=== PATIENT | male | born 1975 | race Caucasian/White ===

== ENCOUNTER 2023-04-04 07:24 | Inpatient (IN) | payer BC, SELFPAY ==
[2023-04-04] VITALS (77 sets, daily range): BP systolic 148–205; BP diastolic 87–129; PULSE 58–98; RESP 7–25; TEMP 36.5–37.1; O2SAT 88–100; BMI 29.8; BMI 32.4
[2023-04-04] MEDS: ondansetron 2 mg/ML SDV 2 mL 4 MG IVP ×2 (07:44→08:00)
[2023-04-04] MEDS: sodium chloride 0.9% 1,000 ML 999 ML IV ×2 (07:48→09:37)
[2023-04-04 07:51] LABS: Basophils # 0.1 10^3/uL (0.0-0.1); Basophils % 0.5 %; Eosinophils # 0.1 10^3/uL (0.0-0.8); Eosinophils % 0.6 %; Hematocrit 50.7 % (37-53); Lymphocytes # 1.5 10^3/uL (0.8-4.8); Lymphocytes % 11.8 %; Mean Corpuscular HGB Conc 36.7 g/dL (30-55); Mean Corpuscular Hemoglobin 36.9 pg (27-33); Mean Corpuscular Volume 100.6 fl (82-101); Mean Platelet Volume 9.2 fL (7.4-10.4); Monocytes # 0.7 10^3/uL (0.2-0.9); Neutrophils # 10.61 10^3/uL (1.8-7.7); Neutrophils % 81.6 %; Nucleated Red Blood Cells % 0 %; Platelet Count 245 10^3/cmm (157-399); Red Blood Count 5.04 10^6/uL (3.85-5.65); Red Cell Distribution Width 13.5 % (12.1-15.1); White Blood Count 12.99 10^3/uL (3.29-11.43)
--- NOTE | 2023-04-04 07:52 | ED_ITS ---
HPI - Abdominal Pain 2 General: Chief Complaint: ER Hold Stated Complaint: abd pain Time Seen by Provider: 04/04/23 07:26 Source: patient Mode of arrival: ambulatory History of Present Illness: 47-year-old male presents emergency room complaint of left flank left lower quadrant pain that began early this morning. Localizes the pain in the left lower quadrant at this time initially began in the flank he is moving around quite a bit trying to comfortable. He has been nauseous vomited a couple of times. MD elicited complaint: flank pain Onset (ago): hour(s) Pain Consistency: constant Location: L flank Severity: severe Quality: sharp Radiation: LLQ Exacerbating factors: nothing Relieving factors: nothing Associated Symptoms: Reports poor appetite and vomiting; Denies anorexia, belching, bloating, change in bowel habits, change in stool character, chills, coffee ground emesis, constipation, GI cramping, diarrhea, dyspepsia, dysuria, excessive flatus, fever(s), heartburn, hematochezia, hematuria, hematemesis, fecal incontinence, loose stools, melena, nausea and syncope Review of Systems 2 Const: Denies: fever(s) or chills Card: Denies: chest pain or syncope Resp: Denies: dyspnea GI: Reports: vomiting; Denies: abdominal pain, nausea, hematemesis, coffee ground emesis, heartburn, diarrhea, constipation, bloating, GI cramping, belching, excessive flatus, fecal incontinence, change in bowel habits, change in stool character, hematochezia or melena : Denies: dysuria, urinary frequency, urinary urgency or hematuria Musc: Denies: neck pain or back pain Skin/Breast: Denies: rash Physical Exam 2 Const: GENERAL APPEARANCE: cooperative ORIENTATION/CONSCIOUSNESS: Yes awake, Yes oriented to person, Yes oriented to place and Yes oriented to time HENMT: COMMON NORMALS: normocephalic, atraumatic and hearing grossly normal bilaterally HEAD & SCALP: normocephalic and atraumatic Resp: COMMON NORMALS: normal respiratory effort, No retractions, No use of accessory muscles and clear to auscultation bilaterally AUSCULTATION: clear to auscultation bilaterally Cardio: COMMON NORMALS: regular rate, regular rhythm and No murmurs present (Cardio) RATE: regular rate RHYTHM: regular rhythm GI: COMMON NORMALS: No hepatosplenomegaly present AUSCULTATION: Yes Hypoactive bowel sounds present PALPATION: Yes Guarding due to palpation present (GI) in the LLQ and Yes No hepatosplenomegaly present Extremity: COMMON NORMALS: normal to inspection, capillary refill normal, no clubbing, cyanosis or edema, no calf tenderness and no pedal edema Neuro: SENSORIUM/ORIENTATION: Yes oriented to person, Yes oriented to place and Yes oriented to time Skin: COMMON NORMALS: no rashes or lesions noted GENERAL SKIN EXAM: no rashes or lesions noted Course 2 Vital Signs: Vital signs: Vital Signs Temperature 98.7 F 04/04/23 07:27 Pulse Rate 68 04/04/23 10:00 Respiratory Rate 17 04/04/23 10:00 Blood Pressure 170/108 04/04/23 10:00 Pulse Oximetry 97 04/04/23 10:00 Oxygen Delivery Me thod Room Air 04/04/23 09:55 MDM - Abdominal Pain Medical Decision Making Acute alcohol-related pancreatitis slightly elevated triglycerides. Discussed Dr. Hagan will admit n.p.o. pain and nausea medications fluids as needed. CT reviewed gallbladder ultrasound negative no sign dilation of common bile duct Medical Records I reviewed the patient's medical records. Lab Data I reviewed the patient's lab results. 04/04/23 07:41 04/04/23 07:41 Labs/Radiology: Laboratory Results WBC 12.99 10^3/uL (3.29-11.43) H 04/04/23 07:41 RBC 5.04 10^6/uL (3.85-5.65) 04/04/23 07:41 Hgb 18.60 g/dL (11.27-16.99) H 04/04/23 07:41 Hct 50.7 % (37-53) 04/04/23 07:41 MCV 100.6 fl (82-101) 04/04/23 07:41 MCH 36.9 pg (27-33) H 04/04/23 07:41 MCHC 36.7 g/dL (30-55) 04/04/23 07:41 RDW 13.5 % (12.1-15.1) 04/04/23 07:41 Plt Count 245 10^3/cmm (157-399) 04/04/23 07:41 MPV 9.2 fL (7.4-10.4) 04/04/23 07:41 Neut % (Auto) 81.6 % 04/04/23 07:41 Lymph % (Auto) 11.8 % 04/04/23 07:41 Imperial % (Auto) 5.0 % 04/04/23 07:41 Eos % (Auto) 0.6 % 04/04/23 07:41 Baso % (Auto) 0.5 % 04/04/23 07:41 Neut # (Auto) 10.61 10^3/uL (1.8-7.7) H 04/04/23 07:41 Lymph # (Auto) 1.5 10^3/uL (0.8-4.8) 04/04/23 07:41 Imperial # (Auto) 0.7 10^3/uL (0.2-0.9) 04/04/23 07:41 Eos # (Auto) 0.1 10^3/uL (0.0-0.8) 04/04/23 07:41 Baso # (Auto) 0.1 10^3/uL (0.0-0.1) 04/04/23 07:41 Nucleated RBC % (auto) 0 % 04/04/23 07:41 Nucleated RBCs # 0.0 /100WBC 04/04/23 07:41 Sodium 139 mmol/L (136-145) 04/04/23 07:41 Potassium 2.7 mmol/L (3.5-5.1) L* 04/04/23 07:41 Chloride 99 mmol/L (98-107) 04/04/23 07:41 Carbon Dioxide 29 mmol/L (22-29) 04/04/23 07:41 Anion Gap 13.7 (5-19) 04/04/23 07:41 BUN 8 mg/dL (6-20) 04/04/23 07:41 Creatinine 0.9 mg/dL (0.7-1.2) 04/04/23 07:41 GFR Calculation 90.8 mL/min (90-130) 04/04/23 07:41 Glucose 149 mg/dL (65-115) H 04/04/23 07:41 Calculated Osmolality 289 mOsm/kg (285-295) 04/04/23 07:41 Calcium 9.3 mg/dL (8.5-10.5) 04/04/23 07:41 Magnesium 1.9 mg/dL (1.7-2.3) 04/04/23 07:41 Total Bilirubin 1.3 mg/dL (0.15-1.2) H 04/04/23 07:41 AST 45 U/L (0-40) H 04/04/23 07:41 ALT 43 U/L (0-41) H 04/04/23 07:41 Alkaline Phosphatase 78 U/L (40-130) 04/04/23 07:41 Total Protein 7.4 g/dL (6.6-8.7) 04/04/23 07:41 Albumin 4.4 g/dL (3.5-5.2) 04/04/23 07:41 Globulin 3.0 g/dL (1.3-4.6) 04/04/23 07:41 Triglycerides 442 mg/dL (0-150) H 04/04/23 07:41 LDL Cholesterol Direct 106 mg/dL (0-100) H 04/04/23 07:41 Lipase 1229 U/L (13-60) H 04/04/23 07:41 Urine Color Dark yellow (Yellow) 04/04/23 08:18 Urine Appearance Clear (CLEAR) 04/04/23 08:18 Urine pH 5 (5-7) 04/04/23 08:18 Ur Specific Ecru 1.030 (1.005-1.030) 04/04/23 08:18 Urine Protein 1+ (Negative) H 04/04/23 08:18 Urine Glucose (UA) Norm (Normal) 04/04/23 08:18 Urine Ketones 1+ (Negative) H 04/04/23 08:18 Urine Blood 2+ (Negative) H 04/04/23 08:18 Urine Nitrate Negative (Negative) 04/04/23 08:18 Urine Bilirubin 1+ (Negative) H 04/04/23 08:18 Urine Urobilinogen 1 mg/dL (Negative) H 04/04/23 08:18 Ur Leukocyte Esterase Trace (Negative) H 04/04/23 08:18 Urine RBC 0-4 /hpf (0-2) H 04/04/23 08:18 Urine WBC 0-4 /hpf (0-5) H 04/04/23 08:18 Ur Squamous Epith Cells Rare /hpf (0-5) 04/04/23 08:18 Ur Transition Epith Cell 0-4 /hpf 04/04/23 08:18 Amorphous Sediment Not Reportable 04/04/23 08:18 Urine Bacteria Trace /hpf (NONE) 04/04/23 08:18 Urine Mucus 4+ /hpf 04/04/23 08:18 Ethyl Alcohol < 10 mg/dL (0-10) 04/04/23 07:41 All radiology interpretation(s) finalized by discharge Discharge Plan Discharge Patient Disposition: Admitted As Inpatient Admit Provider: Aaron Hagan Clinical Impression: Pancreatitis Condition: Stable Coding Level of Care Code ED Vice President Of Instruction for Janneth Leone
--- NOTE | 2023-04-04 07:56 | ECG_ITS ---
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 Measurements Intervals Gardner Rate: 62 P: 39 AK: 142 QRS: 40 QRSD: 83 T: -16 QT: 402 QTc: 408 Interpretive Statements SINUS RHYTHM NONSPECIFIC T-WAVE ABNORMALITY No previous ECG available for comparison Electronically Signed On 04-04-2023 12:16:59 TELESCOPE REPAIRER by Anisha Degroot M.D. [id number]
--- NOTE | 2023-04-04 07:56 | CT_ITS ---
WS: [id number] CT scan of the abdomen and pelvis without Oral and IV contrast. Additional two-dimensional coronal an d sagittal reconstruction was performed. 04/04/2023 Clinical Data: flank pain Comparison: None. DLP: 1006.[address] scans at [facility] use at least one of these dose optimization techniques: automated e xposure control; mA and/or kV adjustment per patient size (includes targeted exams where dose is matc hed to clinical indication); or iterative reconstruction. Findings: The lower lungs show no nodules, masses or effusions. The liver, gallbladder, spleen and adrenal glands are normal. The pancreas is swollen with peripancre atic edema. There is a small amount of intraperitoneal fluid. There are no pancreatic masses, abscess es or cyst formation. The kidneys show no cysts or masses. No renal calculi are present. The stomach , small bowel and colon show no abnormalities. No adenopathy, abscess, obstruction or free air is see n. The abdominal aorta is normal in size. No appendicitis or diverticulitis is seen. The bladder is unremarkable. There are small bilateral inguinal hernias. The bones of the lower thora x, lumbar spine, pelvis, and hips are normal. Impression: 1. Diffuse pancreatitis with peripancreatic edema and minimal peritoneal fluid. 2. Normal aorta.
--- NOTE | 2023-04-04 07:56 | XR_ITS ---
WS: [id number] Exam: XR chest 1V portable [id number] Date/Time of Exam: 04/04/2023 8:06 AM Reason For Exam: dyspnea/cough No priors. The lungs are clear and fully expanded. No pleural effusions. Regional bony elements are intact. Heal ed RIGHT clavicle fracture. IMPRESSION: 1. Negative chest.
[2023-04-04] MEDS: morphine 4 mg/mL SDV 1 mL IVP ×3 (08:00→15:59)
[2023-04-04 08:09] LABS: Alanine Aminotransferase 43 U/L (0-41); Albumin Level 4.4 g/dL (3.5-5.2); Alkaline Phosphatase 78 U/L (40-130); Anion Gap 13.7 (5-19); Aspartate Amino Transferase 45 U/L (0-40); Blood Urea Nitrogen 8 mg/dL (6-20); Calcium 9.3 mg/dL (8.5-10.5); Carbon Dioxide 29 mmol/L (22-29); Chloride 99 mmol/L (98-107); Creatinine Clr Calc Pharmacy 125.4436; Glomerular Filtration Rate 90.8 mL/min (90-130); Glucose 149 mg/dL (65-115); Osmolality Calculated 289 mOsm/kg (285-295); Sodium 139 mmol/L (136-145); Total Bilirubin 1.3 mg/dL (0.15-1.2); Total Protein 7.4 g/dL (6.6-8.7)
[2023-04-04 08:12] LABS: Potassium 2.7 mmol/L (3.5-5.1)
[2023-04-04 08:24] LABS: Lipase 1229 U/L (13-60)
--- NOTE | 2023-04-04 08:29 | US_ITS ---
WS: [id number] Gallbladder and right upper quadrant 04/04/2023 ultrasound, Clinical Data: pancreatitis, elevated LFTS, T bili Comparison: None. Findings: The gallbladder shows no stone. Sludge is present. There are multiple gallbladder polyps. The wall me asures 0.2 cm with no pericholecystic fluid. The common bile duct is 0.3 cm and there are no intrahepatic ductal abnormalities. Liver shows no cysts, masses or dilated intrahepatic ducts. The pancreas is obscured by overlying bowel gas. Right kidney measures 11.6 cm and no cyst, masses or hydronephrosis can be seen. The aorta was not seen and the inferior vena cava shows no vascular abnormalities. Impression: 1. Pancreas obscured by overlying bowel gas. 2. Multiple gallbladder polyps. 3. Abdominal aorta not seen.
[2023-04-04 08:50] LABS: Add Urine Microscopic? YES; Bilirubin Urine 1+ (Negative); Blood Urine 2+ (Negative); Glucose Urine UA Norm (Normal); Ketones Urine 1+ (Negative); Leukocyte Esterase Urine Trace (Negative); Nitrate Urine Negative (Negative); Protein Urine 1+ (Negative); Urine Appearance Clear (CLEAR); Urine Color Dark Yellow (Yellow); Urobilinogen Urine 1 mg/dL (Negative); pH Urine 5 (5-7)
--- NOTE | 2023-04-04 08:52 | PC.PHAR ---
pt states he takes no prescription medications-pt states just takes prn tylenol
[2023-04-04 09:04] LABS: Add Urine Culture? No; Bacteria Urine TRACE /hpf; Mucus Urine 4+ /hpf; RBC Urine 0-4 /hpf (0-2); Squamous Epithelial Cell Urine RARE /hpf (0-5); Transitional Epi Cells Urine 0-4 /hpf; WBC Urine 0-4 /hpf (0-5)
[2023-04-04 09:13] LABS: Alcohol Level < 10 mg/dL (0-10)
[2023-04-04] MEDS: HYDROmorphone 1 mg/mL INJ 1 mL IVP ×5 (09:37→23:12)
[2023-04-04] MEDS: potassium chloride premix 100 ML 25 MEQ IV (09:41)
[2023-04-04 10:09] LABS: Triglycerides 442 mg/dL (0-150)
[2023-04-04 10:28] LABS: LDL Cholesterol Direct 106 mg/dL (0-100)
[2023-04-04 10:41] LABS: Magnesium 1.9 mg/dL (1.7-2.3)
[2023-04-04] MEDS: D5-NS 0.45% + KCL 20 mEq 20 MEQ/1,000 ML BAG 100 MEQ IV ×2 (12:14→20:19)
--- NOTE | 2023-04-04 13:15 | P.HP_ITS ---
Providers/Chief Complaint 2 Admitting Physician: Aaron Hagan MD Chief Complaint: abd pain History of Present Illness Xander Mcmillan is a 47 year old male presenting to the emergency department with 1 day of abdominal pain. He thinks this started in the left flank or left upper quadrant but quickly spread to the rest of his abdomen. He has had some vomiting. He denies any blood in his emesis or blood in the stool. His last bowel movement was yesterday. He reports a prior history of pancreatitis, with similar pain for which she was hospitalized in [place]. He reports he does drink alcohol, but he does not think it is a big amount. When asked if he might withdrawal from alcohol, he is uncertain and thinks that he might. Some subjective fever. No shortness of breath or chest discomfort. No cough. Review of Systems 2 General: Reports: 10 or more systems reviewed and unremarkable except in HPI and below Card: Denies: chest pain Resp: Denies: dyspnea GI: Reports: abdominal pain, nausea and vomiting; Denies: hematochezia or melena Medications/Allergies Home Medications Medication Instructions Recorded Confirmed Last Taken Type acetaminophen 500 mg tablet 1,000 mg PO Q6H PRN Pain 04/04/23 04/04/23 04/04/23 05:00 History Allergies Allergy/AdvReac Type Severity Reaction Status Date / Time No Known Allergies Allergy Verified 04/04/23 08:51 PFSH Acute 2 PFSH: Medical History (Updated 04/04/23 @ 13:22 by Aaron Hagan MD) Pancreatitis Surgical History (Updated 04/04/23 @ 13:18 by Aaron Hagan MD) History of ear surgery Family History (Updated 04/04/23 @ 13:18 by Aaron Hagan MD) Other Cancer Social History (Updated 04/04/23 @ 13:18 by Aaron Hagan MD) Smoking and tobacco/nicotine status: current every day tobacco/nicotine user Alcohol intake: current Substance/Drug Use: never Vitals/I&O/Wt Last Vital Signs Temp 98.7 F 04/04/23 07:27 Pulse 63 04/04/23 12:30 Resp 20 H 04/04/23 12:30 BP 165/99 04/04/23 12:30 Pulse Ox 100 04/04/23 12:30 O2 Del Method Room Air 04/04/23 11:45 04/03/23 04/04/23 04/04/23 22:59 06:59 14:59 Intake Total 2062.75 / 2062.75 Balance 2062.75 / 2062.75 Weight last 48 hrs Weight 99.79 kg Physical Exam 2 Narrative: General exam demonstrates a white male, complaining of abdominal pain. He appears uncomfortable during the exam. HEENT: Atraumatic and normocephalic. Mucous membranes dry. Neck is supple Cardiovascular regular rate and rhythm, no murmur Lungs clear Abdomen is tender, diffusely. No significant distention. A few bowel sounds are heard. Cannot determine if there is any organomegaly. exams deferred Extremities no cyanosis, edema, cap refill brisk Skin no rash Neuro no obvious focal deficits Data 04/04/23 07:41 04/04/23 07:41 Other Labs: Liver function tests are elevated with bilirubin of 1.3, AST of 45, ALT of 43. Albumin, alk phos, calcium, magnesium all normal. Triglycerides 442, lipase 1229. Urinalysis 0-4 reds 0-4 whites. Alcohol level less than 10. Gallbladder ultrasound demonstrates no evidence of obstruction. Multiple gallbladder polyps Chest x-ray by my review no infiltrate CT abdomen pelvis which I did review demonstrates pancreatic edema EKG which I reviewed demonstrates sinus rhythm, normal axis, nonspecific changes A&P Assessment and plan (1) Pancreatitis: Patient presents with acute pancreatitis demonstrated by clinical symptomatology, CT evidence, and elevated lipase Pain control with morphine as needed. Nausea control with Zofran. Hydration Triglycerides were checked and elevated, but not so significantly pancreatitis would be expected from them. Encourage patient abstain from alcohol (2) Nicotine dependence: Encourage abstinence from smoking Start nicotine patch 21 mg daily (3) Transaminitis: Likely secondary to alcohol CBC and CMP daily (4) Hyperglycemia: Check hemoglobin A1c. If elevated counseled patient, ultimately change diet to consistent carb (5) Hypokalemia: Supplementation started in the emergency department with IV potassium Recheck tomorrow Magnesium level was checked and normal (6) Alcohol use: Patient with history of significant alcohol use Monitor for withdrawal [facility] protocol Plan Other medical problems as listed in past medical history Full code SCDs, Lovenox for DVT prophylaxis Patient without primary care provider. Will need to arrange on discharge. Attestations 2 Medical Necessity Statement*: Will require greater than 2 midnight stay for evaluation and treatment of alcohol induced pancreatitis Diagnoses Pancreatitis K85.90 Nicotine dependence F17.200 Transaminitis R74.01 Hyperglycemia R73.9 Hypokalemia E87.6 Alcohol use Z78.9 Time Spent (min) 56
[2023-04-04] MEDS: enoxaparin 40 mg/0.4 mL Syringe SUBCUT (14:28)
[2023-04-04] MEDS: nicotine 21 mg Patch 1 PATCH TRANSDERMA (14:32)
[2023-04-04 14:51] LABS: Estmated Average Glucose 91; Hemoglobin A1C 4.8 % (4.0-6.0)
[2023-04-05] VITALS (17 sets, daily range): BP systolic 140–172; BP diastolic 85–125; PULSE 95–124; RESP 16–22; TEMP 36.5–37.6; O2SAT 92–95; BMI 32.5
[2023-04-05] MEDS: morphine 4 mg/mL SDV 1 mL 2 MG IVP (01:08)
[2023-04-05] MEDS: HYDROmorphone 1 mg/mL INJ 1 mL IVP ×6 (05:52→21:16)
[2023-04-05] MEDS: D5-NS 0.45% + KCL 20 mEq 20 MEQ/1,000 ML BAG 100 MEQ IV ×2 (05:53→17:15)
[2023-04-05 05:59] LABS: Basophils % 0.1 %; Hematocrit 47.4 % (37-53); Lymphocytes # 0.8 10^3/uL (0.8-4.8); Lymphocytes % 5.5 %; Mean Corpuscular HGB Conc 36.5 g/dL (30-55); Mean Corpuscular Hemoglobin 37.1 pg (27-33); Mean Corpuscular Volume 101.7 fl (82-101); Mean Platelet Volume 9.5 fL (7.4-10.4); Monocytes # 0.8 10^3/uL (0.2-0.9); Monocytes % 5.1 %; Neutrophils # 13.47 10^3/uL (1.8-7.7); Neutrophils % 88.9 %; Nucleated Red Blood Cells % 0 %; Platelet Count 176 10^3/cmm (157-399); Red Blood Count 4.66 10^6/uL (3.85-5.65); Red Cell Distribution Width 13.7 % (12.1-15.1); White Blood Count 15.16 10^3/uL (3.29-11.43)
[2023-04-05 06:22] LABS: Alanine Aminotransferase 26 U/L (0-41); Albumin Level 3.4 g/dL (3.5-5.2); Alkaline Phosphatase 52 U/L (40-130); Anion Gap 13.1 (5-19); Aspartate Amino Transferase 25 U/L (0-40); Blood Urea Nitrogen 5 mg/dL (6-20); Calcium 7.7 mg/dL (8.5-10.5); Carbon Dioxide 25 mmol/L (22-29); Chloride 101 mmol/L (98-107); Globulin 2.7 g/dL (1.3-4.6); Glomerular Filtration Rate 121.4 mL/min (90-130); Glucose 105 mg/dL (65-115); Magnesium 1.6 mg/dL (1.7-2.3); Osmolality Calculated 280 mOsm/kg (285-295); Potassium 3.1 mmol/L (3.5-5.1); Sodium 136 mmol/L (136-145); Total Bilirubin 1.1 mg/dL (0.15-1.2); Total Protein 6.1 g/dL (6.6-8.7)
[2023-04-05] MEDS: magnesium sulfate premix 2 GM/50 ML PIGGYBACK IV (08:14)
[2023-04-05] MEDS: acetaminophen 325 mg Tablet 650 MG PO (08:16)
[2023-04-05] MEDS: folic acid 1 mg Tablet PO (08:17)
[2023-04-05] MEDS: multivitamin therapeutic Tablet 1 TAB PO (08:17)
[2023-04-05] MEDS: thiamine 100 mg Tablet PO (08:17)
[2023-04-05] MEDS: lisinopril 10 mg Tablet PO (08:17)
[2023-04-05] MEDS: nicotine 21 mg Patch 1 PATCH TRANSDERMA (08:17)
[2023-04-05] MEDS: potassium chloride ER 20 mEq Tablet 40 MEQ PO (08:17)
[2023-04-05] MEDS: lidocaine 1% 5 ML in potassium chloride premix 100 ML 26.25 ML IV (08:27)
--- NOTE | 2023-04-05 08:58 | PC.CHAP ---
Pastoral Care Encounter/Spiritual Assessment Type of Contact [] Declined supercalender operator visit [] Patient/Family/Request visit [] Outpatient visit [] Follow-up visit [] Physician referral [] Code/Alert [x] Routine visit [] Staff referral [] Actively dying [] Patient sleeping [x] Family support [] [] Out of room [] Palliative care [] [] Receiving care in room [] Pre-surgical visit [] Trauma [] Long length of stay [] ICU visit [] Other: Relational/Emotional Strength [x] Patient feels connected with others/family/visitors/staff [] Distress [] Loneliness/isolation [] Abandonment Spirituality of Patient [x] Person of Radha [] Attends Rastafarian of their Radha [x] Believes in Prayer [] Reads Bible or Nondenominational materials [] There are Spiritual issues to be addressed Office Technology Professor Interventions [x] Prayer [x] Active listening [] Non-anxious presence [x] Spiritual/emotional support [] Crisis/trauma care [] Spiritual counseling [] Bereavement support [] Provided bereavement packet [] Provided Bible/devotional materials [] Provided toy/stuffed animal, coloring book to patient or family member [] Provided Communion [] Anointing/[place] [] Salvation [x] Completed spiritual assessment [] Other: Impact on Illness or Injury [] Angry [] Fearful [] Anxious [] Often cries [] Exhaustion [] Unable to work [] Unable to attend mu-ism [] Unable to walk/stand [] Unable to read [] Unable to drive [] Unable to eat/drink [] Unable to sleep [] Unable to be with family [] Patient intubated [] Other: Summary Time spent with patient 5 min
--- NOTE | 2023-04-05 09:05 | P.PN_ITS ---
Documented by User: carl Singer 04/05/23 09:15 Subjective 2 Subjective: Patient was evaluated this morning while lying in bed on room air. Patient states pain is slightly improved although reports pain a current 8/10 on pain scale. Patient reports current IV pain medication is controlling pain for a little bit but pain continues to return. Patient does report some nausea but denies any vomiting, fevers, chills, chest pain, shortness of breath. Reports that he is urinating and having bowel movements regularly. No other complaints at this time. Medications: Reviewed: Yes Vitals/I&O/Wt Last Vital Signs Temp 97.7 F 04/05/23 08:00 Pulse 97 04/05/23 08:00 Resp 17 04/05/23 08:49 BP 172/112 04/05/23 08:00 Pulse Ox 95 04/05/23 04:00 O2 Del Method Room Air 04/05/23 04:00 04/04/23 04/05/23 04/05/23 22:59 06:59 14:59 Intake Total 1048.333 / 3112.083 956.667 / 4068.750 60 / 60 Output Total 600 / 600 Balance 1048.333 / 3112.083 356.667 / 3468.750 60 / 60 Weight last 48 hrs Weight 108.771 kg Weight 108.59 kg Weight 99.79 kg Physical Exam 2 Narrative: General exam demonstrates a white male, complaining of abdominal pain. HEENT: Normocephalic, dry mucous membranes. Neck is supple Cardiovascular regular rate and rhythm, no murmur Lungs clear Abdomen is tender, diffusely. No significant distention. A few bowel sounds are heard. Cannot determine if there is any organomegaly. exams deferred Extremities no cyanosis, edema, cap refill brisk Skin no rash Neuro no obvious focal deficits Data 04/05/23 04:28 04/05/23 04:28 Other Labs: WBC 15.16, MCV 101.7, potassium 3.1, magnesium 1.6, A&P Assessment and plan (1) Pancreatitis: Pain control with Dilaudid. Nausea controlled with Zofran Continue IV hydration. Clear liquid diet at this time. Patient tolerating well. Alcohol cessation discussed. (2) Nicotine dependence: Nicotine cessation discussed. NicoDerm patch 20 mg daily. (3) Transaminitis: Monitor CBC and CMP daily. Most likely due to alcohol. (4) Hyperglycemia: Check hemoglobin A1c. If elevated counseled patient, ultimately change diet to consistent carb (5) Hypokalemia: Potassium 3.1 this a.m. Replace with 40 mEq IV and 40 mEq p.o. Magnesium 1.6 this a.m. Magnesium 2 g IV replacement. CMP in AM. (6) Alcohol use: As per #1 and #3 Continue to monitor for withdrawal CIWA protocol in place. Patient receiving Ativan and tolerating well. Plan Plan as stated above. Replace electrolytes today and continue pain control with Dilaudid. Patient tolerating clear liquid diet well. Full code SCDs, Lovenox for DVT prophylaxis Will need to arrange primary care provider upon discharge. Coding Level of Care Code 35874 Diagnoses Pancreatitis K85.90 Nicotine dependence F17.200 Transaminitis R74.01 Hyperglycemia R73.9 Hypokalemia E87.6 Alcohol use Z78.9 Time Spent (min) 25 Documented by User: Aaron Hagan MD 04/05/23 09:44 Physical Exam 2 Narrative: General exam demonstrates a white male, complaining of abdominal pain. HEENT: Normocephalic, dry mucous membranes. Neck is supple Cardiovascular regular rate and rhythm, no murmur Lungs clear Abdomen is tender, diffusely. No significant distention. A few bowel sounds are heard. Cannot determine if there is any organomegaly. exams deferred Extremities no cyanosis, edema, cap refill brisk Data 04/05/23 04:28 04/05/23 04:28 A&P Assessment and plan (1) Pancreatitis: (2) Nicotine dependence: (3) Transaminitis: These are normalized (4) Hyperglycemia: A1c is 4.8% (5) Hypokalemia: (6) Alcohol use: Attestations 2 Medical Necessity Statement*: Needs continued hospital stay for IV fluids, pain control secondary to pancreatitis not yet improved Diagnoses Pancreatitis K85.90 Nicotine dependence F17.200 Transaminitis R74.01 Hyperglycemia R73.9 Hypokalemia E87.6 Alcohol use Z78.9 Time Spent (min) 25
[2023-04-05] MEDS: enoxaparin 40 mg/0.4 mL Syringe SUBCUT (15:07)
[2023-04-05] MEDS: ondansetron 2 mg/ML SDV 2 mL 4 MG IVP (21:25)
[2023-04-06] VITALS (12 sets, daily range): BP systolic 132–176; BP diastolic 82–93; PULSE 107–114; RESP 16–18; TEMP 36.6–37; O2SAT 92–94; BMI 33.2
[2023-04-06] MEDS: HYDROmorphone 1 mg/mL INJ 1 mL IVP ×6 (00:39→23:30)
[2023-04-06] MEDS: D5-NS 0.45% + KCL 20 mEq 20 MEQ/1,000 ML BAG 100 MEQ IV ×3 (03:52→23:30)
[2023-04-06] MEDS: acetaminophen 325 mg Tablet 650 MG PO (05:28)
[2023-04-06 05:33] LABS: Basophils % 0.2 %; Eosinophils % 0.1 %; Hematocrit 43.5 % (37-53); Lymphocytes # 0.9 10^3/uL (0.8-4.8); Lymphocytes % 4.8 %; Mean Corpuscular HGB Conc 36.6 g/dL (30-55); Mean Corpuscular Volume 101.2 fl (82-101); Mean Platelet Volume 9.8 fL (7.4-10.4); Monocytes % 5.4 %; Neutrophils # 15.85 10^3/uL (1.8-7.7); Neutrophils % 88.3 %; Nucleated Red Blood Cells % 0 %; Platelet Count 158 10^3/cmm (157-399); White Blood Count 17.95 10^3/uL (3.29-11.43)
[2023-04-06 07:02] LABS: Alanine Aminotransferase 19 U/L (0-41); Alkaline Phosphatase 51 U/L (40-130); Anion Gap 14.2 (5-19); Aspartate Amino Transferase 23 U/L (0-40); Blood Urea Nitrogen 6 mg/dL (6-20); Calcium 7.3 mg/dL (8.5-10.5); Carbon Dioxide 24 mmol/L (22-29); Chloride 101 mmol/L (98-107); Globulin 2.4 g/dL (1.3-4.6); Glomerular Filtration Rate 121.4 mL/min (90-130); Glucose 102 mg/dL (65-115); Magnesium 1.9 mg/dL (1.7-2.3); Osmolality Calculated 280 mOsm/kg (285-295); Potassium 3.2 mmol/L (3.5-5.1); Sodium 136 mmol/L (136-145); Total Bilirubin 1.3 mg/dL (0.15-1.2); Total Protein 5.4 g/dL (6.6-8.7)
[2023-04-06] MEDS: amlodipine 5 mg Tablet PO (08:28)
[2023-04-06] MEDS: thiamine 100 mg Tablet PO (08:28)
[2023-04-06] MEDS: nicotine 21 mg Patch 1 PATCH TRANSDERMA (08:28)
[2023-04-06] MEDS: folic acid 1 mg Tablet PO (08:28)
[2023-04-06] MEDS: multivitamin therapeutic Tablet 1 TAB PO (08:28)
[2023-04-06] MEDS: enoxaparin 40 mg/0.4 mL Syringe SUBCUT (13:06)
--- NOTE | 2023-04-06 16:01 | XRR_ITS ---
PROCEDURE INFORMATION: Exam: XR Abdomen Exam date and time: 04/06/2023 5:30 PM Age: 47 years old Clinical indication: Abdominal tenderness and bloating; Patient HX: Pancreatitis; Abdominal distention; Suspected ileus; Additional info: Evalaute for ileus, severe pancreatitis, now with abdominal distension, evalaute TECHNIQUE: Imaging protocol: Radiologic exam of the abdomen. Views: Frontal supine view of the abdomen. 1 View. COMPARISON: CT kidney stone [id number] 04/04/2023 9:11 AM FINDINGS: Gastrointestinal tract: Normal. No bowel dilation. Bones/joints: Moderate osteoarthritis of the hips bilaterally. XR/XR abdomen 1V* [id number] IMPRESSION: Moderate osteoarthritis of the hips bilaterally.
[2023-04-06] MEDS: ketorolac 30 mg/mL INJ 15 MG IVP ×2 (16:28→22:15)
--- NOTE | 2023-04-06 23:07 | P.PN_ITS ---
Subjective 2 Subjective: c/o abdominal pain worsened today and also abdominal distension. Has not had BM today. states not passing much flatus. Medications: Reviewed: Yes Vitals/I&O/Wt Last Vital Signs Temp 98 F 04/06/23 20:00 Pulse 107 H 04/06/23 20:00 Resp 17 04/06/23 20:00 BP 152/92 04/06/23 20:00 Pulse Ox 94 04/06/23 20:00 O2 Del Method Room Air 04/06/23 15:57 04/06/23 04/06/23 04/07/23 14:59 22:59 06:59 Intake Total 1150 / 1150 240 / 1390 Output Total 100 / 100 500 / 600 Balance 1050 / 1050 -260 / 790 Weight last 48 hrs Weight 111.039 kg Weight 108.771 kg Physical Exam 2 Narrative: General: No acute distress, AO x3 HEENT: PERRLA, pupils bilaterally equal and reactive, pallors not present Chest: Normal vesicular breath sounds, no added sounds, equal good air entry bilaterally CVS: S1-S2 regular, no murmurs, no tachycardia, no gallops, no rubs Abdomen: Soft, tender in epigastria area, no organomegaly, bowel sounds sluggish Neuro: No focal deficits, no facial deformity, AO x3, power 5/5 in all limbs Data 04/07/23 04:33 04/07/23 04:33 A&P Assessment and plan (1) Pancreatitis: Pain control with Dilaudid. Nausea controlled with Zofran Continue IV hydration. Clear liquid diet at this time. Patient tolerating well. Alcohol cessation discussed. (2) Nicotine dependence: Nicotine cessation discussed. NicoDerm patch 20 mg daily. (3) Transaminitis: These are normalized (4) Hyperglycemia: A1c is 4.8% (5) Hypokalemia: Potassium 3.1 this a.m. Replace with 40 mEq IV and 40 mEq p.o. Magnesium 1.6 this a.m. Magnesium 2 g IV replacement. CMP in AM. (6) Alcohol use: As per #1 and #3 Continue to monitor for withdrawal CIWA protocol in place. Patient receiving Ativan and tolerating well. Plan Plan as stated above. Replace electrolytes today and continue pain control with Dilaudid. Patient tolerating clear liquid diet well. Full code SCDs, Lovenox for DVT prophylaxis Will need to arrange primary care provider upon discharge. Plan for today: 04/06. Inadeqautely controlled pain. He is tender in the epigatsric area. add toradol 15 mg iv q6h prn for pain control. Iv tylenol x 1 for pain. Check X ray abdomen to evaluate for possible ileus. Add prn bowel regimen with opiates. Continue clears if X ray without ileus. Attestations 2 Medical Necessity Statement*: inadequate pain control. Add iv toradol in addition to iv dilaudid. Check X ray abdomen for ileus Coding Level of Care Code Acute Code for Chg Fwd Diagnoses Pancreatitis K85.90 Nicotine dependence F17.200 Transaminitis R74.01 Hyperglycemia R73.9 Hypokalemia E87.6 Alcohol use Z78.9
[2023-04-07] VITALS (12 sets, daily range): BP systolic 122–163; BP diastolic 71–97; PULSE 97–107; RESP 13–18; TEMP 36.6–37; O2SAT 94–97
[2023-04-07] MEDS: lidocaine 2% viscous 15 ML, aluminum-mag hydrox-simethicon 30 ML, sucralfate oral liq 1 GM PO (00:14)
[2023-04-07] MEDS: HYDROmorphone 1 mg/mL INJ 1 mL IVP ×6 (03:00→22:30)
[2023-04-07] MEDS: ketorolac 30 mg/mL INJ 15 MG IVP ×2 (04:17→09:49)
[2023-04-07 05:02] LABS: Basophils % 0.3 %; Eosinophils # 0.1 10^3/uL (0.0-0.8); Eosinophils % 0.6 %; Hematocrit 38.4 % (37-53); Lymphocytes # 0.9 10^3/uL (0.8-4.8); Lymphocytes % 6.8 %; Mean Corpuscular HGB Conc 35.9 g/dL (30-55); Mean Corpuscular Hemoglobin 36.9 pg (27-33); Mean Corpuscular Volume 102.7 fl (82-101); Mean Platelet Volume 9.9 fL (7.4-10.4); Monocytes # 0.9 10^3/uL (0.2-0.9); Monocytes % 6.8 %; Neutrophils # 11.41 10^3/uL (1.8-7.7); Neutrophils % 84.8 %; Nucleated Red Blood Cells % 0 %; Platelet Count 150 10^3/cmm (157-399); Red Blood Count 3.74 10^6/uL (3.85-5.65); Red Cell Distribution Width 13.7 % (12.1-15.1); White Blood Count 13.46 10^3/uL (3.29-11.43)
[2023-04-07 05:23] LABS: Alanine Aminotransferase 17 U/L (0-41); Albumin Level 2.7 g/dL (3.5-5.2); Alkaline Phosphatase 97 U/L (40-130); Anion Gap 12.2 (5-19); Aspartate Amino Transferase 18 U/L (0-40); Blood Urea Nitrogen 6 mg/dL (6-20); Calcium 7.4 mg/dL (8.5-10.5); Carbon Dioxide 25 mmol/L (22-29); Chloride 102 mmol/L (98-107); Globulin 2.9 g/dL (1.3-4.6); Glomerular Filtration Rate 121.4 mL/min (90-130); Glucose 116 mg/dL (65-115); Osmolality Calculated 281 mOsm/kg (285-295); Potassium 3.2 mmol/L (3.5-5.1); Sodium 136 mmol/L (136-145); Total Bilirubin 0.8 mg/dL (0.15-1.2); Total Protein 5.6 g/dL (6.6-8.7)
[2023-04-07] MEDS: nicotine 21 mg Patch 1 PATCH TRANSDERMA (09:50)
[2023-04-07] MEDS: amlodipine 5 mg Tablet PO (09:50)
[2023-04-07] MEDS: folic acid 1 mg Tablet PO (09:50)
[2023-04-07] MEDS: thiamine 100 mg Tablet PO (09:50)
[2023-04-07] MEDS: multivitamin therapeutic Tablet 1 TAB PO (09:50)
[2023-04-07] MEDS: D5-NS 0.45% + KCL 20 mEq 20 MEQ/1,000 ML BAG 100 MEQ IV ×2 (10:39→21:26)
[2023-04-07] MEDS: enoxaparin 40 mg/0.4 mL Syringe SUBCUT (13:28)
[2023-04-07] MEDS: fentaNYL 25 mcg Patch 1 PATCH TRANSDERMA (16:35)
--- NOTE | 2023-04-07 18:14 | P.PN_ITS ---
Subjective 2 Subjective: Pain remains uncontrolled. Noted to be tachycardic related to pain. Blood pressure is stable. He states that Toradol tends to make his pain worse. Not willing to try further doses. Passing minimal flatus. Not had a bowel movement yet. Wishes to try to advance diet to full liquid today. Leukocytosis down to 13. Medications: Reviewed: Yes Vitals/I&O/Wt Last Vital Signs Temp 98.3 F 04/07/23 16:00 Pulse 101 H 04/07/23 16:00 Resp 18 04/07/23 16:00 BP 145/97 04/07/23 16:00 Pulse Ox 97 04/07/23 16:00 O2 Del Method Room Air 04/07/23 16:00 04/07/23 04/07/23 04/07/23 06:59 14:59 22:59 Intake Total 936.667 / 2326.667 1480 / 1480 Output Total 250 / 850 250 / 250 Balance 686.667 / 4607.342 0757 / 1230 Weight last 48 hrs Weight 110.813 kg Weight 111.039 kg Physical Exam 2 Narrative: General: No acute distress, AO x3 HEENT: PERRLA, pupils bilaterally equal and reactive, pallors not present Chest: Normal vesicular breath sounds, no added sounds, equal good air entry bilaterally CVS: S1-S2 regular, no murmurs, no tachycardia, no gallops, no rubs Abdomen: Soft, tender in epigastria area, no organomegaly, bowel sounds sluggish Neuro: No focal deficits, no facial deformity, AO x3, power 5/5 in all limbs Data 04/07/23 04:33 04/07/23 04:33 A&P Assessment and plan (1) Pancreatitis: Pain control with Dilaudid. Nausea controlled with Zofran Continue IV hydration. Clear liquid diet at this time. Patient tolerating well. Alcohol cessation discussed. (2) Nicotine dependence: Nicotine cessation discussed. NicoDerm patch 20 mg daily. (3) Transaminitis: These are normalized (4) Hyperglycemia: A1c is 4.8% (5) Hypokalemia: Potassium 3.1 this a.m. Replace with 40 mEq IV and 40 mEq p.o. Magnesium 1.6 this a.m. Magnesium 2 g IV replacement. CMP in AM. (6) Alcohol use: As per #1 and #3 Continue to monitor for withdrawal CIWA protocol in place. Patient receiving Ativan and tolerating well. Plan Plan as stated above. Replace electrolytes today and continue pain control with Dilaudid. Patient tolerating clear liquid diet well. Full code SCDs, Lovenox for DVT prophylaxis Will need to arrange primary care provider upon discharge. Plan for today: 04/06. Inadeqautely controlled pain. He is tender in the epigatsric area. add toradol 15 mg iv q6h prn for pain control. Iv tylenol x 1 for pain. Check X ray abdomen to evaluate for possible ileus. Add prn bowel regimen with opiates. Continue clears if X ray without ileus. Plan for today 04/07/2023. X-ray of the abdomen negative for ileus. Passing some flatus. Added bowel regimen. Pain is uncontrolled. Does not want to keep with the IV Toradol. Added fentanyl patch 25 mics. He has been tachycardic most of the day, suspect this is related to pain. Will add fentanyl patch and continue monitoring. He states that he is starting to get hungry and would like to trial a full liquid diet today. Attestations 2 Medical Necessity Statement*: Optimizing pain control, add 25 cristobal fentanyl patch for acute pain. Monitor for response. Coding Level of Care Code Acute Code for Chg Fwd Moderate MDM includes number and complexity of problems actively addressed during encounter, amount and/or complexity of data reviewed/ordered and described risk of complication, morbidity or mortality of management as documented Diagnoses Pancreatitis K85.90 Nicotine dependence F17.200 Transaminitis R74.01 Hyperglycemia R73.9 Hypokalemia E87.6 Alcohol use Z78.9
[2023-04-07 22:00] LABS: Add Urine Microscopic? YES; Bilirubin Urine Neg (Negative); Blood Urine 2+ (Negative); Glucose Urine UA Norm (Normal); Ketones Urine 1+ (Negative); Leukocyte Esterase Urine Negative (Negative); Nitrate Urine Negative (Negative); Protein Urine Trace (Negative); Sulfosalicylic Acid Urine Negative (Negative); Urine Appearance Clear (CLEAR); Urine Color Yellow (Yellow); Urobilinogen Urine Norm (Negative); pH Urine 8 (5-7)
[2023-04-07 22:01] LABS: Add Urine Culture? No; Bacteria Urine TRACE /hpf; Mucus Urine TRACE /hpf; RBC Urine 0-4 /hpf (0-2); Squamous Epithelial Cell Urine 0-4 /hpf (0-5); WBC Urine 0-4 /hpf (0-5)
[2023-04-08] VITALS (10 sets, daily range): BP systolic 136–154; BP diastolic 83–100; PULSE 96–104; RESP 17–18; TEMP 36.7–37.2; O2SAT 96–98
[2023-04-08] MEDS: ketorolac 30 mg/mL INJ 15 MG IVP ×2 (00:44→22:11)
[2023-04-08] MEDS: HYDROmorphone 1 mg/mL INJ 1 mL IVP ×5 (04:01→20:35)
[2023-04-08 05:21] LABS: Basophils % 0.3 %; Eosinophils # 0.2 10^3/uL (0.0-0.8); Eosinophils % 1.3 %; Hematocrit 38.1 % (37-53); Lymphocytes # 1.2 10^3/uL (0.8-4.8); Mean Corpuscular Hemoglobin 37.1 pg (27-33); Mean Corpuscular Volume 103.3 fl (82-101); Monocytes # 1.1 10^3/uL (0.2-0.9); Monocytes % 9.1 %; Neutrophils # 9.58 10^3/uL (1.8-7.7); Neutrophils % 78.6 %; Nucleated Red Blood Cells % 0 %; Platelet Count 211 10^3/cmm (157-399); Red Blood Count 3.69 10^6/uL (3.85-5.65); Red Cell Distribution Width 13.7 % (12.1-15.1); White Blood Count 12.19 10^3/uL (3.29-11.43)
[2023-04-08 06:01] LABS: Slide Review Slide Review Perform
[2023-04-08 06:56] LABS: Alanine Aminotransferase 23 U/L (0-41); Alkaline Phosphatase 93 U/L (40-130); Aspartate Amino Transferase 35 U/L (0-40); Blood Urea Nitrogen 5 mg/dL (6-20); Calcium 8.2 mg/dL (8.5-10.5); Carbon Dioxide 24 mmol/L (22-29); Chloride 98 mmol/L (98-107); Globulin 3.3 g/dL (1.3-4.6); Glomerular Filtration Rate 121.4 mL/min (90-130); Glucose 88 mg/dL (65-115); Osmolality Calculated 273 mOsm/kg (285-295); Sodium 133 mmol/L (136-145); Total Bilirubin 0.9 mg/dL (0.15-1.2); Total Protein 6.3 g/dL (6.6-8.7)
[2023-04-08] MEDS: D5-NS 0.45% + KCL 20 mEq 20 MEQ/1,000 ML BAG 100 MEQ IV ×2 (07:32→22:07)
[2023-04-08] MEDS: amlodipine 5 mg Tablet PO (08:01)
[2023-04-08] MEDS: nicotine 21 mg Patch 1 PATCH TRANSDERMA (08:01)
[2023-04-08] MEDS: thiamine 100 mg Tablet PO (08:01)
[2023-04-08] MEDS: folic acid 1 mg Tablet PO (08:01)
[2023-04-08] MEDS: multivitamin therapeutic Tablet 1 TAB PO (08:01)
[2023-04-08] MEDS: sennosides-docusate Tablet 1 TAB PO (08:01)
--- NOTE | 2023-04-08 10:43 | CTR_ITS ---
PROCEDURE INFORMATION: Exam: CT Abdomen And Pelvis With Contrast Exam date and time: 04/08/2023 1:20 PM Age: 47 years old Clinical indication: Abdominal pain; Additional info: Abdominal pain, distention TECHNIQUE: Imaging protocol: Computed tomography of the abdomen and pelvis with contrast. Radiation optimization: All CT scans at this facility use at least one of these dose optimization techniques: automated exposure control; mA and/or kV adjustment per patient size (includes targeted exams where dose is matched to clinical indication); or iterative reconstruction. Contrast material: OMNI 350; Contrast volume: 100 ml; Contrast route: INTRAVENOUS (IV); REPORTING DATA: Count of CT and Cardiac NM exams in prior 12 months: This patient has received [address] and 0 known cardiac nuclear medicine studies in the 12 months prior to the current study. COMPARISON: CT kidney stone [id number] 04/04/2023 9:11 AM RADIATION DOSE METRICS: Total DLP (mGy-cm): 1097.63 FINDINGS: Lungs: Bilateral nksq-ahwpmni-zhvz-right mild basilar pleural effusions with subjacent atelectasis, new from previous exam. Liver: Normal. No mass. Gallbladder and bile ducts: Partially contracted gallbladder without identification of calcification or stones. No significant biliary ductal dilatation. Pancreas: Edematous pancreas with peripancreatic hypodense edema/inflammation with small amount of intraperitoneal fluid. Findings suggest pancreatitis with mild worsening of edema and/or peripancreatic inflammation with previous exam. Again, no focal mass, pseudocyst, or abscess is seen. Spleen: Normal. No splenomegaly. Adrenal glands: Normal. No mass. Kidneys and ureters: Approximately 1 cm rounded hypodense focus of fluid density noted within the posterior mid to lower pole cortex of the left kidney. Additional tiny too small to characterize rounded hypodense focus noted within the anterior lower pole cortex of the left kidney. Findings suggest small benign renal cysts. Kidneys are otherwise unremarkable. No hydronephrosis or obstruction. No perinephric stranding. Stomach and bowel: Some of the adjacent small bowel and stomach demonstrates mild thickening or edema associated with peripancreatic edema and inflammation. No bowel obstruction though with suggestion tvtm-es-ioxhhffv ileus. Appendix: No evidence of appendicitis. Intraperitoneal space: Small amount of intraperitoneal fluid. No free air.. Vasculature: Unremarkable. No abdominal aortic aneurysm. Lymph nodes: Unremarkable. No enlarged lymph nodes. Urinary bladder: Unremarkable as visualized. Reproductive: Unremarkable as visualized. Bones/joints: No acute osseous abnormality. Soft tissues: Small inguinal hernias fat and tiny umbilical hernia of fat. CT/CT abdomen pelvis w con* [id number] IMPRESSION: 1. Findings again suggestive of diffuse pancreatitis with peripancreatic edema/inflammation and small amount of intraperitoneal fluid with mild worsening from recent prior exam. No focal pseudocyst or abscess is seen. 2. Associated pdot-hq-cqqwiset ileus. 3. Associated bilateral evag-hfglhqh-mnml-right mild basilar pleural effusions with subjacent atelectasis. COMMENTS: Consistent with the [employer]'s Incidental Findings Committee white paper (J Am Kaitlin Radiol 2018): Any incidental renal lesion less than 1 cm or classified as too small to characterize, or any incidental cystic renal lesion characterized as simple-appearing, is likely benign. No follow-up imaging is recommended for these lesions per consensus recommendations based on imaging criteria.
[2023-04-08] MEDS: lidocaine 1% 5 ML in potassium chloride premix 100 ML 26.25 ML IV (11:02)
[2023-04-08 11:26] LABS: C Reactive Protein 245.4 mg/L (0.0-4.9)
[2023-04-08 11:32] LABS: Procalcitonin 0.21 ng/mL (0-0.5)
[2023-04-08] MEDS: enoxaparin 40 mg/0.4 mL Syringe SUBCUT (12:54)
[2023-04-08] MEDS: iohexol 350 mg/mL 500 mL Btl (per mL) IV (13:34)
--- NOTE | 2023-04-08 16:43 | P.PN_ITS ---
Vitals/I&O/Wt Last Vital Signs Temp 98.5 F 04/08/23 15:20 Pulse 104 H 04/08/23 15:20 Resp 18 04/08/23 15:52 BP 137/83 04/08/23 15:20 Pulse Ox 98 04/08/23 15:20 O2 Del Method Room Air 04/08/23 15:20 04/08/23 04/08/23 04/08/23 06:59 14:59 22:59 Intake Total 1345 / 1345 Output Total 700 / 950 Balance -700 / 1770 1345 / 1345 Weight last 48 hrs Weight 113.511 kg Weight 110.813 kg Physical Exam 2 Const: COMMON NORMALS: no acute distress and patient oriented x3 Resp: COMMON NORMALS: normal respiratory effort, No retractions, No use of accessory muscles and clear to auscultation bilaterally AUSCULTATION: clear to auscultation bilaterally Cardio: COMMON NORMALS: regular rate, regular rhythm, S1 normal heart sound present and S2 normal heart sound present RATE: regular rate RHYTHM: r egular rhythm HEART SOUNDS: S1 normal heart sound present and S2 normal heart sound present GI: COMMON NORMALS: Soft to palpation INSPECTION: Yes normal to inspection and Yes abdominal distension AUSCULTATION: Yes normoactive bowel sounds P ALPATION: Yes Soft to palpation, Yes Tenderness to palpation present (GI) Details: LUQ and RUQ, No Guarding due to palpation present (GI) and No Rigid due to palpation Extremity: COMMON NORMALS: no pedal edema Neuro: COMMON NORMALS: patient oriented x3 Psych: COMMON NORMALS: mental status grossly normal Data 04/08/23 04:36 04/08/23 06:22 A&P Assessment and plan (1) Pancreatitis: Pain control with Dilaudid. Nausea controlled with Zofran Continue IV hydration. Clear liquid diet at this time. Patient tolerating well. Alcohol cessation discussed. (2) Nicotine dependence: Nicotine cessation discussed. NicoDerm patch 20 mg daily. (3) Transaminitis: These are normalized (4) Hyperglycemia: A1c is 4.8% (5) Hypokalemia: replace today (6) Alcohol use: As per #1 and #3 Continue to monitor for withdrawal CIWA protocol in place. Patient receiving Ativan and tolerating well. Plan Plan as stated above. Replace electrolytes today and continue pain control with Dilaudid. Patient tolerating clear liquid diet well. Full code SCDs, Lovenox for DVT prophylaxis Will need to arrange primary care provider upon discharge. due to persistent abdominal pain will repeat abdominal ct scam Attestations 2 Medical Necessity Statement*: patient requires hospitalization due to pancreatitis Diagnoses Pancreatitis K85.90 Nicotine dependence F17.200 Transaminitis R74.01 Hyperglycemia R73.9 Hypokalemia E87.6 Alcohol use Z78.9
[2023-04-08] MEDS: ondansetron 2 mg/ML SDV 2 mL 4 MG IVP (20:39)
[2023-04-08 20:50] LABS: Lipase 65 U/L (13-60)
[2023-04-09] VITALS (14 sets, daily range): BP systolic 117–170; BP diastolic 73–93; PULSE 92–105; RESP 15–19; TEMP 36.3–37.2; O2SAT 92–98
[2023-04-09] MEDS: HYDROmorphone 1 mg/mL INJ 1 mL IVP ×4 (01:22→14:40)
[2023-04-09 05:09] LABS: Basophils # 0.1 10^3/uL (0.0-0.1); Basophils % 0.5 %; Eosinophils # 0.3 10^3/uL (0.0-0.8); Hematocrit 36.9 % (37-53); Lymphocytes # 1.4 10^3/uL (0.8-4.8); Lymphocytes % 11.1 %; Mean Corpuscular HGB Conc 35.2 g/dL (30-55); Mean Corpuscular Hemoglobin 37.4 pg (27-33); Mean Platelet Volume 9.5 fL (7.4-10.4); Monocytes # 1.2 10^3/uL (0.2-0.9); Monocytes % 9.7 %; Neutrophils # 9.34 10^3/uL (1.8-7.7); Neutrophils % 75.9 %; Nucleated Red Blood Cells % 0 %; Platelet Count 216 10^3/cmm (157-399); Red Blood Count 3.48 10^6/uL (3.85-5.65); Red Cell Distribution Width 13.8 % (12.1-15.1)
[2023-04-09 05:34] LABS: Alanine Aminotransferase 49 U/L (0-41); Alkaline Phosphatase 112 U/L (40-130); Aspartate Amino Transferase 57 U/L (0-40); Blood Urea Nitrogen 6 mg/dL (6-20); C Reactive Protein 169.3 mg/L (0.0-4.9); Calcium 7.9 mg/dL (8.5-10.5); Carbon Dioxide 26 mmol/L (22-29); Chloride 101 mmol/L (98-107); Glomerular Filtration Rate 121.4 mL/min (90-130); Glucose 87 mg/dL (65-115); Magnesium 2.4 mg/dL (1.7-2.3); Osmolality Calculated 281 mOsm/kg (285-295); Sodium 137 mmol/L (136-145); Total Bilirubin 0.8 mg/dL (0.15-1.2)
[2023-04-09 05:40] LABS: Anion Gap 13.4 (5-19); Potassium 3.4 mmol/L (3.5-5.1)
[2023-04-09] MEDS: nicotine 21 mg Patch 1 PATCH TRANSDERMA (07:43)
[2023-04-09] MEDS: thiamine 100 mg Tablet PO (07:44)
[2023-04-09] MEDS: multivitamin therapeutic Tablet 1 TAB PO (07:44)
[2023-04-09] MEDS: amlodipine 5 mg Tablet PO (07:44)
[2023-04-09] MEDS: folic acid 1 mg Tablet PO (07:45)
[2023-04-09] MEDS: D5-NS 0.45% + KCL 20 mEq 20 MEQ/1,000 ML BAG 100 MEQ IV ×2 (07:45→17:11)
[2023-04-09] MEDS: lidocaine 1% 5 ML in potassium chloride premix 100 ML 26.25 ML IV (08:49)
[2023-04-09 10:05] LABS: Lipase 63 U/L (13-60)
[2023-04-09] MEDS: enoxaparin 40 mg/0.4 mL Syringe SUBCUT (13:26)
--- NOTE | 2023-04-09 16:13 | P.PN_ITS ---
Subjective 2 Subjective: Patient was seen this morning, continues to have abdominal pain complains of bloating, but passing gas from below, he reports a clear liquid bowel movement, no nausea, no vomiting, he tells me he has been tolerating a full liquid diet, we discussed trying a GI soft diet to see if he can tolerate it, he is agreeable discussed his CT scan findings, pancreatitis, ileus, but he reports having a bowel movement, passing gas Vitals/I&O/Wt Last Vital Signs Temp 97.6 F 04/09/23 12:00 Pulse 99 04/09/23 13:34 Resp 18 04/09/23 14:40 BP 151/80 04/09/23 12:00 Pulse Ox 96 04/09/23 12:00 O2 Del Method Room Air 04/09/23 12:00 04/09/23 04/09/23 04/09/23 06:59 14:59 22:59 Intake Total 1308.333 / 1308.333 Output Total 450 / 1350 200 / 200 Balance -450 / 1055 1108.333 / 1108.333 Weight last 48 hrs Weight 110.813 kg Weight 113.511 kg Physical Exam 2 Const: COMMON NORMALS: no acute distress and patient oriented x3 Resp: COMMON NORMALS: normal respiratory effort, No retractions, No use of accessory muscles and clear to auscultation bilaterally AUSCULTATION: clear to auscultation bilaterally Cardio: COMMON NORMALS: regular rate, regular rhythm, S1 normal heart sound present and S2 normal heart sound present RATE: regular rate RHYTHM: r egular rhythm HEART SOUNDS: S1 normal heart sound present and S2 normal heart sound present GI: COMMON NORMALS: Normal to inspection, nondistended, normoactive bowel sounds present and non-tender Extremity: COMMON NORMALS: no pedal edema Neuro: COMMON NORMALS: patient oriented x3 Psych: COMMON NORMALS: mental status grossly normal Data 04/09/23 04:46 04/09/23 04:46 A&P Assessment and plan (1) Pancreatitis: 1. Findings again suggestive of diffuse pancreatitis with peripancreatic edema/inflammation and small amount of intraperitoneal fluid with mild worsening from recent prior exam. No focal pseudocyst or abscess is seen. 2. Associated uclx-nb-rprxvyjz ileus. 3. Associated bilateral brgy-kblwsbx-mprg-right mild basilar pleural effusions with subjacent atelectasis. Pain control with Dilaudid., Transition to oxycodone, transition off fentanyl patch Nausea controlled with Zofran Continue IV hydration. Clear liquid diet at this time. Patient tolerating well. Alcohol cessation discussed. (2) Nicotine dependence: Nicotine cessation discussed. NicoDerm patch 20 mg daily. (3) Transaminitis: These are normalized (4) Hyperglycemia: A1c is 4.8% (5) Hypokalemia: replace today (6) Alcohol use: As per #1 and #3 Continue to monitor for withdrawal CIWA protocol in place. Patient receiving Ativan and tolerating well. Plan Plan as stated above. Replace electrolytes today and continue pain control with Dilaudid. Patient tolerating clear liquid diet well. Full code Enedina Evans for DVT prophylaxis Will need to arrange primary care provider upon discharge. Attestations 2 Medical Necessity Statement*: Patient requires hospitalization for acute pancreatitis Diagnoses Pancreatitis K85.90 Nicotine dependence F17.200 Transaminitis R74.01 Hyperglycemia R73.9 Hypokalemia E87.6 Alcohol use Z78.9
[2023-04-09] MEDS: sennosides-docusate Tablet 1 TAB PO (18:43)
[2023-04-09] MEDS: oxyCODONE 5 mg IR Tab/Cap PO ×2 (18:43→23:05)
[2023-04-09] MEDS: ketorolac 30 mg/mL INJ 15 MG IVP (19:55)
[2023-04-10] VITALS: BP 140/90; PULSE 89; RESP 17; TEMP 36.8; O2SAT 98
[2023-04-10] MEDS: D5-NS 0.45% + KCL 20 mEq 20 MEQ/1,000 ML BAG 100 MEQ IV (01:55)
[2023-04-10] MEDS: ketorolac 30 mg/mL INJ 15 MG IVP ×2 (01:55→09:46)
[2023-04-10 04:00] VITALS: BP 169/98; PULSE 99; RESP 19; TEMP 36.6; O2SAT 96
[2023-04-10 05:04] VITALS: PULSE 87
[2023-04-10 05:49] LABS: Basophils # 0.1 10^3/uL (0.0-0.1); Basophils % 0.6 %; Eosinophils # 0.3 10^3/uL (0.0-0.8); Eosinophils % 2.3 %; Hematocrit 37.8 % (37-53); Lymphocytes # 1.4 10^3/uL (0.8-4.8); Lymphocytes % 12.2 %; Mean Corpuscular HGB Conc 34.9 g/dL (30-55); Mean Corpuscular Volume 105.9 fl (82-101); Mean Platelet Volume 9.5 fL (7.4-10.4); Monocytes % 8.5 %; Neutrophils # 8.54 10^3/uL (1.8-7.7); Nucleated Red Blood Cells % 0 %; Platelet Count 254 10^3/cmm (157-399); Red Blood Count 3.57 10^6/uL (3.85-5.65); Red Cell Distribution Width 13.7 % (12.1-15.1); White Blood Count 11.54 10^3/uL (3.29-11.43)
[2023-04-10 06:11] LABS: Alanine Aminotransferase 63 U/L (0-41); Albumin Level 2.9 g/dL (3.5-5.2); Alkaline Phosphatase 134 U/L (40-130); Anion Gap 12.5 (5-19); Aspartate Amino Transferase 48 U/L (0-40); Blood Urea Nitrogen 7 mg/dL (6-20); C Reactive Protein 160.4 mg/L (0.0-4.9); Calcium 8.7 mg/dL (8.5-10.5); Carbon Dioxide 26 mmol/L (22-29); Chloride 102 mmol/L (98-107); Globulin 3.2 g/dL (1.3-4.6); Glomerular Filtration Rate 121.4 mL/min (90-130); Glucose 89 mg/dL (65-115); Magnesium 2.3 mg/dL (1.7-2.3); Osmolality Calculated 281 mOsm/kg (285-295); Phosphorus 3.9 mg/dL (2.5-4.5); Potassium 3.5 mmol/L (3.5-5.1); Sodium 137 mmol/L (136-145); Total Bilirubin 0.6 mg/dL (0.15-1.2); Total Protein 6.1 g/dL (6.6-8.7)
[2023-04-10 07:20] VITALS: BP 151/91; PULSE 94; RESP 18; TEMP 36.9; O2SAT 97
[2023-04-10 07:23] VITALS: RESP 16
[2023-04-10] MEDS: oxyCODONE 5 mg IR Tab/Cap PO (07:23)
[2023-04-10] MEDS: folic acid 1 mg Tablet PO (09:41)
[2023-04-10] MEDS: sennosides-docusate Tablet 1 TAB PO (09:41)
[2023-04-10] MEDS: multivitamin therapeutic Tablet 1 TAB PO (09:41)
[2023-04-10] MEDS: thiamine 100 mg Tablet PO (09:41)
[2023-04-10] MEDS: amlodipine 5 mg Tablet PO (09:42)
--- NOTE | 2023-04-10 10:35 | PM.DCS ---
Discharge Providers Date of Admission: 04/04/23 10:38 Date of Discharge: April 10, 2023 Attending Provider at Admission: Aaron Hagan MD Attending Provider at Discharge: Anthony Huynh MD Diagnoses at Discharge Discharge Diagnosis (1) Pancreatitis: Status: Resolved (2) Nicotine dependence: Status: Acute (3) Transaminitis: Status: Acute (4) Hyperglycemia: Status: Resolved (5) Hypokalemia: Status: Resolved (6) Alcohol use: Status: Resolved Reason for Visit Reason for Visit: abd pain Hospital Course Hospital Course Xander Mcmillan is a 47 year old male presenting to the emergency department with 1 day of abdominal pain. He thinks this started in the left flank or left upper quadrant but quickly spread to the rest of his abdomen. He has had some vomiting. He denies any blood in his emesis or blood in the stool. His last bowel movement was yesterday. He reports a prior history of pancreatitis, with similar pain for which she was hospitalized in [place]. He reports he does drink alcohol, but he does not think it is a big amount. When asked if he might withdrawal from alcohol, he is uncertain and thinks that he might. Some subjective fever. No shortness of breath or chest discomfort. No cough. Patient was admitted to [facility] for pancreatitis, alcohol abuse, alcohol withdrawal, managed with bowel rest, IV fluids, CIWA protocol overall patient's clinical condition slowly improved, due to persistent abdominal pain required a repeat CAT scan which showed diffuse pancreatitis with peripancreatic edema and inflammation, he was monitored as inpatient, advance diet gradually, was having bowel movements, passing gas, pain was minimal, abdominal distention was absent, good bowel sounds, no guarding, no rebound, rigidity on discharge, tolerating diet well, he was discharged on GI soft diet, advised to abstain from all alcohol, follow with primary care provider in 24 to 48 hours, hydrate well, if any recurrent abdominal pain to go to the emergency room, advised to quit smoking Physical Exam Const: COMMON NORMALS: no acute distress and patient oriented x3 Resp: COMMON NORMALS: normal respiratory effort, No retractions, No use of accessory muscles and clear to auscultation bilaterally AUSCULTATION: clear to auscultation bilaterally Cardio: COMMON NORMALS: regular rate, regular rhythm, S1 normal heart sound present and S2 normal heart sound present RATE: regular rate RHYTHM: regular rhythm HEART SOUNDS: S1 normal heart sound present and S2 normal heart sound present GI: COMMON NORMALS: Normal to inspection, nondistended, normoactive bowel sounds present and non-tender Extremity: COMMON NORMALS: no pedal edema Neuro: COMMON NORMALS: patient oriented x3 Psych: COMMON NORMALS: mental status grossly normal Discharge Data Studies Completed and Pending Completed Studies During Hospitalization Category Date Time Status CT abdomen pelvis w con* [id number] Stat Cat Scan 04/08/23 10:[address] kidney stone [id number] Stat Cat Scan 04/04/23 07:56 Completed XR abdomen 1V* [id number] Routine Exams 04/06/23 16:01 Completed XR chest 1V portable [id number] Stat Exams 04/04/23 07:56 Completed US gall bladder [id number] Stat Ultrasound 04/04/23 08:29 Completed Pending at discharge Category Date Time Status C Reactive Protein AM LABS Lab 04/11/23 04:00 Ordered Complete Blood Count w/Auto AM LABS Lab 04/11/23 04:00 Ordered Comprehensive Metabolic Panel AM LABS Lab 04/11/23 04:00 Ordered Lipase AM LABS Lab 04/10/23 17:31 Ordered Magnesium AM LABS Lab 04/11/23 04:00 Ordered Phosphorus AM LABS Lab 04/11/23 04:00 Ordered Radiology Impressions Abdomen X-Ray 04/06/23 16:01 IMPRESSION: Moderate osteoarthritis of the hips bilaterally. ADDENDUM: 04/06/23 1723 Nonspecific bowel gas pattern without bowel dilation to indicate obstruction or air-fluid levels to suggest an ileus. Abdomen/Pelvis CT 04/08/23 10:43 IMPRESSION: 1. Findings again suggestive of diffuse pancreatitis with peripancreatic edema/inflammation and small amount of intraperitoneal fluid with mild worsening from recent prior exam. No focal pseudocyst or abscess is seen. 2. Associated xzle-fz-hjifdvyx ileus. 3. Associated bilateral nilu-yozstqs-ydrn-right mild basilar pleural effusions with subjacent atelectasis. COMMENTS: Consistent with the [employer]'s Incidental Findings Committee white paper (J Am Kaitlin Radiol 2018): Any incidental renal lesion less than 1 cm or classified as too small to characterize, or any incidental cystic renal lesion characterized as simple-appearing, is likely benign. No follow-up imaging is recommended for these lesions per consensus recommendations based on imaging criteria. Laboratory Results WBC 11.54 10^3/uL (3.29-11.43) H 04/10/23 05:07 RBC 3.57 10^6/uL (3.85-5.65) L 04/10/23 05:07 Hgb 13.20 g/dL (11.27-16.99) 04/10/23 05:07 Hct 37.8 % (37-53) 04/10/23 05:07 MCV 105.9 fl (82-101) H 04/10/23 05:07 MCH 37.0 pg (27-33) H 04/10/23 05:07 MCHC 34.9 g/dL (30-55) 04/10/23 05:07 RDW 13.7 % (12.1-15.1) 04/10/23 05:07 Plt Count 254 10^3/cmm (157-399) 04/10/23 05:07 MPV 9.5 fL (7.4-10.4) 04/10/23 05:07 Neut % (Auto) 74.0 % 04/10/23 05:07 Lymph % (Auto) 12.2 % 04/10/23 05:07 [place] % (Auto) 8.5 % 04/10/23 05:07 Eos % (Auto) 2.3 % 04/10/23 05:07 Baso % (Auto) 0.6 % 04/10/23 05:07 Neut # (Auto) 8.54 10^3/uL (1.8-7.7) H 04/10/23 05:07 Lymph # (Auto) 1.4 10^3/uL (0.8-4.8) 04/10/23 05:07 [place] # (Auto) 1.0 10^3/uL (0.2-0.9) H 04/10/23 05:07 Eos # (Auto) 0.3 10^3/uL (0.0-0.8) 04/10/23 05:07 Baso # (Auto) 0.1 10^3/uL (0.0-0.1) 04/10/23 05:07 Nucleated RBC % (auto) 0 % 04/10/23 05:07 Nucleated RBCs # 0.0 /100WBC 04/10/23 05:07 Sodium 137 mmol/L (136-145) 04/10/23 05:07 Potassium 3.5 mmol/L (3.5-5.1) 04/10/23 05:07 Chloride 102 mmol/L (98-107) 04/10/23 05:07 Carbon Dioxide 26 mmol/L (22-29) 04/10/23 05:07 Anion Gap 12.5 (5-19) 04/10/23 05:07 BUN 7 mg/dL (6-20) 04/10/23 05:07 Creatinine 0.7 mg/dL (0.7-1.2) 04/10/23 05:07 GFR Calculation 121.4 mL/min (90-130) 04/10/23 05:07 Glucose 89 mg/dL (65-115) 04/10/23 05:07 Estimat Average Glucose 91 04/04/23 07:41 Hemoglobin A1c 4.8 % (4.0-6.0) 04/04/23 07:41 Calculated Osmolality 281 mOsm/kg (285-295) L 04/10/23 05:07 Calcium 8.7 mg/dL (8.5-10.5) 04/10/23 05:07 Phosphorus 3.9 mg/dL (2.5-4.5) 04/10/23 05:07 Magnesium 2.3 mg/dL (1.7-2.3) 04/10/23 05:07 Total Bilirubin 0.6 mg/dL (0.15-1.2) 04/10/23 05:07 AST 48 U/L (0-40) H 04/10/23 05:07 ALT 63 U/L (0-41) H 04/10/23 05:07 Alkaline Phosphatase 134 U/L (40-130) H 04/10/23 05:07 C-Reactive Protein 160.4 mg/L (0.0-4.9) H 04/10/23 05:07 Total Protein 6.1 g/dL (6.6-8.7) L 04/10/23 05:07 Albumin 2.9 g/dL (3.5-5.2) L 04/10/23 05:07 Globulin 3.2 g/dL (1.3-4.6) 04/10/23 05:07 Triglycerides 442 mg/dL (0-150) H 04/04/23 07:41 LDL Cholesterol Direct 106 mg/dL (0-100) H 04/04/23 07:41 Lipase 63 U/L (13-60) H 04/09/23 04:46 Procalcitonin 0.21 ng/mL (0-0.5) 04/08/23 06:22 Urine Color Yellow (Yellow) 04/07/23 21:30 Urine Appearance Clear (CLEAR) 04/07/23 21:30 Urine pH 8 (5-7) H 04/07/23 21:30 Ur Specific [place] 1.010 (1.005-1.030) 04/07/23 21:30 Urine Protein Trace (Negative) 04/07/23 21:30 Urine Glucose (UA) Norm (Normal) 04/07/23 21:30 Urine Ketones 1+ (Negative) H 04/07/23 21:30 Urine Blood 2+ (Negative) H 04/07/23 21:30 Urine Nitrate Negative (Negative) 04/07/23 21:30 Urine Bilirubin Neg (Negative) 04/07/23 21:30 Prot Sulfosalicylic Acd Negative (Negative) 04/07/23 21:30 Urine Urobilinogen Norm mg/dL (Negative) 04/07/23 21:30 Ur Leukocyte Esterase Negative (Negative) 04/07/23 21:30 Urine RBC 0-4 /hpf (0-2) H 04/07/23 21:30 Urine WBC 0-4 /hpf (0-5) H 04/07/23 21:30 Ur Squamous Epith Cells 0-4 /hpf (0-5) H 04/07/23 21:30 Ur Transition Epith Cell 0-4 /hpf 04/04/23 08:18 Amorphous Sediment Not Reportable 04/07/23 21:30 Urine Bacteria Trace /hpf (NONE) 04/07/23 21:30 Urine Mucus Trace /hpf 04/07/23 21:30 Ethyl Alcohol < 10 mg/dL (0-10) 04/04/23 07:41 Vitals Last Vital Signs Temp 98.4 F 04/10/23 07:20 Pulse 94 04/10/23 07:20 Resp 16 04/10/23 07:23 BP 151/91 04/10/23 07:20 Pulse Ox 97 04/10/23 07:20 O2 Del Method Room Air 04/10/23 07:20 Discharge Plan Discharge Patient Disposition: Home Condition: Stable Prescriptions: New amlodipine 5 mg Tablet 5 mg PO DAILY 30 Days Qty: 30 0RF nicotine 21 mg/24 hr Patch 24 Hour 1 patch transdermal DAILY 28 Days Qty: 28 0RF Vitamin B-1 (mononitrate) 100 mg Tablet 100 mg PO DAILY 30 Days Qty: 30 0RF Thera 400 mcg Tablet 1 tab PO DAILY 30 Days Qty: 30 0RF Discontinued acetaminophen [Tylenol Ex Str Rapid Release] 500 mg Tablet 1,000 mg PO Q6H PRN (Reason: Pain) Discharge Orders: Discharge Order (Routine); Ordered 04/10/23 Ordered By: Anthony Huynh Referrals: Crisis Stabilization [Other] (7 days/week 8am-6pm) [facility] [Outside] (? Follow up as a walk in at [facility], walk in hours are Saturday-Saturday from 7:30AM-3:00PM, first come, first seen. Once you do this assessment you will be referred for appropriate services.) Discharge Diet: As Directed Discharge Activity: Resume usual activity Patient Instructions: Oxycodone/Acetaminophen (By mouth), Amlodipine (By mouth), Pancreatitis (DC), Abuse of Alcohol (DC), Alcohol Dependence (DC), GI (Gastrointestinal) Soft Diet (DC), Opioid Safety Activity Restrictions/Additional Instructions: -please abstain from alcohol Discharge Attestations Time Spent in Discharge Care*: greater than 30 min Quality Metrics Clinical Quality Measures [ No reported AMI, CVA or VTE this stay] Coding Level of Care Code 78205 Total time (in minutes) for Discharge: 45 Diagnoses Pancreatitis K85.90 Nicotine dependence F17.200 Transaminitis R74.01 Hyperglycemia R73.9 Hypokalemia E87.6 Alcohol use Z78.9
--- NOTE | 2023-04-10 12:54 | PC.NURSE ---
Fentanyl Patch Removal: Fentanyl patch removed and disposed of in proper disposal container.
== END 2023-04-10 12:55 | disposition home or self-care (01) | DRG 439 ==
LOC: ER 07:54 → ER IP 11:25 → MEDSURG 14:59
PROVIDERS: Student in an Organized Health Care Education/Training Program; Admitting Provider Internal Medicine; Emergency Provider Family Medicine; Visit Provider Family Medicine
DX: K85.20 Alcohol induced acute pancreatitis without necrosis or infection (principal); E87.1 Hypo-osmolality and hyponatremia; F10.139 Alcohol abuse with withdrawal, unspecified; K56.7 Ileus, unspecified; F17.210 Nicotine dependence, cigarettes, uncomplicated; R73.9 Hyperglycemia, unspecified
CPT/HCPCS: 36415; 71045; 74018; 74176; 74177; 76705; 80053; 80307; 81001; 83036; 83690; 83721; 83735; 84100; 84145; 84478; 85025; 86140; 93005; 96365; 96372; 96375; 96376; 99285; J1170; J1650; J1885; J2060; J2270; J2405; J3411; J3475; J3480; J7030; Q9967

== ENCOUNTER 2023-10-28 08:48 | Inpatient (IN) | payer BC, SELFPAY ==
[2023-10-28] VITALS (25 sets, daily range): BP systolic 137–191; BP diastolic 89–121; PULSE 61–101; RESP 15–26; TEMP 36.4–36.9; O2SAT 94–100; BMI 31.1
--- NOTE | 2023-10-28 09:07 | ECG_ITS ---
[facility] Test Date: 2023-10-28 Pat Name: Xander Mcmillan Department: Room: Gender: Male [employer]: : 1975 Requested By: Ashley Mccall Order Number: [id number] Qian MD: Chucky Burden M.D. Measurements Intervals [place] Rate: 59 P: 33 AR: 137 QRS: 53 QRSD: 78 T: 15 QT: 378 QTc: 376 Interpretive Statements SINUS BRADYCARDIA Compared to ECG 04/04/2023 08:05:45 Sinus rhythm no longer present T-wave abnormality no longer present Electronically Signed On 10-28-2023 12:01:47 CDT by Chucky Burden M.D. [email or web address]
--- NOTE | 2023-10-28 09:07 | XR_ITS ---
WS: [id number] Portable AP upright chest, 10/28/2023 Clinical Data: chest pain Comparison: Portable chest, 04/04/2023 Findings: No nodules, masses or effusions are seen. The heart is normal. The pulmonary vascularity is not increased. No pneumonia or pneumothorax is seen. There is an old healed right clavicular fractur e. There are monitor leads on the chest wall. XR/XR chest 1V portable [id number] Impression: Negative chest.
--- NOTE | 2023-10-28 09:08 | ED_ITS ---
Documented by User: CAROL Rodriguez 10/28/23 11:44 HPI - Abdominal Pain 2 General: Chief Complaint: Abdominal Pain Stated Complaint: n/v, left side pain Time Seen by Provider: 10/28/23 08:53 Source: patient Mode of arrival: ambulatory Limitations: no limitations History of Present Illness: Patient is a 48-year-old male presents to ED today with a complaint of left- sided abdominal pain that began around 4 AM this morning. He has also had multiple episodes of nausea and vomiting. Patient feels like pain radiates into his chest. He does not complain of shortness of breath or difficulty breathing. He does have a history of pancreatitis but states this pain currently is more severe than his last episode. He does admit to alcohol use but is somewhat hesitant to quantify. He states last time I had pancreatitis they tried to tell me it was related to alcohol use but I know it wasn't . PMH significant for hypertension. He states he does take blood pressure medications but does not know the name of them. He states he took them this morning but probably vomited them up . He is hypertensive upon arrival. Denies hematemesis. He has not had any diarrhea or bloody stools. No fevers. MD elicited complaint: abdominal pain Pertinent past history: other (pancreatitis) Onset (ago): hour(s) Pain Consistency: constant Location: LUQ Severity: severe Quality: sharp Radiation: none Migration to: no migration Exacerbating factors: nothing Relieving factors: nothing Associated Symptoms: Reports nausea and vomiting; Denies chills, diarrhea, dysuria, fever(s), heartburn, hematochezia, hematemesis, melena and syncope Review of Systems 2 Const: Denies: fever(s), chills, body aches, fatigue or malaise Eyes: Denies: change in vision or blurry vision Card: Reports: chest pain; Denies: palpitations, irregular heart rhythm, edema, swelling of feet/ankles, lightheadedness, syncope, pre-syncope, dyspnea on exertion, orthopnea, leg pain with exertion or acrocyanosis Resp: Denies: dyspnea, productive cough or pain on inspiration GI: Reports: abdominal pain, nausea and vomiting; Denies: hematemesis, heartburn, diarrhea, hematochezia or melena : Denies: flank pain, difficulty urinating, dysuria, urinary frequency or urinary urgency Musc: Denies: neck pain, back pain, extremity pain, extremity swelling or joint pain Skin/Breast: Denies: rash Neuro: Denies: headache(s), numbness in extremities, weakness in extremities or sensory changes PFSH ED 2 PFSH: Medical History Pancreatitis Surgical History History of ear surgery Family History Other Cancer Social History Smoking and tobacco/nicotine status: current every day tobacco/nicotine user Alcohol intake: current Substance/Drug Use: never Physical Exam 2 Const: COMMON NORMALS: no acute distress, patient oriented x3, no limitations, alert and well nourished GENERAL APPEARANCE: cooperative and in distress (appears uncomfortable secondary to pain) NUTRITIONAL APPEARANCE: overweight ORIENTATION/CONSCIOUSNESS: Yes awake, Yes oriented to person, Yes oriented to place and Yes oriented to time OTHER: hypertensive-states he took BP meds this AM but probably vomited them up HENMT: COMMON NORMALS: normocephalic and atraumatic HEAD & SCALP: normal to inspection, normocephalic and atraumatic Eye: COMMON NORMALS: no scleral icterus Neck/C-Spine: COMMON NORMALS: full ROM, no lymphadenopathy, supple and no meningeal signs Chest: COMMONS NORMALS: normal inspection of the chest and normal palpation of entire chest wall Resp: COMMON NORMALS: normal respiratory effort and clear to auscultation bilaterally AUSCULTATION: clear to auscultation bilaterally Cardio: COMMON NORMALS: regular rate and regular rhythm RATE: regular rate RHYTHM: regular rhythm GI: COMMON NORMALS: Normal to inspection, nondistended, normoactive bowel sounds present, Soft to palpation and no masses INSPECTION: Yes normal to inspection AUSCULTATION: Yes normoactive bowel sounds PALPATION: Yes Soft to palpation, Yes Tenderness to palpation present (GI) (throughout abdomen but max tenderness to LUQ), Yes Guarding due to palpation present (GI) and No Rigid due to palpation : COMMON NORMALS: Yes no CVA tenderness BLADDER/KIDNEY EXAM: Yes no CVA tenderness Back/Pelvis: COMMON NORMALS: no CVA tenderness and thoracic and lumbar spine normal to inspection Extremity: COMMON NORMALS: normal to inspection, full ROM, capillary refill normal, no joint enlargement, no clubbing, cyanosis or edema, no calf tenderness and no pedal edema GENERAL: Yes normal exam except as noted Neuro: ELSY COMA SCALE: document GCS findings Roy coma scale eye opening: Spontaneous Roy coma scale verbal response: Orientated Roy coma scale motor response: Obey commands Roy coma scale total score: 15 COMMON NORMALS: patient oriented x3, moves all extremities, no focal motor deficits and no sensory deficits noted SENSORIUM/ORIENTATION: Yes alert, Yes oriented to person, Yes oriented to place and Yes oriented to time MENINGEAL SIGNS: Yes no meningeal signs Skin: COMMON NORMALS: no rashes or lesions noted GENERAL SKIN EXAM: no rashes or lesions noted Course 2 Consultations: Consultation #1: Dr. Hagan-accepts hospitalization Vital Signs: Vital signs: Vital Signs Temperature 97.9 F 10/28/23 16:00 Pulse Rate 67 10/28/23 16:00 Respiratory Rate 20 H 10/28/23 17:36 Blood Pressure 165/95 10/28/23 16:00 Pulse Oximetry 96 10/28/23 17:36 Oxygen Delivery Me thod Room Air 10/28/23 16:00 MDM - Abdominal Pain Medical Decision Making Patient will be an admit to hospital for treatment of pancreatitis. Small area of possible necrosis-will start on antibiotics. Medical Records I reviewed the patient's medical records. Lab Data I reviewed the patient's lab results. 10/28/23 09:44 10/28/23 09:44 Labs/Radiology: Radiology Impressions Chest X-Ray 10/28/23 09:07 Impression: Negative chest. Abdomen/Pelvis CT 10/28/23 09:09 IMPRESSION: 1. Findings consistent with acute recurrent pancreatitis with questionable developing pancreatic necrosis involving body/tail the pancreas for which continued follow-up advised. 2. Findings inconclusive for small noncalcified gallstones. 3. Mild fatty infiltration of the liver. Laboratory Results WBC 14.39 10^3/uL (3.29-11.43) H 10/28/23 09:44 RBC 5.10 10^6/uL (3.85-5.65) 10/28/23 09:44 Hgb 18.50 g/dL (11.27-16.99) H 10/28/23 09:44 Hct 51.5 % (37-53) 10/28/23 09:44 MCV 101.0 fl (82-101) 10/28/23 09:44 MCH 36.3 pg (27-33) H 10/28/23 09:44 MCHC 35.9 g/dL (30-55) 10/28/23 09:44 RDW 13.2 % (12.1-15.1) 10/28/23 09:44 Plt Count 208 10^3/cmm (157-399) 10/28/23 09:44 MPV 9.8 fL (7.4-10.4) 10/28/23 09:44 Neut % (Auto) 88.7 % 10/28/23 09:44 Lymph % (Auto) 6.9 % 10/28/23 09:44 [place] % (Auto) 3.8 % 10/28/23 09:44 Eos % (Auto) 0.1 % 10/28/23 09:44 Baso % (Auto) 0.1 % 10/28/23 09:44 Neut # (Auto) 12.75 10^3/uL (1.8-7.7) H 10/28/23 09:44 Lymph # (Auto) 1.0 10^3/uL (0.8-4.8) 10/28/23 09:44 [place] # (Auto) 0.6 10^3/uL (0.2-0.9) 10/28/23 09:44 Eos # (Auto) 0.0 10^3/uL (0.0-0.8) 10/28/23 09:44 Baso # (Auto) 0.0 10^3/uL (0.0-0.1) 10/28/23 09:44 Nucleated RBC % (auto) 0 % 10/28/23 09:44 Nucleated RBCs # 0.0 /100WBC 10/28/23 09:44 Sodium 139 mmol/L (136-145) 10/28/23 09:44 Potassium 3.9 mmol/L (3.5-5.1) 10/28/23 09:44 Chloride 104 mmol/L (98-107) 10/28/23 09:44 Carbon Dioxide 20 mmol/L (22-29) L 10/28/23 09:44 Anion Gap 18.9 (5-19) 10/28/23 09:44 BUN 12 mg/dL (6-20) 10/28/23 09:44 Creatinine 0.8 mg/dL (0.7-1.2) 10/28/23 09:44 GFR Calculation 103.6 mL/min (90-130) 10/28/23 09:44 Glucose 110 mg/dL (65-115) 10/28/23 09:44 Calculated Osmolality 288 mOsm/kg (285-295) 10/28/23 09:44 Calcium 9.6 mg/dL (8.5-10.5) 10/28/23 09:44 Magnesium 2.1 mg/dL (1.7-2.3) 10/28/23 09:44 Total Bilirubin 1.0 mg/dL (0.15-1.2) 10/28/23 09:44 AST 18 U/L (0-40) 10/28/23 09:44 ALT 23 U/L (0-41) 10/28/23 09:44 Alkaline Phosphatase 79 U/L (40-130) 10/28/23 09:44 Troponin T Baseline < 6 ng/L (0-15) 10/28/23 09:44 Troponin T 120 Minute 6.11 ng/L (0-15) 10/28/23 12:01 Delta Troponin T 0.00878 ABS# (0-10) 10/28/23 12:01 Total Protein 7.7 g/dL (6.6-8.7) 10/28/23 09:44 Albumin 4.8 g/dL (3.5-5.2) 10/28/23 09:44 Globulin 2.9 g/dL (1.3-4.6) 10/28/23 09:44 Triglycerides 542 mg/dL (0-150) H 10/28/23 09:44 LDL Cholesterol Direct 108 mg/dL (0-100) H 10/28/23 09:44 Lipase 1075 U/L (13-60) H 10/28/23 09:44 Urine Color Yellow (Yellow) 10/28/23 11:07 Urine Appearance Clear (CLEAR) 10/28/23 11:07 Urine pH 7 (5-7) 10/28/23 11:07 Ur Specific [place] 1.010 (1.005-1.030) 10/28/23 11:07 Urine Protein Neg (Negative) 10/28/23 11:07 Urine Glucose (UA) Norm (Normal) 10/28/23 11:07 Urine Ketones 2+ (Negative) H 10/28/23 11:07 Urine Blood Neg (Negative) 10/28/23 11:07 Urine Nitrate Negative (Negative) 10/28/23 11:07 Urine Bilirubin Neg (Negative) 10/28/23 11:07 Urine Urobilinogen Neg mg/dL (Negative) 10/28/23 11:07 Ur Leukocyte Esterase Negative (Negative) 10/28/23 11:07 Urine Opiates Screen Positive ng/mL (Negative) H 10/28/23 11:07 Ur Barbiturates Screen Negative ng/mL (Negative) 10/28/23 11:07 Ur Phencyclidine Scrn Negative ng/mL (Negative) 10/28/23 11:07 Ur Amphetamines Screen Negative ng/mL (Negative) 10/28/23 11:07 U Benzodiazepines Scrn Negative ng/mL (Negative) 10/28/23 11:07 Urine Cocaine Screen Negative ng/mL (Negative) 10/28/23 11:07 U Marijuana (THC) Screen Negative ng/mL (Negative) 10/28/23 11:07 Ethyl Alcohol < 10 mg/dL (0-10) 10/28/23 09:44 All radiology interpretation(s) finalized by discharge Discharge Plan Discharge Patient Disposition: Admitted As Inpatient Admit Provider: Aaron Hagan Clinical Impression: Pancreatitis Condition: Stable Coding Level of Care Code ED Radius Grinder for Chg Fwd Documented by User: Hubert Samuel DO 10/28/23 18:48 HPI - Abdominal Pain 2 General: Chief Complaint: Abdominal Pain Stated Complaint: n/v, left side pain Time Seen by Provider: 10/28/23 08:53 PFSH ED 2 PFSH: Medical History Pancreatitis Surgical History History of ear surgery Family History Other Cancer Social History Smoking and tobacco/nicotine status: current every day tobacco/nicotine user Alcohol intake: current Substance/Drug Use: never Physical Exam 2 Neuro: ELSY COMA SCALE: document GCS findings Elsy coma scale total score: 15 Course 2 Vital Signs: Vital signs: Vital Signs Temperature 97.9 F 10/28/23 16:00 Pulse Rate 67 10/28/23 16:00 Respiratory Rate 20 H 10/28/23 17:36 Blood Pressure 165/95 10/28/23 16:00 Pulse Oximetry 96 10/28/23 17:36 Oxygen Delivery Me thod Room Air 10/28/23 16:00 MDM - Abdominal Pain Medical Decision Making Patient will be an admit to hospital for treatment of pancreatitis. Small area of possible necrosis-will start on antibiotics. Chart reviewed and patient discussed with midlevel. Agree with assessment and plan. Lab Data 10/28/23 09:44 10/28/23 09:44 Labs/Radiology: Radiology Impressions Chest X-Ray 10/28/23 09:07 Impression: Negative chest. Abdomen/Pelvis CT 10/28/23 09:09 IMPRESSION: 1. Findings consistent with acute recurrent pancreatitis with questionable developing pancreatic necrosis involving body/tail the pancreas for which continued follow-up advised. 2. Findings inconclusive for small noncalcified gallstones. 3. Mild fatty infiltration of the liver. Laboratory Results WBC 14.39 10^3/uL (3.29-11.43) H 10/28/23 09:44 RBC 5.10 10^6/uL (3.85-5.65) 10/28/23 09:44 Hgb 18.50 g/dL (11.27-16.99) H 10/28/23 09:44 Hct 51.5 % (37-53) 10/28/23 09:44 MCV 101.0 fl (82-101) 10/28/23 09:44 MCH 36.3 pg (27-33) H 10/28/23 09:44 MCHC 35.9 g/dL (30-55) 10/28/23 09:44 RDW 13.2 % (12.1-15.1) 10/28/23 09:44 Plt Count 208 10^3/cmm (157-399) 10/28/23 09:44 MPV 9.8 fL (7.4-10.4) 10/28/23 09:44 Neut % (Auto) 88.7 % 10/28/23 09:44 Lymph % (Auto) 6.9 % 10/28/23 09:44 [place] % (Auto) 3.8 % 10/28/23 09:44 Eos % (Auto) 0.1 % 10/28/23 09:44 Baso % (Auto) 0.1 % 10/28/23 09:44 Neut # (Auto) 12.75 10^3/uL (1.8-7.7) H 10/28/23 09:44 Lymph # (Auto) 1.0 10^3/uL (0.8-4.8) 10/28/23 09:44 [place] # (Auto) 0.6 10^3/uL (0.2-0.9) 10/28/23 09:44 Eos # (Auto) 0.0 10^3/uL (0.0-0.8) 10/28/23 09:44 Baso # (Auto) 0.0 10^3/uL (0.0-0.1) 10/28/23 09:44 Nucleated RBC % (auto) 0 % 10/28/23 09:44 Nucleated RBCs # 0.0 /100WBC 10/28/23 09:44 Sodium 139 mmol/L (136-145) 10/28/23 09:44 Potassium 3.9 mmol/L (3.5-5.1) 10/28/23 09:44 Chloride 104 mmol/L (98-107) 10/28/23 09:44 Carbon Dioxide 20 mmol/L (22-29) L 10/28/23 09:44 Anion Gap 18.9 (5-19) 10/28/23 09:44 BUN 12 mg/dL (6-20) 10/28/23 09:44 Creatinine 0.8 mg/dL (0.7-1.2) 10/28/23 09:44 GFR Calculation 103.6 mL/min (90-130) 10/28/23 09:44 Glucose 110 mg/dL (65-115) 10/28/23 09:44 Calculated Osmolality 288 mOsm/kg (285-295) 10/28/23 09:44 Calcium 9.6 mg/dL (8.5-10.5) 10/28/23 09:44 Magnesium 2.1 mg/dL (1.7-2.3) 10/28/23 09:44 Total Bilirubin 1.0 mg/dL (0.15-1.2) 10/28/23 09:44 AST 18 U/L (0-40) 10/28/23 09:44 ALT 23 U/L (0-41) 10/28/23 09:44 Alkaline Phosphatase 79 U/L (40-130) 10/28/23 09:44 Troponin T Baseline < 6 ng/L (0-15) 10/28/23 09:44 Troponin T 120 Minute 6.11 ng/L (0-15) 10/28/23 12:01 Delta Troponin T 0.03060 ABS# (0-10) 10/28/23 12:01 Total Protein 7.7 g/dL (6.6-8.7) 10/28/23 09:44 Albumin 4.8 g/dL (3.5-5.2) 10/28/23 09:44 Globulin 2.9 g/dL (1.3-4.6) 10/28/23 09:44 Triglycerides 542 mg/dL (0-150) H 10/28/23 09:44 LDL Cholesterol Direct 108 mg/dL (0-100) H 10/28/23 09:44 Lipase 1075 U/L (13-60) H 10/28/23 09:44 Urine Color Yellow (Yellow) 10/28/23 11:07 Urine Appearance Clear (CLEAR) 10/28/23 11:07 Urine pH 7 (5-7) 10/28/23 11:07 Ur Specific [place] 1.010 (1.005-1.030) 10/28/23 11:07 Urine Protein Neg (Negative) 10/28/23 11:07 Urine Glucose (UA) Norm (Normal) 10/28/23 11:07 Urine Ketones 2+ (Negative) H 10/28/23 11:07 Urine Blood Neg (Negative) 10/28/23 11:07 Urine Nitrate Negative (Negative) 10/28/23 11:07 Urine Bilirubin Neg (Negative) 10/28/23 11:07 Urine Urobilinogen Neg mg/dL (Negative) 10/28/23 11:07 Ur Leukocyte Esterase Negative (Negative) 10/28/23 11:07 Urine Opiates Screen Positive ng/mL (Negative) H 10/28/23 11:07 Ur Barbiturates Screen Negative ng/mL (Negative) 10/28/23 11:07 Ur Phencyclidine Scrn Negative ng/mL (Negative) 10/28/23 11:07 Ur Amphetamines Screen Negative ng/mL (Negative) 10/28/23 11:07 U Benzodiazepines Scrn Negative ng/mL (Negative) 10/28/23 11:07 Urine Cocaine Screen Negative ng/mL (Negative) 10/28/23 11:07 U Marijuana (THC) Screen Negative ng/mL (Negative) 10/28/23 11:07 Ethyl Alcohol < 10 mg/dL (0-10) 10/28/23 09:44 Discharge Plan Discharge Patient Disposition: Admitted As Inpatient Admit Provider: Aaron Hagan Clinical Impression: Pancreatitis Condition: Stable Coding Level of Care Code ED Radius Grinder for Janneth Leone
--- NOTE | 2023-10-28 09:09 | CTR_ITS ---
PROCEDURE INFORMATION: Exam: CT Abdomen And Pelvis With Contrast Exam date and time: 10/28/2023 10:29 AM Age: 48 years old Clinical indication: Abdominal pain; Localized; Upper; Additional info: Abdominal pain, n/v, HX pancreatitis TECHNIQUE: Imaging protocol: Computed tomography of the abdomen and pelvis with contrast. Radiation optimization: All CT scans at this facility use at least one of these dose optimization techniques: automated exposure control; mA and/or kV adjustment per patient size (includes targeted exams where dose is matched to clinical indication); or iterative reconstruction. Contrast material: OMNI 350; Contrast volume: 100 ml; Contrast route: INTRAVENOUS (IV); COMPARISON: CT abdomen pelvis w con* [id number] 04/08/2023 1:20 PM RADIATION DOSE METRICS: Total DLP (mGy-cm): 958.67 FINDINGS: Lungs: There are minor atelectatic changes at the lung bases. Liver: Mild fatty infiltration throughout the liver. No masses or enlargement detected. Gallbladder and biliary ducts: Few small noncalcified nodule depended nodular densities within the gallbladder that may represent noncalcified gallstones.. Gallbladder is otherwise unremarkable. Bile ducts are not dilated. Pancreas: Redemonstration of edematous pancreas with peripancreatic inflammatory changes/fluid extending into the lesser sac and left anterior pararenal space consistent with acute pancreatitis. The distal body and tail the pancreas demonstrates relative decreased enhancement with density readings not needing threshold for pancreatic necrosis. 1 cm cystic area within the pancreatic head as well as a 2nd small shaped cystic area situated below the body of the pancreas that may represent a small developing pseudocysts or walled-off pancreatic necrosis. Spleen: Normal. No splenomegaly. Adrenal glands: Normal. No mass. Kidneys and ureters: See Intraperitoneal space finding. Stomach and bowel: Unremarkable. No obstruction. No mucosal thickening. Appendix: No evidence of appendicitis. Intraperitoneal space: Unremarkable. No free air. No significant fluid collection. Vasculature: Unremarkable. No abdominal aortic aneurysm. Lymph nodes: Unremarkable. No enlarged lymph nodes. Urinary bladder: Unremarkable as visualized. Reproductive: Unremarkable as visualized. Bones/joints: Unremarkable. No acute fracture. Soft tissues: Small fat containing inguinal hernias, stable. CT/CT abdomen pelvis w con* [id number] IMPRESSION: 1. Findings consistent with acute recurrent pancreatitis with questionable developing pancreatic necrosis involving body/tail the pancreas for which continued follow-up advised. 2. Findings inconclusive for small noncalcified gallstones. 3. Mild fatty infiltration of the liver.
--- NOTE | 2023-10-28 09:31 | ECG_ITS ---
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 Measurements Intervals [place] Rate: 61 P: 90 GA: 131 QRS: 139 QRSD: 80 T: 192 QT: 383 QTc: 387 Interpretive Statements SINUS RHYTHM POSSIBLE RIGHT VENTRICULAR HYPERTROPHY [SOME/ALL OF: PROMINENT R IN V1, LATE TRANSITION, RAD, DORITA, SSS] MODERATE T-WAVE ABNORMALITY, CONSIDER INFERIOR ISCHEMIA [-0.1+ mV T-WAVE IN II/aVF] Compared to ECG 10/28/2023 08:58:18 Atrial abnormality now present T-wave abnormality now present Possible ischemia now present Sinus bradycardia no longer present Electronically Signed On 10-28-2023 12:05:54 CDT by Chucky Burden M.D. [id number]
[2023-10-28] MEDS: sodium chloride 0.9% 1,000 ML 999 ML IV (09:45)
[2023-10-28] MEDS: ondansetron 2 mg/ML SDV 2 mL 4 MG IVP ×2 (09:46→21:34)
[2023-10-28] MEDS: morphine 4 mg/mL SDV 1 mL IVP ×2 (09:46→10:58)
[2023-10-28] MEDS: hyDRALAzine 20 mg/mL INJ 1 mL 10 MG IVP (09:46)
[2023-10-28 09:53] LABS: Basophils % 0.1 %; Eosinophils % 0.1 %; Hematocrit 51.5 % (37-53); Lymphocytes % 6.9 %; Mean Corpuscular HGB Conc 35.9 g/dL (30-55); Mean Corpuscular Hemoglobin 36.3 pg (27-33); Mean Platelet Volume 9.8 fL (7.4-10.4); Monocytes # 0.6 10^3/uL (0.2-0.9); Monocytes % 3.8 %; Neutrophils # 12.75 10^3/uL (1.8-7.7); Neutrophils % 88.7 %; Nucleated Red Blood Cells % 0 %; Platelet Count 208 10^3/cmm (157-399); Red Cell Distribution Width 13.2 % (12.1-15.1); White Blood Count 14.39 10^3/uL (3.29-11.43)
[2023-10-28] MEDS: HYDROmorphone 1 mg/mL INJ 1 mL IVP ×5 (09:59→22:37)
[2023-10-28 10:16] LABS: Troponin(5th) Baseline < 6 ng/L (0-15)
[2023-10-28 10:23] LABS: Alanine Aminotransferase 23 U/L (0-41); Albumin Level 4.8 g/dL (3.5-5.2); Alkaline Phosphatase 79 U/L (40-130); Anion Gap 18.9 (5-19); Aspartate Amino Transferase 18 U/L (0-40); Blood Urea Nitrogen 12 mg/dL (6-20); Calcium 9.6 mg/dL (8.5-10.5); Carbon Dioxide 20 mmol/L (22-29); Chloride 104 mmol/L (98-107); Creatinine Clr Calc Pharmacy 142.5522; Globulin 2.9 g/dL (1.3-4.6); Glomerular Filtration Rate 103.6 mL/min (90-130); Glucose 110 mg/dL (65-115); Osmolality Calculated 288 mOsm/kg (285-295); Potassium 3.9 mmol/L (3.5-5.1); Sodium 139 mmol/L (136-145); Total Protein 7.7 g/dL (6.6-8.7)
[2023-10-28 10:25] LABS: Alcohol Level < 10 mg/dL (0-10)
[2023-10-28 10:44] LABS: Lipase 1075 U/L (13-60)
[2023-10-28] MEDS: iohexol 350 mg/mL 500 mL Btl (per mL) IV (10:44)
[2023-10-28] MEDS: enalaprilat 2.5 mg/2 mL SDV 0.625 MG IVP (11:04)
[2023-10-28 11:12] LABS: Add Urine Microscopic? NO; Charge for UA Resulting for Rev
[2023-10-28 11:16] LABS: Bilirubin Urine Neg (Negative); Blood Urine Neg (Negative); Glucose Urine UA Norm (Normal); Ketones Urine 2+ (Negative); Leukocyte Esterase Urine Negative (Negative); Nitrate Urine Negative (Negative); Protein Urine Neg (Negative); Urine Appearance Clear (CLEAR); Urine Color Yellow (Yellow); Urobilinogen Urine Neg (Negative); pH Urine 7 (5-7)
[2023-10-28] MEDS: piperacillin-tazobactam 3.375 GM in sodium chloride 0.9% (plus) 50 ML IV (11:33)
[2023-10-28] MEDS: pantoprazole 40 mg SDV IVP ×2 (11:35→21:14)
[2023-10-28 11:49] LABS: Triglycerides 542 mg/dL (0-150)
[2023-10-28 11:52] LABS: Magnesium 2.1 mg/dL (1.7-2.3)
[2023-10-28 12:12] LABS: LDL Cholesterol Direct 108 mg/dL (0-100)
--- NOTE | 2023-10-28 12:21 | P.HP_ITS ---
Providers/Chief Complaint 2 Admitting Physician: Aaron Hagan MD Chief Complaint: n/v, left side pain, chest pain History of Present Illness Xander Mcmillan is a 48 year old male presenting to the emergency department with increasing abdominal pain in the epigastric left upper quadrant radiating to his back. He reports it started this morning early. He threw up around 12 times or so. No blood in emesis or blood in his stool. [place] hot and chills but no recorded temperatures. Reports he did have some beer over the October 23 weekend. Other than that he reports he drinks every third day or so. He has past history of pancreatitis that was significant in the past. Last hospital stay for pancreatitis March 2023. No diarrhea. Denies any previous alcohol withdrawal. Review of Systems 2 General: Reports: 10 or more systems reviewed and unremarkable except in HPI and below Card: Denies: chest pain Resp: Denies: dyspnea GI: Reports: abdominal pain, nausea and vomiting; Denies: hematochezia or melena Medications/Allergies Allergies Allergy/AdvReac Type Severity Reaction Status Date / Time No Known Allergies Allergy Verified 10/28/23 09:03 PFSH Acute 2 PFSH: Medical History Pancreatitis Surgical History History of ear surgery Family History Other Cancer Social History Smoking and tobacco/nicotine status: current every day tobacco/nicotine user Alcohol intake: current Substance/Drug Use: never Vitals/I&O/Wt Last Vital Signs Temp 97.6 F 10/28/23 08:52 Pulse 70 10/28/23 12:05 Resp 15 10/28/23 12:05 BP 159/98 10/28/23 12:05 Pulse Ox 99 10/28/23 12:05 O2 Del Method Room Air 10/28/23 08:52 Weight last 48 hrs Weight 104.326 kg Physical Exam 2 Narrative: General exam is a white male, in apparent abdominal pain and nauseated HEENT: Oropharynx clear. Atraumatic normocephalic. Scar is noted on forehead. Neck is supple no lymphadenopathy thyromegaly Cardiovascular regular rate and rhythm without murmur Lungs clear no wheezing or crackles Abdomen is soft but significantly tender. Reduced bowel sounds are noted. No obvious organomegaly exams deferred Extremities no cyanosis clubbing or edema, cap refill brisk Skin no rash Neuro no obvious focal deficits. Data 10/28/23 09:44 10/28/23 09:44 Other Labs: Liver function tests are normal Triglyceride level 542 Lipase 1075 Urinalysis negative Urine drug screen was obtained which is pending. Alcohol level less than 10. Calcium, magnesium, albumin normal Troponin less than 6 CT abdomen pelvis which I reviewed demonstrates pancreatitis, question pancreatic necrosis in the tail. No dilated ducts. Chest x-ray which I reviewed demonstrates no infiltrate EKG which I reviewed Demonstrates sinus rhythm, normal axis, no acute changes A&P Assessment and plan (1) Pancreatitis: Patient presents with acute pancreatitis. He has past history of hospitalization for acute pancreatitis in March. There is no evidence of duct dilation. Triglyceride level is not high enough to think this is the cause. Most likely alcohol is the cause. He is not on any external medications. Hydration, pain control Note currently has pancreatitis may be complicated as there is concern of questionable necrosis mainly in the tail and perhaps an area of the body. Secondary concern for pancreatic necrosis will continue IV antibiotics in the form of meropenem Close follow-up of electrolytes Discussed with him avoiding all alcohol. Clear liquid diet, advance as tolerated A blood culture was obtained Qualifiers: Acute pancreatitis complication: infected necrosis Chronicity: acute P ancreatitis type: unspecified pancreatitis type Qualified Code(s): K85.92 - Acute pancreatitis with infected necrosis, unspecified Plan Nicotine dependency. Nicotine patch Full code DVT prophylaxis with Lovenox Attestations 2 Medical Necessity Statement*: Will require greater than 2 midnight stay secondary to severe pain with pancreatitis and associated complication of likely necrosis. Empiric antibiotics are going to be initiated and close follow-up of white blood cell count and electrolytes. Diagnoses Pancreatitis K85.92 Acute pancreatitis complication: infected necrosis Chronicity: acute Pancreatitis type: unspecified pancreatitis type Time Spent (min) 46
[2023-10-28 12:29] LABS: Amphetamines Screen Urine Negative (Negative); Barbiturates Screen Urine Negative (Negative); Benzodiazepines Screen Urine Negative (Negative); Cocaine Screen Urine Negative (Negative); Opiate Screen Urine Positive (Negative); PCP Screen Urine Negative (Negative); THC Screen Urine Negative (Negative)
[2023-10-28 12:30] LABS: Troponin 5 2HR 6.11 ng/L (0-15); Troponin 5 2HR Delta 0.11001 ABS# (0-10)
[2023-10-28] MEDS: sodium chloride 0.9% 1,000 ML 150 ML IV ×2 (14:01→21:13)
[2023-10-28] MEDS: enoxaparin 40 mg/0.4 mL Syringe SUBCUT (14:05)
--- NOTE | 2023-10-28 14:37 | ECG_ITS ---
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 Measurements Intervals [place] Rate: 68 P: 58 NE: 145 QRS: 48 QRSD: 86 T: -9 QT: 362 QTc: 386 Interpretive Statements SINUS RHYTHM NONSPECIFIC T-WAVE ABNORMALITY Compared to ECG 10/28/2023 09:31:15 Atrial abnormality no longer present Possible ischemia no longer present T-wave abnormality still present Electronically Signed On 10-28-2023 15:20:57 CDT by Chucky Burden M.D. [id number]
[2023-10-28] MEDS: meropenem 1,000 mg SDV 1000 MG IVP ×2 (16:26→21:14)
[2023-10-28] MEDS: water for injection-sterile 20 ML 200 ML (16:26)
[2023-10-28] MEDS: oxyCODONE-APAP 5-325 mg Tablet 1 TAB PO ×2 (17:36→21:34)
[2023-10-28 18:29] LABS: Troponin 5 6HR 6.74 ng/L (0-15); Troponin 5 6HR Delta 0.74001 ng/L (0-12)
--- NOTE | 2023-10-28 20:52 | PC.NURSE ---
Patient states that he is supposed to received Oxycodone every 2 hours. Patient educated that it is ordered to be given every 4 hours as needed. Patient states well, that's not right, that's not what that doctor told me. Patient again educated that he can have PRN Dilaudid every 3 hours and PRN Oxycodone every 4 hours, as ordered. Patient states I'm not going to argue with you, I'll just argue with the doctor tomorrow.
[2023-10-28] MEDS: water for injection-sterile SDV 10 mL 20 ML IVP (21:14)
[2023-10-29] VITALS (16 sets, daily range): BP systolic 102–183; BP diastolic 69–110; PULSE 93–121; RESP 16–22; TEMP 36.6–38.6; O2SAT 92–97
[2023-10-29] MEDS: HYDROmorphone 1 mg/mL INJ 1 mL IVP ×7 (01:47→21:34)
[2023-10-29] MEDS: oxyCODONE-APAP 5-325 mg Tablet 1 TAB PO ×4 (01:48→13:39)
[2023-10-29] MEDS: sodium chloride 0.9% 1,000 ML 150 ML IV ×3 (04:43→16:15)
[2023-10-29] MEDS: meropenem 1,000 mg SDV 1000 MG IVP ×3 (05:48→22:11)
[2023-10-29] MEDS: water for injection-sterile SDV 10 mL 20 ML IVP ×3 (05:48→22:12)
[2023-10-29] MEDS: nicotine 21 mg Patch 1 PATCH TRANSDERMA ×2 (07:39→22:29)
--- NOTE | 2023-10-29 08:38 | P.PN_ITS ---
Subjective 2 Subjective: Xander reports he is still having significant pain. He has had multiple doses of IV Dilaudid through the night. However, he is less nauseated, and has had no vomiting. Overall the pain is perhaps slightly better than on admission. Medications: Reviewed: Yes Vitals/I&O/Wt Last Vital Signs Temp 98.3 F 10/29/23 04:00 Pulse 99 10/29/23 07:22 Resp 20 H 10/29/23 07:40 BP 153/90 10/29/23 07:22 Pulse Ox 92 10/29/23 07:22 O2 Del Method Room Air 10/29/23 07:22 10/28/23 10/29/23 10/29/23 22:59 06:59 14:59 Intake Total 1240 / 1240 1150 / 2390 Balance 1240 / 1240 1150 / 2390 Weight last 48 hrs Weight 110.631 kg Weight 104.326 kg Weight 104.326 kg Physical Exam 2 Narrative: General exam is a white male, pain appears better controlled Neck is supple no lymphadenopathy thyromegaly Cardiovascular regular rate and rhythm without murmur Lungs clear no wheezing or crackles Abdomen soft but tender, nondistended Extremities no cyanosis clubbing or edema, cap refill brisk Data 10/28/23 09:44 10/28/23 09:44 Other Labs: Lab pending for today Micro: Microbiology 10/28/23 17:48 Blood Culture - Preliminary Blood SPECIMEN COLLECTED 10/28/23 14:06 Blood Culture - Preliminary Blood SPECIMEN COLLECTED A&P Assessment and plan (1) Pancreatitis: Patient presents with acute pancreatitis. He has past history of hospitalization for acute pancreatitis in March. There is no evidence of duct dilation. Triglyceride level is not high enough to think this is the cause. Most likely alcohol is the cause. He is not on any external medications. Continue hydration and pain control. He is still requiring IV pain medication frequently Note currently has pancreatitis may be complicated as there is concern of questionable necrosis mainly in the tail and perhaps an area of the body. Secondary concern for pancreatic necrosis will continue IV antibiotics in the form of meropenem Close follow-up of electrolytes Discussed with him avoiding all alcohol. Advance diet slightly to full liquid Await cultures and lab work Qualifiers: Acute pancreatitis complication: infected necrosis Chronicity: acute P ancreatitis type: unspecified pancreatitis type Qualified Code(s): K85.92 - Acute pancreatitis with infected necrosis, unspecified Plan Nicotine dependency. Continue nicotine patch Full code DVT prophylaxis with Lovenox Attestations 2 Medical Necessity Statement*: Needs continued hospitalization secondary to abdominal pain from acute pancreatitis with possible necrosis with need for prophylactic antibiotic as well as frequent IV pain medication dosing Diagnoses Pancreatitis K85.92 Acute pancreatitis complication: infected necrosis Chronicity: acute Pancreatitis type: unspecified pancreatitis type Time Spent (min) 24
--- NOTE | 2023-10-29 09:36 | PC.CHAP ---
Pastoral Care Encounter/Spiritual Assessment Type of Contact [] Declined acid retort operator visit [] Patient/Family/Request visit [] Outpatient visit [] Follow-up visit [] Physician referral [] Code/Alert [x] Routine visit [] Staff referral [] Actively dying [] Patient sleeping [] Family support [] [] Out of room [] Palliative care [] [] Receiving care in room [] Pre-surgical visit [] Trauma [] Long length of stay [] ICU visit [] Other: Relational/Emotional Strength [x] Patient feels connected with others/family/visitors/staff [] Distress [] Loneliness/isolation [] Abandonment Spirituality of Patient [x] Person of Radha [] Attends Yarsani of their Radha [x] Believes in Prayer [] Reads Bible or Anglican materials [] There are Spiritual issues to be addressed Choker Setter Interventions [x] Prayer [x] Active listening [] Non-anxious presence [x] Spiritual/emotional support [] Crisis/trauma care [] Spiritual counseling [] Bereavement support [] Provided bereavement packet [] Provided Bible/devotional materials [] Provided toy/stuffed animal, coloring book to patient or family member [] Provided Communion [] Anointing/Michie [] Salvation [x] Completed spiritual assessment [] Other: Impact on Illness or Injury [] Angry [] Fearful [] Anxious [] Often cries [] Exhaustion [] Unable to work [] Unable to attend restorationist [] Unable to walk/stand [] Unable to read [] Unable to drive [] Unable to eat/drink [] Unable to sleep [] Unable to be with family [] Patient intubated [] Other: Summary Time spent with patient 5 min
[2023-10-29] MEDS: pantoprazole 40 mg SDV IVP ×2 (09:58→22:11)
[2023-10-29] MEDS: enoxaparin 40 mg/0.4 mL Syringe SUBCUT (13:38)
[2023-10-29] MEDS: acetaminophen 325 mg Tablet 650 MG PO (16:14)
[2023-10-29] MEDS: oxyCODONE 5 mg IR Tab/Cap 10 MG PO ×2 (17:27→21:34)
--- NOTE | 2023-10-29 22:08 | PC.NURSE ---
Pts nicotine patch came off in shower. Notified Dr Razo, new orders received for a nicotine patch once.
[2023-10-29] MEDS: docusate sodium 100 mg Capsule PO (22:12)
[2023-10-30] VITALS (20 sets, daily range): BP systolic 122–148; BP diastolic 75–94; PULSE 61–122; RESP 14–20; TEMP 37–37.8; O2SAT 92–96
[2023-10-30] MEDS: HYDROmorphone 1 mg/mL INJ 1 mL IVP ×7 (00:34→22:15)
[2023-10-30] MEDS: oxyCODONE 5 mg IR Tab/Cap 10 MG PO ×6 (01:34→23:13)
[2023-10-30] MEDS: sodium chloride 0.9% 1,000 ML 150 ML IV ×2 (01:35→09:26)
[2023-10-30] MEDS: water for injection-sterile SDV 10 mL 20 ML IVP ×3 (05:51→21:48)
[2023-10-30] MEDS: meropenem 1,000 mg SDV 1000 MG IVP ×3 (05:51→21:47)
[2023-10-30 06:07] LABS: Basophils # 0.1 10^3/uL (0.0-0.1); Basophils % 0.3 %; Eosinophils % 0.1 %; Hematocrit 45.2 % (37-53); Lymphocytes # 1.1 10^3/uL (0.8-4.8); Lymphocytes % 5.5 %; Mean Corpuscular HGB Conc 35.4 g/dL (30-55); Mean Corpuscular Hemoglobin 36.5 pg (27-33); Mean Corpuscular Volume 103.2 fl (82-101); Mean Platelet Volume 10.7 fL (7.4-10.4); Monocytes # 1.2 10^3/uL (0.2-0.9); Monocytes % 6.1 %; Neutrophils # 16.73 10^3/uL (1.8-7.7); Nucleated Red Blood Cells % 0 %; Platelet Count 134 10^3/cmm (157-399); Red Blood Count 4.38 10^6/uL (3.85-5.65); Red Cell Distribution Width 13.7 % (12.1-15.1); White Blood Count 19.42 10^3/uL (3.29-11.43)
[2023-10-30 06:31] LABS: Alanine Aminotransferase 12 U/L (0-41); Albumin Level 3.1 g/dL (3.5-5.2); Alkaline Phosphatase 54 U/L (40-130); Aspartate Amino Transferase 19 U/L (0-40); Blood Urea Nitrogen 8 mg/dL (6-20); Calcium 7.9 mg/dL (8.5-10.5); Carbon Dioxide 23 mmol/L (22-29); Chloride 101 mmol/L (98-107); Creatinine Clr Calc Pharmacy 147.8254; Globulin 3.1 g/dL (1.3-4.6); Glomerular Filtration Rate 103.6 mL/min (90-130); Glucose 95 mg/dL (65-115); Magnesium 1.7 mg/dL (1.7-2.3); Osmolality Calculated 276 mOsm/kg (285-295); Sodium 134 mmol/L (136-145); Total Protein 6.2 g/dL (6.6-8.7)
[2023-10-30 06:33] LABS: Anion Gap 13.5 (5-19); Potassium 3.5 mmol/L (3.5-5.1)
[2023-10-30] MEDS: thiamine 100 mg Tablet PO (08:22)
[2023-10-30] MEDS: folic acid 1 mg Tablet PO (08:22)
[2023-10-30] MEDS: docusate sodium 100 mg Capsule PO ×2 (08:22→17:20)
[2023-10-30] MEDS: multivitamin therapeutic Tablet 1 TAB PO (08:22)
--- NOTE | 2023-10-30 08:55 | P.PN_ITS ---
Subjective 2 Subjective: Patient reports he feels a little bit better. Not nauseated. Pain is a little bit less. Did develop fever yesterday. I reviewed with him his history again, and he denies any IV drug use. Medications: Reviewed: Yes Vitals/I&O/Wt Last Vital Signs Temp 98.9 F 10/30/23 08:00 Pulse 116 H 10/30/23 08:00 Resp 14 10/30/23 08:00 BP 128/79 10/30/23 08:00 Pulse Ox 94 10/30/23 08:00 O2 Del Method Room Air 10/30/23 08:00 10/29/23 10/30/23 10/30/23 22:59 06:59 14:59 Intake Total 2332.5 / 3610.0 570 / 4180.0 Output Total 300 / 300 350 / 650 Balance 2032.5 / 3310.0 220 / 3530.0 Weight last 48 hrs Weight 112.491 kg Weight 110.631 kg Weight 104.326 kg Physical Exam 2 Narrative: General exam is a white male, reports pain is approximately an 8 Neck is supple no lymphadenopathy thyromegaly Cardiovascular regular rate and rhythm without murmur Lungs clear no wheezing or crackles Abdomen soft but tender, nondistended. Bowel sounds noted Extremities no cyanosis clubbing or edema, cap refill brisk Data 10/30/23 05:30 10/30/23 05:30 Micro: Microbiology 10/28/23 17:48 Blood Culture - Preliminary Blood NEGATIVE TO DATE 10/28/23 14:06 Blood Culture - Preliminary Blood NEGATIVE TO DATE A&P Assessment and plan (1) Pancreatitis: Patient presents with acute pancreatitis. He has past history of hospitalization for acute pancreatitis in March. There is no evidence of duct dilation. Triglyceride level is not high enough to think this is the cause. Most likely alcohol is the cause. He is not on any external medications. Continue hydration and pain control. He is still requiring IV pain medication frequently Note currently has pancreatitis may be complicated as there is concern of questionable necrosis mainly in the tail and perhaps an area of the body. He has not developed fever, which is likely from his pancreatitis. Infection of the necrotic area would be unusual considering the acuteness of his presentation and the fact he was put on prophylactic antibiotics on admission Secondary concern for pancreatic necrosis will continue IV antibiotics in the form of meropenem Close follow-up of electrolytes Discussed with him avoiding all alcohol. Advance diet slightly to full liquid Await cultures and lab work. Blood cultures negative to date Add incentive spirometry in case atelectasis could play a role Consider repeat cultures should any decompensation occur or recurrent fevers Qualifiers: Acute pancreatitis complication: infected necrosis Chronicity: acute P ancreatitis type: unspecified pancreatitis type Qualified Code(s): K85.92 - Acute pancreatitis with infected necrosis, unspecified Plan Nicotine dependency. Continue nicotine patch Full code DVT prophylaxis with Lovenox Attestations 2 Medical Necessity Statement*: Needs continued hospitalization secondary to acute pancreatitis still with significant pain requiring hydration, IV pain medication, close follow-up secondary to development of fever Diagnoses Pancreatitis K85.92 Acute pancreatitis complication: infected necrosis Chronicity: acute Pancreatitis type: unspecified pancreatitis type Time Spent (min) 23
[2023-10-30] MEDS: pantoprazole 40 mg SDV IVP ×2 (09:25→21:47)
[2023-10-30] MEDS: nicotine 21 mg Patch 1 PATCH TRANSDERMA (09:47)
[2023-10-30] MEDS: enoxaparin 40 mg/0.4 mL Syringe SUBCUT (13:04)
[2023-10-30] MEDS: sodium chloride 0.9% 1,000 ML 125 ML IV (17:19)
[2023-10-31] VITALS (8 sets, daily range): BP systolic 118–133; BP diastolic 74–78; PULSE 103–109; RESP 16–18; TEMP 37.3–37.4; O2SAT 93–94
[2023-10-31] MEDS: HYDROmorphone 1 mg/mL INJ 1 mL IVP ×3 (02:39→08:43)
[2023-10-31] MEDS: sodium chloride 0.9% 1,000 ML 125 ML IV (02:41)
[2023-10-31] MEDS: oxyCODONE 5 mg IR Tab/Cap 10 MG PO ×2 (03:20→08:36)
[2023-10-31 05:40] LABS: Basophils % 0.2 %; Eosinophils # 0.1 10^3/uL (0.0-0.8); Eosinophils % 0.4 %; Hematocrit 37.8 % (37-53); Lymphocytes # 1.1 10^3/uL (0.8-4.8); Lymphocytes % 8.6 %; Mean Corpuscular HGB Conc 34.7 g/dL (30-55); Mean Corpuscular Hemoglobin 35.9 pg (27-33); Mean Corpuscular Volume 103.6 fl (82-101); Mean Platelet Volume 10.1 fL (7.4-10.4); Monocytes # 0.9 10^3/uL (0.2-0.9); Monocytes % 7.1 %; Neutrophils # 10.25 10^3/uL (1.8-7.7); Neutrophils % 79.1 %; Nucleated Red Blood Cells % 0 %; Platelet Count 111 10^3/cmm (157-399); Red Blood Count 3.65 10^6/uL (3.85-5.65); Red Cell Distribution Width 13.6 % (12.1-15.1); White Blood Count 12.95 10^3/uL (3.29-11.43)
[2023-10-31] MEDS: meropenem 1,000 mg SDV 1000 MG IVP (05:54)
[2023-10-31] MEDS: water for injection-sterile SDV 10 mL 20 ML IVP (05:55)
[2023-10-31 06:01] LABS: Alanine Aminotransferase 9 U/L (0-41); Albumin Level 2.9 g/dL (3.5-5.2); Alkaline Phosphatase 50 U/L (40-130); Anion Gap 14.3 (5-19); Aspartate Amino Transferase 13 U/L (0-40); Blood Urea Nitrogen 9 mg/dL (6-20); Calcium 7.8 mg/dL (8.5-10.5); Carbon Dioxide 24 mmol/L (22-29); Chloride 103 mmol/L (98-107); Creatinine Clr Calc Pharmacy 166.4324; Globulin 2.7 g/dL (1.3-4.6); Glomerular Filtration Rate 120.9 mL/min (90-130); Glucose 109 mg/dL (65-115); Osmolality Calculated 285 mOsm/kg (285-295); Potassium 3.3 mmol/L (3.5-5.1); Sodium 138 mmol/L (136-145); Total Bilirubin 0.7 mg/dL (0.15-1.2); Total Protein 5.6 g/dL (6.6-8.7)
[2023-10-31] MEDS: multivitamin therapeutic Tablet 1 TAB PO (08:37)
[2023-10-31] MEDS: folic acid 1 mg Tablet PO (08:37)
[2023-10-31] MEDS: thiamine 100 mg Tablet PO (08:37)
[2023-10-31] MEDS: nicotine 21 mg Patch 1 PATCH TRANSDERMA (08:37)
[2023-10-31] MEDS: docusate sodium 100 mg Capsule PO (08:37)
[2023-10-31] MEDS: potassium chloride ER 20 mEq Tablet 40 MEQ PO (08:37)
--- NOTE | 2023-10-31 08:57 | P.DS_ITS ---
Discharge Providers Date of Admission: 10/28/23 13:12 Date of Discharge: October 31, 2023 Attending Provider at Admission: Aaron Hagan MD Attending Provider at Discharge: Aaron Hagan MD Diagnoses at Discharge Discharge Diagnosis (1) Pancreatitis: Status: Acute Qualifiers: Acute pancreatitis complication: infected necrosis Chronicity: acute Pancreatitis type: unspecified pancreatitis type Qualified Code(s): K85.92 - Acute pancreatitis with infected necrosis, unspecified Reason for Visit Reason for Visit: n/v, left side pain, chest pain Hospital Course Hospital Course Xander is a 48-year-old white male who presented to the hospital with significant abdominal pain, vomiting. He had a past history of pancreatitis, most likely from alcohol intake. Triglyceride levels were less than the thousand. He was placed in the hospital for pain control, hydration, and close monitoring. There was concern on initial CT scan of possible early necrosis of the tail or body of the pancreas. During his hospital stay he had gradual improvement. He did have 1 fever of 101.4 on 10/28. Other than that low-grade temperature elevations occurred. White blood cell count was elevated initially and coming down by the end of his hospital stay. He had significant improvement of pain and nausea and was able to tolerate full liquids without difficulty by end of hospital stay. He reported his pain was much better, and would like to be discharged. I discussed with him the risks and benefits, concern of an area of pancreatic necrosis, need for continue short course of antibiotics, follow-up with his primary care provider, repeat CT scan of pancreas to look for pseudocyst or fluid formation in 2 weeks, return for any fever or increasing pain, avoidance of all alcohol, referral to GI physician through his primary care provider. He was amenable to these recommendations, was able to ask questions and agreed with the plan. Narcotics precautions were discussed, including a prescription for Narcan. Physical Exam Narrative: General exam no distress Neck is supple Cardiovascular regular rate and rhythm Lungs clear Abdomen is soft. Positive bowel sounds, no severe discomfort on discharge to palpation. Extremities no sinus clubbing edema Discharge Data Studies Completed and Pending Completed Studies During Hospitalization Category Date Time Status CT abdomen pelvis w con* [id number] Urgent Cat Scan 10/28/23 09:09 Completed XR chest 1V portable [id number] Urgent Exams 10/28/23 09:07 Completed Pending at discharge Category Date Time Status Blood Culture Stat Lab 10/28/23 17:48 Results Radiology Impressions Chest X-Ray 10/28/23 09:07 Impression: Negative chest. Abdomen/Pelvis CT 10/28/23 09:09 IMPRESSION: 1. Findings consistent with acute recurrent pancreatitis with questionable developing pancreatic necrosis involving body/tail the pancreas for which continued follow-up advised. 2. Findings inconclusive for small noncalcified gallstones. 3. Mild fatty infiltration of the liver. Laboratory Results WBC 12.95 10^3/uL (3.29-11.43) H 10/31/23 05:17 RBC 3.65 10^6/uL (3.85-5.65) L 10/31/23 05:17 Hgb 13.10 g/dL (11.27-16.99) 10/31/23 05:17 Hct 37.8 % (37-53) 10/31/23 05:17 MCV 103.6 fl (82-101) H 10/31/23 05:17 MCH 35.9 pg (27-33) H 10/31/23 05:17 MCHC 34.7 g/dL (30-55) 10/31/23 05:17 RDW 13.6 % (12.1-15.1) 10/31/23 05:17 Plt Count 111 10^3/cmm (157-399) L 10/31/23 05:17 MPV 10.1 fL (7.4-10.4) 10/31/23 05:17 Neut % (Auto) 79.1 % 10/31/23 05:17 Lymph % (Auto) 8.6 % 10/31/23 05:17 [place] % (Auto) 7.1 % 10/31/23 05:17 Eos % (Auto) 0.4 % 10/31/23 05:17 Baso % (Auto) 0.2 % 10/31/23 05:17 Neut # (Auto) 10.25 10^3/uL (1.8-7.7) H 10/31/23 05:17 Lymph # (Auto) 1.1 10^3/uL (0.8-4.8) 10/31/23 05:17 [place] # (Auto) 0.9 10^3/uL (0.2-0.9) 10/31/23 05:17 Eos # (Auto) 0.1 10^3/uL (0.0-0.8) 10/31/23 05:17 Baso # (Auto) 0.0 10^3/uL (0.0-0.1) 10/31/23 05:17 Nucleated RBC % (auto) 0 % 10/31/23 05:17 Nucleated RBCs # 0.0 /100WBC 10/31/23 05:17 Sodium 138 mmol/L (136-145) 10/31/23 05:17 Potassium 3.3 mmol/L (3.5-5.1) L 10/31/23 05:17 Chloride 103 mmol/L (98-107) 10/31/23 05:17 Carbon Dioxide 24 mmol/L (22-29) 10/31/23 05:17 Anion Gap 14.3 (5-19) 10/31/23 05:17 BUN 9 mg/dL (6-20) 10/31/23 05:17 Creatinine 0.7 mg/dL (0.7-1.2) 10/31/23 05:17 GFR Calculation 120.9 mL/min (90-130) 10/31/23 05:17 Glucose 109 mg/dL (65-115) 10/31/23 05:17 Calculated Osmolality 285 mOsm/kg (285-295) 10/31/23 05:17 Calcium 7.8 mg/dL (8.5-10.5) L 10/31/23 05:17 Magnesium 1.7 mg/dL (1.7-2.3) 10/30/23 05:30 Total Bilirubin 0.7 mg/dL (0.15-1.2) 10/31/23 05:17 AST 13 U/L (0-40) 10/31/23 05:17 ALT 9 U/L (0-41) 10/31/23 05:17 Alkaline Phosphatase 50 U/L (40-130) 10/31/23 05:17 Troponin T Baseline < 6 ng/L (0-15) 10/28/23 09:44 Troponin T 120 Minute 6.11 ng/L (0-15) 10/28/23 12:01 Delta Troponin T 0.36448 ABS# (0-10) 10/28/23 12:01 Troponin T Hi Sens 6Hr 6.74 ng/L (0-15) 10/28/23 17:48 Troponin T Hi Sens 6Hr Delta 0.96365 ng/L (0-12) 10/28/23 17:48 Total Protein 5.6 g/dL (6.6-8.7) L 10/31/23 05:17 Albumin 2.9 g/dL (3.5-5.2) L 10/31/23 05:17 Globulin 2.7 g/dL (1.3-4.6) 10/31/23 05:17 Triglycerides 542 mg/dL (0-150) H 10/28/23 09:44 LDL Cholesterol Direct 108 mg/dL (0-100) H 10/28/23 09:44 Lipase 1075 U/L (13-60) H 10/28/23 09:44 Urine Color Yellow (Yellow) 10/28/23 11:07 Urine Appearance Clear (CLEAR) 10/28/23 11:07 Urine pH 7 (5-7) 10/28/23 11:07 Ur Specific [place] 1.010 (1.005-1.030) 10/28/23 11:07 Urine Protein Neg (Negative) 10/28/23 11:07 Urine Glucose (UA) Norm (Normal) 10/28/23 11:07 Urine Ketones 2+ (Negative) H 10/28/23 11:07 Urine Blood Neg (Negative) 10/28/23 11:07 Urine Nitrate Negative (Negative) 10/28/23 11:07 Urine Bilirubin Neg (Negative) 10/28/23 11:07 Urine Urobilinogen Neg mg/dL (Negative) 10/28/23 11:07 Ur Leukocyte Esterase Negative (Negative) 10/28/23 11:07 Urine Opiates Screen Positive ng/mL (Negative) H 10/28/23 11:07 Ur Barbiturates Screen Negative ng/mL (Negative) 10/28/23 11:07 Ur Phencyclidine Scrn Negative ng/mL (Negative) 10/28/23 11:07 Ur Amphetamines Screen Negative ng/mL (Negative) 10/28/23 11:07 U Benzodiazepines Scrn Negative ng/mL (Negative) 10/28/23 11:07 Urine Cocaine Screen Negative ng/mL (Negative) 10/28/23 11:07 U Marijuana (THC) Screen Negative ng/mL (Negative) 10/28/23 11:07 Ethyl Alcohol < 10 mg/dL (0-10) 10/28/23 09:44 Vitals Last Vital Signs Temp 99.4 F 10/31/23 07:40 Pulse 103 H 10/31/23 07:40 Resp 16 10/31/23 08:43 BP 133/78 10/31/23 07:40 Pulse Ox 94 10/31/23 07:40 O2 Del Method Room Air 10/31/23 07:40 Discharge Plan Discharge Patient Disposition: Home Condition: Stable Prescriptions: New oxycodone 5 mg tablet 5 mg PO Q4H PRN (Reason: pain) Qty: 20 0RF docusate sodium [Colace] 100 mg capsule 100 mg PO BID Qty: 30 0RF ciprofloxacin HCl 500 mg tablet 500 mg PO BID Qty: 14 0RF metronidazole 500 mg tablet 500 mg PO TID Qty: 21 0RF naloxone [Narcan] 4 mg/actuation spray,non-aerosol 4 mg intranasal Q2M PRN (Reason: opioid overdose) Qty: 2 0RF Rx Instructions: spray 1 dose into ONE nostril; alternate nostrils w each dose until help arrives pantoprazole [Protonix] 40 mg tablet,delayed release (DR/EC) 40 mg PO DAILY Qty: 30 0RF Continued trazodone 50 mg tablet 50 mg PO BEDTIME Discontinued lisinopril 5 mg tablet 5 mg PO DAILY Discharge Orders: Discharge Order (Routine); Ordered 10/31/23 Ordered By: Aaron Hagan Referrals: [facility] [Other] (7 days/week 8am-6pm) [facility] [Outside] (? Follow up as a walk in at [facility], walk in hours are Saturday-Saturday from 7:30AM-3:00PM, first come, first seen. Once you do this assessment you will be referred for appropriate services.) Julianne Granger, MEAGHAN [Referring] - 4-7 days Discharge Diet: As Directed Discharge Activity: Increase activity as tolerated Patient Instructions: Opioid Safety, Pain Management Activity Restrictions/Additional Instructions: Take all medicine as prescribed Follow-up it was [facility] Julianne Granger. Please obtain a GI referral. You will need repeat imaging of the pancreas in approximately 14 days Return for any fever, worsening [place] diet, increasing from full liquids slowly Discharge Attestations Time Spent in Discharge Care*: greater than 30 min Quality Metrics Clinical Quality Measures [ No reported AMI, CVA or VTE this stay] Coding Level of Care Code 33116 Total time (in minutes) for Discharge: 40 Diagnoses Pancreatitis K85.92 Acute pancreatitis complication: infected necrosis Chronicity: acute Pancreatitis type: unspecified pancreatitis type
[2023-10-31] MEDS: pantoprazole 40 mg SDV IVP (10:32)
--- NOTE | 2023-11-05 10:26 | PC.NURSE ---
I received a call from patient stating that he was now out of Oxycodone that Dr. Hagan had ordered upon d/c from [facility] on 10/29. I informed him that our protocol was to refer patients to their primary care for more medications after d/c. He verbalizes understanding and states that he has a f/u appointment on 11/05, but is already out of pain medications now. I informed him I would speak with Dr. Hagan. I called and spoke with Dr. Hagan and reviewed the information with him. He states that patient was treated for Pancreatitis and his pain should be significantly improved by now and if patient requires more pain medications, he should f/u with his PCP or present back to the ED. I called back and explained this to patient. He verbalizes understanding and denies further questions or concerns at this time.
== END 2023-10-31 10:56 | disposition home or self-care (01) | DRG 440 ==
LOC: ER 11:44 → ER IP 13:13 → MEDSURG 14:45
PROVIDERS: Admitting Provider Internal Medicine; Emergency Provider Physician Assistant; Visit Provider Internal Medicine
DX: K85.92 Acute pancreatitis with infected necrosis, unspecified (principal); I10 Essential (primary) hypertension; Z72.0 Tobacco use
CPT/HCPCS: 36415; 71045; 74177; 80053; 80306; 80307; 81003; 83690; 83721; 83735; 84478; 84484; 85025; 87040; 93005; 96365; 96372; 96375; 96376; 99285; C9113; J0360; J1170; J1650; J2185; J2270; J2405; J2543; J3411; J7030; Q9967

== ENCOUNTER 2023-11-06 13:29 | Inpatient (IN) | payer BC, SELFPAY ==
[2023-11-06] VITALS (12 sets, daily range): BP systolic 154–175; BP diastolic 81–111; PULSE 58–98; RESP 15–20; TEMP 36.4; O2SAT 92–100
--- NOTE | 2023-11-06 14:51 | CTR_ITS ---
PROCEDURE INFORMATION: Exam: CT Abdomen And Pelvis With Contrast Exam date and time: 11/06/2023 3:14 PM Age: 48 years old Clinical indication: Abdominal pain; Localized; Upper; Patient HX: HX pancreatitis; Additional info: Abd pain TECHNIQUE: Imaging protocol: Computed tomography of the abdomen and pelvis with contrast. Radiation optimization: All CT scans at this facility use at least one of these dose optimization techniques: automated exposure control; mA and/or kV adjustment per patient size (includes targeted exams where dose is matched to clinical indication); or iterative reconstruction. Contrast material: OMNI 350; Contrast volume: 100 ml; Contrast route: INTRAVENOUS (IV); COMPARISON: CT abdomen pelvis w con* [id number] 10/28/2023 10:29 AM RADIATION DOSE METRICS: Total DLP (mGy-cm): 983.48 FINDINGS: Lungs: Images through the visualized lung bases demonstrate very small or trace left posterior basilar effusion with small amount of subjacent atelectasis. Trace left basilar effusion is new from recent prior exam. Liver: Mild fatty liver. No focal mass or dilated intrahepatic ducts. Anterior to posterior diameter of the right lobe of the liver measures 22 cm on axial exam, suggesting mild prominence. Gallbladder and biliary ducts: No calcified gallstone is seen within the gallbladder. Small mildly hyperdense rounded focus within the dependent portion may indicate gallbladder polyp or small noncalcified stone. Gallbladder appears well distended without significant wall thickening. No significant biliary ductal dilatation. Pancreas: Interval worsening in appearance of the body/tail region of the pancreas with prior exam, with significant hypodense fluid density component of the body/tail region as well as within the surrounding mesentery. Worsened appearance with increased fluid density of and around the body/tail of the pancreas suggest necrotizing pancreatitis. This could indicate phlegmon and/or developing abscesses. Hypodense focus at the neck region may indicate additional involvement more proximally. Spleen: Normal. No splenomegaly. Adrenal glands: Normal. No mass. Kidneys and ureters: Small rounded hypodense left renal cyst is seen, unchanged with prior exam. Kidneys appear unremarkable otherwise. No obstructive uropathy. Stomach and bowel: No obstruction. Adjacent reactive changes of the stomach and colon around the area severe pancreatitis. Bowel is otherwise unremarkable. Appendix: No evidence of appendicitis. Intraperitoneal space: No significant ascites otherwise within the abdomen or pelvis. No free air. Vasculature: Major vascular structures appear patent. Nonaneurysmal abdominal aorta. Lymph nodes: Unremarkable. No enlarged lymph nodes. Urinary bladder: Unremarkable as visualized. Reproductive: A few small prostate calcification. Bones/joints: Bone windows show no acute osseous abnormality. Soft tissues: Small fat containing inguinal hernias, as noted with prior exam. CT/CT abdomen pelvis w con* [id number] IMPRESSION: Interval worsening in appearance of the pancreatitis from prior exam 10/28/2023, as noted above. Appearance suggest necrotizing pancreatitis with increased fluid density involving the body and tail and surrounding region of the pancreas, likely phlegmon and/or developing abscesses. Reactive changes versus involvement of the posterior margin of the stomach.
[2023-11-06] MEDS: ondansetron 2 mg/ML SDV 2 mL 4 MG IVP (15:10)
[2023-11-06] MEDS: morphine 4 mg/mL SDV 1 mL IVP ×2 (15:10→18:04)
--- NOTE | 2023-11-06 15:10 | W.ED.ABDPA2 ---
Documented by User: Hubert Samuel DO 11/07/23 17:43 HPI - Abdominal Pain General: Chief Complaint: Abdominal Pain Stated Complaint: abd pain/ pancreatitis Time Seen by Provider: 11/06/23 14:46 Source: patient Mode of arrival: ambulatory History of Present Illness: 48-year-old male presents to the emergency room with complaint of abdominal pain. Patient has known history of alcoholic pancreatitis he was admitted here on the he was here for 4 days and discharged home on the . He states he did get his oral antibiotics Cipro and Flagyl he denies having drink since then. He has worsening abdominal pain left upper quadrant denies hematochezia melena hematemesis coffee-ground emesis. When he was admitted previously there is a question of necrotizing pancreatitis however was getting better and the hospitalist had discharged him home as he had improved was able to eat without problems. Over the last several days his symptoms have worsened MD elicited complaint: abdominal pain Pertinent past history: other (Alcohol induced pancreatitis) Onset (ago): day(s) Location: LUQ Severity: severe Quality: sharp Exacerbating factors: nothing Relieving factors: nothing Associated Symptoms: Reports nausea and poor appetite; Denies anorexia, belching, bloating, change in bowel habits, change in stool character, chills, coffee ground emesis, constipation, GI cramping, diarrhea, dyspepsia, dysuria, excessive flatus, fever(s), heartburn, hematochezia, hematuria, hematemesis, fecal incontinence, loose stools, melena, syncope and vomiting Review of Systems Const: Reports: fatigue and malaise; Denies: fever(s) or chills Card: Denies: chest pain or syncope Resp: Denies: dyspnea GI: Reports: abdominal pain and nausea; Denies: vomiting, hematemesis, coffee ground emesis, heartburn, diarrhea, constipation, bloating, GI cramping, belching, excessive flatus, fecal incontinence, change in bowel habits, change in stool character, hematochezia or melena : Denies: flank pain, dysuria, urinary frequency, urinary urgency or hematuria Musc: Denies: neck pain or back pain Skin/Breast: Denies: rash PFSH ED PFSH: Medical History Pancreatitis Surgical History History of ear surgery Family History Other Cancer Social History Smoking and tobacco/nicotine status: current every day tobacco/nicotine user Alcohol intake: current Substance/Drug Use: never Physical Exam Const: GENERAL APPEARANCE: cooperative ORIENTATION/CONSCIOUSNESS: Yes awake, Yes oriented to person, Yes oriented to place and Yes oriented to time HENMT: COMMON NORMALS: normocephalic, atraumatic and hearing grossly normal bilaterally HEAD & SCALP: normocephalic and atraumatic Resp: COMMON NORMALS: normal respiratory effort, No retractions, No use of accessory muscles and clear to auscultation bilaterally AUSCULTATION: clear to auscultation bilaterally Cardio: COMMON NORMALS: regular rate, regular rhythm and No murmurs present (Cardio) RATE: regular rate RHYTHM: regular rhythm GI: COMMON NORMALS: No hepatosplenomegaly present AUSCULTATION: Yes normoactive bowel sounds PALPATION: Yes Tenderness to palpation present (GI) Details: LUQ, Yes Guarding due to palpation present (GI) in the LUQ and Yes No hepatosplenomegaly present Extremity: COMMON NORMALS: normal to inspection, capillary refill normal, no clubbing, cyanosis or edema, no calf tenderness and no pedal edema Neuro: SENSORIUM/ORIENTATION: Yes oriented to person, Yes oriented to place and Yes oriented to time Skin: COMMON NORMALS: no rashes or lesions noted GENERAL SKIN EXAM: no rashes or lesions noted Course Vital Signs: Vital signs: Vital Signs Temperature 97.6 F 11/06/23 13:35 Pulse Rate 83 11/07/23 10:48 Respiratory Rate 18 11/07/23 12:21 Blood Pressure 150/98 11/07/23 16:11 Pulse Oximetry 97 11/07/23 16:11 Oxygen Delivery Me thod Room Air 11/07/23 16:11 MDM - Abdominal Pain Medical Decision Making Worsening necrotizing pancreatitis with the druze of phlegmon possible developing abscess. We do not have GI or surgical services with the ability to drain this or interventional radiology that would be able to place pancreatic drain will transfer. Due to the severity of his condition he will need to go to tertiary care center/university setting. Care signed out to Dr. Severino at change of shift. See final notes for diagnosis and disposition. [facility] callback, Dr. Nidia wu GI was consulted he is agreeing to be consulted but thinks we should admit to the medicine service, Dr. Ghotra internal medicine was consulted who agreed to admit the patient. Awaiting for bed callback. 11/07/23 1654 Care was assumed at change of shift morning labs ordered. Looks like will be some time before able to get a bed at [facility]. Consult to Dr. Hagan. He has seen the patient made adjustments to his medications we have ordered scheduled antibiotics and pain medications. Patient has been stable throughout the day. Lipase is decreased significantly. We contacted [facility] again and they are expecting it to be a minimum of 3 days or more before they have a bed available. I discussed Dr. Hagan will admit him here. Dr. Anguiano be the receiving at [facility]. Medical Records I reviewed the patient's medical records. Lab Data 11/07/23 11:01 11/07/23 06:53 Labs/Radiology: Radiology Impressions Abdomen/Pelvis CT 11/06/23 14:51 IMPRESSION: Interval worsening in appearance of the pancreatitis from prior exam 10/28/2023, as noted above. Appearance suggest necrotizing pancreatitis with increased fluid density involving the body and tail and surrounding region of the pancreas, likely phlegmon and/or developing abscesses. Reactive changes versus involvement of the posterior margin of the stomach. ADDENDUM: 11/06/23 1891 THIS REPORT CONTAINS FINDINGS THAT MAY BE CRITICAL TO PATIENT CARE. The findings were verbally communicated via telephone conference with HUBERT Bowers at 4:20 PM CDT on 11/06/2023. The findings were acknowledged and understood. Laboratory Results WBC 15.41 10^3/uL (3.29-11.43) H 11/07/23 11:01 Corrected WBC Cancelled 11/07/23 09:52 RBC 3.68 10^6/uL (3.85-5.65) L 11/07/23 11:01 Hgb 13.40 g/dL (11.27-16.99) 11/07/23 11:01 Hct 41.0 % (37-53) 11/07/23 11:01 MCV 111.4 fl (82-101) H D 11/07/23 11:01 MCH 36.4 pg (27-33) H 11/07/23 11:01 MCHC 32.7 g/dL (30-55) D 11/07/23 11:01 RDW 13.6 % (12.1-15.1) 11/07/23 11:01 Plt Count 319 10^3/cmm (157-399) 11/07/23 11:01 MPV 9.6 fL (7.4-10.4) 11/07/23 11:01 Gran % Cancelled 11/07/23 09:52 Neut % (Auto) 82.3 % 11/07/23 11:01 Lymph % (Auto) 10.7 % 11/07/23 11:01 Ashley % (Auto) 4.6 % 11/07/23 11:01 Eos % (Auto) 1.3 % 11/07/23 11:01 Baso % (Auto) 0.4 % 11/07/23 11:01 Neut # (Auto) 12.68 10^3/uL (1.8-7.7) H 11/07/23 11:01 Lymph # (Auto) 1.7 10^3/uL (0.8-4.8) 11/07/23 11:01 Ashley # (Auto) 0.7 10^3/uL (0.2-0.9) 11/07/23 11:01 Eos # (Auto) 0.2 10^3/uL (0.0-0.8) 11/07/23 11:01 Baso # (Auto) 0.1 10^3/uL (0.0-0.1) 11/07/23 11:01 Absolute Gran (auto) Cancelled 11/07/23 09:52 Nucleated RBC % (auto) 0 % 11/07/23 11:01 Nucleated RBCs # 0.0 /100WBC 11/07/23 11:01 Sodium 140 mmol/L (136-145) 11/07/23 06:53 Potassium 3.6 mmol/L (3.5-5.1) 11/07/23 06:53 Chloride 103 mmol/L (98-107) 11/07/23 06:53 Carbon Dioxide 23 mmol/L (22-29) 11/07/23 06:53 Anion Gap 17.6 (5-19) 11/07/23 06:53 BUN 5 mg/dL (6-20) L 11/07/23 06:53 Creatinine 0.7 mg/dL (0.7-1.2) 11/07/23 06:53 GFR Calculation 120.9 mL/min (90-130) 11/07/23 06:53 Glucose 109 mg/dL (65-115) 11/07/23 06:53 Calculated Osmolality 288 mOsm/kg (285-295) 11/07/23 06:53 Lactic Acid 1.3 mmol/L (0.5-2.2) 11/06/23 15:10 Calcium 8.4 mg/dL (8.5-10.5) L 11/07/23 06:53 Total Bilirubin 0.4 mg/dL (0.15-1.2) 11/07/23 06:53 AST 14 U/L (0-40) 11/07/23 06:53 ALT 14 U/L (0-41) 11/07/23 06:53 Alkaline Phosphatase 60 U/L (40-130) 11/07/23 06:53 C-Reactive Protein 63.1 mg/L (0.0-4.9) H 11/07/23 06:53 Total Protein 6.6 g/dL (6.6-8.7) 11/07/23 06:53 Albumin 3.5 g/dL (3.5-5.2) 11/07/23 06:53 Globulin 3.1 g/dL (1.3-4.6) 11/07/23 06:53 Triglycerides 116 mg/dL (0-150) 11/06/23 15:10 Lipase 228 U/L (13-60) H 11/07/23 06:53 Urine Color Yellow (Yellow) 11/07/23 09:10 Urine Appearance Clear (CLEAR) 11/07/23 09:10 Urine pH 7 (5-7) 11/07/23 09:10 Ur Specific Humphreys 1.010 (1.005-1.030) 11/07/23 09:10 Urine Protein Neg (Negative) 11/07/23 09:10 Urine Glucose (UA) Norm (Normal) 11/07/23 09:10 Urine Ketones 1+ (Negative) H 11/07/23 09:10 Urine Blood Neg (Negative) 11/07/23 09:10 Urine Nitrate Negative (Negative) 11/07/23 09:10 Urine Bilirubin Neg (Negative) 11/07/23 09:10 Urine Urobilinogen Norm mg/dL (Negative) 11/07/23 09:10 Ur Leukocyte Esterase Negative (Negative) 11/07/23 09:10 Ethyl Alcohol < 10 mg/dL (0-10) 11/06/23 15:10 All radiology interpretation(s) finalized by discharge Discharge Plan Discharge Patient Disposition: Admitted As Inpatient Clinical Impression: Acute necrotizing pancreatitis Condition: Stable Coding Level of Care Code ED Quality Analyst for Chg Fwd Documented by User: Barney Severino DO 11/06/23 18:58 HPI - Abdominal Pain General: Chief Complaint: Abdominal Pain Stated Complaint: abd pain/ pancreatitis Time Seen by Provider: 11/06/23 14:46 PFSH ED PFSH: Medical History Pancreatitis Surgical History History of ear surgery Family History Other Cancer Social History Smoking and tobacco/nicotine status: current every day tobacco/nicotine user Alcohol intake: current Substance/Drug Use: never Course Vital Signs: Vital signs: Vital Signs Temperature 97.6 F 11/06/23 13:35 Pulse Rate 83 11/07/23 10:48 Respiratory Rate 18 11/07/23 12:21 Blood Pressure 150/98 11/07/23 16:11 Pulse Oximetry 97 11/07/23 16:11 Oxygen Delivery Me thod Room Air 11/07/23 16:11 MDM - Abdominal Pain Medical Decision Making Worsening necrotizing pancreatitis with the druze of phlegmon possible developing abscess. We do not have GI or surgical services with the ability to drain this or interventional radiology that would be able to place pancreatic drain will transfer. Due to the severity of his condition he will need to go to tertiary care center/university setting. Care signed out to Dr. Severino at change of shift. See final notes for diagnosis and disposition. [facility] callback, Dr. Nidia wu GI was consulted he is agreeing to be consulted but thinks we should admit to the medicine service, Dr. Ghotra internal medicine was consulted who agreed to admit the patient. Awaiting for bed callback. Lab Data 11/07/23 11:01 11/07/23 06:53 Labs/Radiology: Radiology Impressions Abdomen/Pelvis CT 11/06/23 14:51 IMPRESSION: Interval worsening in appearance of the pancreatitis from prior exam 10/28/2023, as noted above. Appearance suggest necrotizing pancreatitis with increased fluid density involving the body and tail and surrounding region of the pancreas, likely phlegmon and/or developing abscesses. Reactive changes versus involvement of the posterior margin of the stomach. ADDENDUM: 11/06/23 1621 THIS REPORT CONTAINS FINDINGS THAT MAY BE CRITICAL TO PATIENT CARE. The findings were verbally communicated via telephone conference with HUBERT Bowers at 4:20 PM CDT on 11/06/2023. The findings were acknowledged and understood. Laboratory Results WBC 15.41 10^3/uL (3.29-11.43) H 11/07/23 11:01 Corrected WBC Cancelled 11/07/23 09:52 RBC 3.68 10^6/uL (3.85-5.65) L 11/07/23 11:01 Hgb 13.40 g/dL (11.27-16.99) 11/07/23 11:01 Hct 41.0 % (37-53) 11/07/23 11:01 MCV 111.4 fl (82-101) H D 11/07/23 11:01 MCH 36.4 pg (27-33) H 11/07/23 11:01 MCHC 32.7 g/dL (30-55) D 11/07/23 11:01 RDW 13.6 % (12.1-15.1) 11/07/23 11:01 Plt Count 319 10^3/cmm (157-399) 11/07/23 11:01 MPV 9.6 fL (7.4-10.4) 11/07/23 11:01 Gran % Cancelled 11/07/23 09:52 Neut % (Auto) 82.3 % 11/07/23 11:01 Lymph % (Auto) 10.7 % 11/07/23 11:01 Ashley % (Auto) 4.6 % 11/07/23 11:01 Eos % (Auto) 1.3 % 11/07/23 11:01 Baso % (Auto) 0.4 % 11/07/23 11:01 Neut # (Auto) 12.68 10^3/uL (1.8-7.7) H 11/07/23 11:01 Lymph # (Auto) 1.7 10^3/uL (0.8-4.8) 11/07/23 11:01 Ashley # (Auto) 0.7 10^3/uL (0.2-0.9) 11/07/23 11:01 Eos # (Auto) 0.2 10^3/uL (0.0-0.8) 11/07/23 11:01 Baso # (Auto) 0.1 10^3/uL (0.0-0.1) 11/07/23 11:01 Absolute Gran (auto) Cancelled 11/07/23 09:52 Nucleated RBC % (auto) 0 % 11/07/23 11:01 Nucleated RBCs # 0.0 /100WBC 11/07/23 11:01 Sodium 140 mmol/L (136-145) 11/07/23 06:53 Potassium 3.6 mmol/L (3.5-5.1) 11/07/23 06:53 Chloride 103 mmol/L (98-107) 11/07/23 06:53 Carbon Dioxide 23 mmol/L (22-29) 11/07/23 06:53 Anion Gap 17.6 (5-19) 11/07/23 06:53 BUN 5 mg/dL (6-20) L 11/07/23 06:53 Creatinine 0.7 mg/dL (0.7-1.2) 11/07/23 06:53 GFR Calculation 120.9 mL/min (90-130) 11/07/23 06:53 Glucose 109 mg/dL (65-115) 11/07/23 06:53 Calculated Osmolality 288 mOsm/kg (285-295) 11/07/23 06:53 Lactic Acid 1.3 mmol/L (0.5-2.2) 11/06/23 15:10 Calcium 8.4 mg/dL (8.5-10.5) L 11/07/23 06:53 Total Bilirubin 0.4 mg/dL (0.15-1.2) 11/07/23 06:53 AST 14 U/L (0-40) 11/07/23 06:53 ALT 14 U/L (0-41) 11/07/23 06:53 Alkaline Phosphatase 60 U/L (40-130) 11/07/23 06:53 C-Reactive Protein 63.1 mg/L (0.0-4.9) H 11/07/23 06:53 Total Protein 6.6 g/dL (6.6-8.7) 11/07/23 06:53 Albumin 3.5 g/dL (3.5-5.2) 11/07/23 06:53 Globulin 3.1 g/dL (1.3-4.6) 11/07/23 06:53 Triglycerides 116 mg/dL (0-150) 11/06/23 15:10 Lipase 228 U/L (13-60) H 11/07/23 06:53 Urine Color Yellow (Yellow) 11/07/23 09:10 Urine Appearance Clear (CLEAR) 11/07/23 09:10 Urine pH 7 (5-7) 11/07/23 09:10 Ur Specific Humphreys 1.010 (1.005-1.030) 11/07/23 09:10 Urine Protein Neg (Negative) 11/07/23 09:10 Urine Glucose (UA) Norm (Normal) 11/07/23 09:10 Urine Ketones 1+ (Negative) H 11/07/23 09:10 Urine Blood Neg (Negative) 11/07/23 09:10 Urine Nitrate Negative (Negative) 11/07/23 09:10 Urine Bilirubin Neg (Negative) 11/07/23 09:10 Urine Urobilinogen Norm mg/dL (Negative) 11/07/23 09:10 Ur Leukocyte Esterase Negative (Negative) 11/07/23 09:10 Ethyl Alcohol < 10 mg/dL (0-10) 11/06/23 15:10 Discharge Plan Discharge Patient Disposition: Admitted As Inpatient Clinical Impression: Acute necrotizing pancreatitis Condition: Stable Coding Level of Care Code ED Quality Analyst for Janneth Leone
[2023-11-06] MEDS: sodium chloride 0.9% 1,000 ML 999 ML IV (15:11)
[2023-11-06] MEDS: iohexol 350 mg/mL 500 mL Btl (per mL) IV (15:16)
[2023-11-06 15:18] LABS: Basophils # 0.1 10^3/uL (0.0-0.1); Basophils % 0.5 %; Eosinophils # 0.2 10^3/uL (0.0-0.8); Hematocrit 43.2 % (37-53); Lymphocytes # 1.7 10^3/uL (0.8-4.8); Lymphocytes % 10.6 %; Mean Corpuscular Hemoglobin 35.1 pg (27-33); Mean Corpuscular Volume 100.5 fl (82-101); Mean Platelet Volume 9.7 fL (7.4-10.4); Monocytes # 0.8 10^3/uL (0.2-0.9); Monocytes % 4.8 %; Neutrophils # 12.77 10^3/uL (1.8-7.7); Neutrophils % 81.7 %; Nucleated Red Blood Cells % 0 %; Platelet Count 416 10^3/cmm (157-399); Red Cell Distribution Width 13.3 % (12.1-15.1); White Blood Count 15.63 10^3/uL (3.29-11.43)
[2023-11-06 15:37] LABS: Alanine Aminotransferase 16 U/L (0-41); Albumin Level 3.8 g/dL (3.5-5.2); Alkaline Phosphatase 68 U/L (40-130); Anion Gap 17.5 (5-19); Aspartate Amino Transferase 17 U/L (0-40); Blood Urea Nitrogen 8 mg/dL (6-20); Calcium 8.8 mg/dL (8.5-10.5); Carbon Dioxide 25 mmol/L (22-29); Chloride 102 mmol/L (98-107); Creatinine Clr Calc Pharmacy 142.5522; Globulin 3.4 g/dL (1.3-4.6); Glomerular Filtration Rate 103.6 mL/min (90-130); Glucose 146 mg/dL (65-115); Osmolality Calculated 293 mOsm/kg (285-295); Potassium 3.5 mmol/L (3.5-5.1); Sodium 141 mmol/L (136-145); Total Bilirubin 0.3 mg/dL (0.15-1.2); Total Protein 7.2 g/dL (6.6-8.7); Triglycerides 116 mg/dL (0-150)
[2023-11-06 15:40] LABS: Alcohol Level < 10 mg/dL (0-10)
[2023-11-06 15:45] LABS: Lipase 456 U/L (13-60)
--- NOTE | 2023-11-06 16:49 | PC.NURSE ---
Antibiotic delayed d/t needing blood cultures drawn.
[2023-11-06 17:50] LABS: Lactic Sepsis W/Reflex 1.3 mmol/L (0.5-2.2)
[2023-11-06] MEDS: piperacillin-tazobactam 3.375 GM in sodium chloride 0.9% (plus) 50 ML IV (18:04)
[2023-11-06] MEDS: HYDROmorphone 1 mg/mL INJ 1 mL IVP (19:09)
[2023-11-07] VITALS (21 sets, daily range): BP systolic 124–169; BP diastolic 74–115; PULSE 60–91; RESP 16–20; TEMP 36.6; O2SAT 92–97
[2023-11-07] MEDS: HYDROmorphone 1 mg/mL INJ 1 mL IVP ×2 (00:27→05:35)
[2023-11-07] MEDS: piperacillin-tazobactam 3.375 GM in sodium chloride 0.9% (plus) 50 ML IV ×2 (00:28→07:27)
--- NOTE | 2023-11-07 05:43 | PC.NURSE ---
Dr Severino gave this nurse verbal order for 1mg Dilaudid IVP. Order put in per Dr Severino.
--- NOTE | 2023-11-07 05:45 | PC.NURSE ---
1000cc clear yellow urine emptied from patient's bedside urinal.
[2023-11-07 07:02] LABS: Basophils # 0.1 10^3/uL (0.0-0.1); Basophils % 0.3 %; Eosinophils # 0.2 10^3/uL (0.0-0.8); Eosinophils % 1.3 %; Hematocrit 40.8 % (37-53); Lymphocytes # 1.5 10^3/uL (0.8-4.8); Lymphocytes % 8.9 %; Mean Corpuscular HGB Conc 34.8 g/dL (30-55); Mean Corpuscular Hemoglobin 35.4 pg (27-33); Mean Corpuscular Volume 101.7 fl (82-101); Mean Platelet Volume 9.6 fL (7.4-10.4); Monocytes # 0.7 10^3/uL (0.2-0.9); Neutrophils % 84.7 %; Nucleated Red Blood Cells % 0 %; Platelet Count 349 10^3/cmm (157-399); Red Blood Count 4.01 10^6/uL (3.85-5.65); Red Cell Distribution Width 13.4 % (12.1-15.1); White Blood Count 16.88 10^3/uL (3.29-11.43)
[2023-11-07 07:17] LABS: Alanine Aminotransferase 14 U/L (0-41); Albumin Level 3.5 g/dL (3.5-5.2); Alkaline Phosphatase 60 U/L (40-130); Anion Gap 17.6 (5-19); Aspartate Amino Transferase 14 U/L (0-40); Blood Urea Nitrogen 5 mg/dL (6-20); Calcium 8.4 mg/dL (8.5-10.5); Carbon Dioxide 23 mmol/L (22-29); Chloride 103 mmol/L (98-107); Creatinine Clr Calc Pharmacy 162.9168; Globulin 3.1 g/dL (1.3-4.6); Glomerular Filtration Rate 120.9 mL/min (90-130); Glucose 109 mg/dL (65-115); Osmolality Calculated 288 mOsm/kg (285-295); Potassium 3.6 mmol/L (3.5-5.1); Sodium 140 mmol/L (136-145); Total Bilirubin 0.4 mg/dL (0.15-1.2); Total Protein 6.6 g/dL (6.6-8.7)
[2023-11-07] MEDS: sodium chlor 0.9% + KCl 20 mEq 20 MEQ/1,000 ML BAG 150 MEQ IV ×3 (07:27→20:14)
[2023-11-07] MEDS: HYDROmorphone 1 mg/mL INJ 1 mL 0.5 MG IVP ×5 (09:07→22:31)
[2023-11-07 09:23] LABS: Add Urine Microscopic? NO; Charge for UA Resulting for Rev
[2023-11-07 09:27] LABS: Bilirubin Urine Neg (Negative); Blood Urine Neg (Negative); Glucose Urine UA Norm (Normal); Ketones Urine 1+ (Negative); Leukocyte Esterase Urine Negative (Negative); Nitrate Urine Negative (Negative); Protein Urine Neg (Negative); Urine Appearance Clear (CLEAR); Urine Color Yellow (Yellow); Urobilinogen Urine Norm (Negative); pH Urine 7 (5-7)
--- NOTE | 2023-11-07 09:46 | PM.CONSULT ---
Providers/Reason For Consult Consulting Physician/Specialty*: Aaron Hagan MD, hospitalist Reason for Consult*: Necrotizing pancreatitis History of Present Illness History of Present Illness Xander Mcmillan is a 48 year old male with history of recent admission for pancreatitis and alcohol intake, October 27 through of this year. At that time triglycerides was checked and less than thousand, not thought to be contributory. He was treated for pain control at that time. As there was a possibility of necrotizing pancreatitis he was given meropenem. He was hydrated. With this treatment he got gradually better in the hospital. He was able to increase his diet, had less pain, and discharged on 10/30. He reports to me he did well as an outpatient for several days, but then had some return of discomfort, and some vomiting. He believes he may have had some fevers at home. He returned to the emergency department on 11/05. Repeat CT at that time demonstrated interval worsening of his pancreatitis with increasing fluid density in the body and tail of the pancreas consistent with necrotizing pancreatitis. Patient currently reports he has abdominal pain, left upper abdomen radiating to the back. He denies any nausea currently. He reports currently his pain control is not adequate. Review of Systems General: Reports: 10 or more systems reviewed and unremarkable except in HPI and below Medications/Allergies Home Medications Medication Instructions Recorded Confirmed Last Taken Type trazodone 50 mg tablet 50 mg PO BEDTIME 10/28/23 11/07/23 10/27/23 History ciprofloxacin HCl 500 mg tablet 500 mg PO BID #14 tabs 10/31/23 11/07/23 11/06/23 Rx docusate sodium 100 mg capsule 100 mg PO BID #30 caps 10/31/23 11/07/23 11/06/23 Rx (Colace) metronidazole 500 mg tablet 500 mg PO TID #21 tabs 10/31/23 11/07/23 11/06/23 Rx naloxone 4 mg/actuation nasal 4 mg intranasal Q2M PRN opioid 10/31/23 11/07/23 Unknown Rx spray (Narcan) overdose #2 ea oxycodone 5 mg tablet 5 mg PO Q4H PRN pain #20 tabs 10/31/23 11/07/23 11/06/23 Rx pantoprazole 40 mg tablet,delayed 40 mg PO DAILY #30 tabs 10/31/23 11/07/23 Unknown Rx release (Protonix) Allergies Allergy/AdvReac Type Severity Reaction Status Date / Time No Known Allergies Allergy Verified 11/06/23 13:38 Current Medications Generic Name Dose Route Start Last Admin Trade Name Frerayshawn PRN Reason Stop Dose Admin Potassium Chloride/Sodium Chloride 20 meq in 1,000 mls @ 150 mls/hr 11/07/23 06:45 11/07/23 07:27 Sodium Chlor 0.9% + Kcl 20 Meq IV 150 mls/hr .Q6H40M SHIRA Administration PFSH Acute PFSH: Medical History Pancreatitis Surgical History History of ear surgery Family History Other Cancer Social History Smoking and tobacco/nicotine status: current every day tobacco/nicotine user Alcohol intake: current Substance/Drug Use: never Vitals/I&O/Wt Last Vital Signs Temp 97.6 F 11/06/23 13:35 Pulse 73 11/07/23 09:09 Resp 18 11/07/23 09:09 BP 150/97 11/07/23 09:09 Pulse Ox 96 11/07/23 09:09 O2 Del Method Room Air 11/07/23 09:09 11/06/23 11/07/23 11/07/23 22:59 06:59 14:59 Intake Total 1050 / 1050 3179.78 / 4229.78 Balance 1050 / 1050 3179.78 / 4229.78 Weight last 48 hrs Weight 104.326 kg Physical Exam Narrative: General exam is a white male, no distress, but complaining of abdominal pain Neck is supple no lymphadenopathy thyromegaly Cardiovascular regular rate and rhythm without murmur Lungs clear Abdomen tender. A few bowel sounds are heard Extremities no cyanosis clubbing or edema Data 11/07/23 11:01 11/07/23 06:53 Other Labs: CT abdomen pelvis with increasing fluid in the body and tail of the pancreas consistent with necrotizing pancreatitis. I reviewed this as well Liver function tests are normal CRP which I ordered is 63 Albumin and calcium are normal Triglycerides done yesterday were 116 Lipase is 228 down from 456 Urinalysis is negative Alcohol level done yesterday was less than 10 Micro: Microbiology 11/06/23 17:53 Blood Culture - Preliminary Blood SPECIMEN COLLECTED 11/06/23 17:45 Blood Culture - Preliminary Blood SPECIMEN COLLECTED A&P Assessment and plan (1) Pancreatitis: There is concern for worsening of the patient's necrotic pancreatitis, with increasing fluid collection in the body and tail of the pancreas. He reports currently his pain control is not adequate. The emergency department physician has arranged for transfer, for specialty care at [facility]. This is appropriate as we do not have GI coverage here or interventional radiology. At this point we will discontinue his Zosyn, changed to meropenem for better coverage for necrotizing pancreatitis. Continue fluids per emergency department Continue Dilaudid for pain control, change interval to every 3 hours as needed Add Protonix for GI prophylaxis Add ondansetron for nausea control Qualifiers: Acute pancreatitis complication: infected necrosis Chronicity: acute Pancreatitis type: unspecified pancreatitis type Qualified Code(s): K85.92 - Acute pancreatitis with infected necrosis, unspecified Plan History of alcohol intake. He reports no alcohol intake since his last hospital stay. Nicotine dependency Thank you for this consult I will continue to follow with you Should he not transfer by tomorrow, appropriate lab have been ordered. Diagnoses Pancreatitis K85.92 Acute pancreatitis complication: infected necrosis Chronicity: acute Pancreatitis type: unspecified pancreatitis type Time Spent (min) 35
[2023-11-07 09:57] LABS: C Reactive Protein 63.1 mg/L (0.0-4.9)
[2023-11-07] MEDS: pantoprazole 40 mg SDV IVP ×2 (10:32→21:24)
[2023-11-07] MEDS: meropenem 1,000 mg SDV 1000 MG IVP ×2 (10:36→17:46)
[2023-11-07 11:05] LABS: Basophils # 0.1 10^3/uL (0.0-0.1); Basophils % 0.4 %; Eosinophils # 0.2 10^3/uL (0.0-0.8); Eosinophils % 1.3 %; Lymphocytes # 1.7 10^3/uL (0.8-4.8); Lymphocytes % 10.7 %; Mean Corpuscular HGB Conc 32.7 g/dL (30-55); Mean Corpuscular Hemoglobin 36.4 pg (27-33); Mean Corpuscular Volume 111.4 fl (82-101); Mean Platelet Volume 9.6 fL (7.4-10.4); Monocytes # 0.7 10^3/uL (0.2-0.9); Monocytes % 4.6 %; Neutrophils # 12.68 10^3/uL (1.8-7.7); Neutrophils % 82.3 %; Nucleated Red Blood Cells % 0 %; Platelet Count 319 10^3/cmm (157-399); Red Blood Count 3.68 10^6/uL (3.85-5.65); Red Cell Distribution Width 13.6 % (12.1-15.1); White Blood Count 15.41 10^3/uL (3.29-11.43)
[2023-11-07 11:14] LABS: Lipase 228 U/L (13-60)
[2023-11-07] MEDS: nicotine 21 mg Patch 1 PATCH TRANSDERMA (12:30)
--- NOTE | 2023-11-07 13:47 | ECG_ITS ---
[facility] Test Date: 2023-11-06 Pat Name: Xander Mcmillan Department: Room: Gender: Male [employer]: : 1975 Requested By: Hubert Cao Order Number: [id number] Qian MD: Mary Asif M.D. Measurements Intervals [place] Rate: 79 P: 67 FL: 156 QRS: 50 QRSD: 84 T: -17 QT: 364 QTc: 419 Interpretive Statements SINUS RHYTHM WITH SINUS ARRHYTHMIA NONSPECIFIC ST & T-WAVE ABNORMALITY Compared to ECG 10/28/2023 14:37:49 No significant changes Electronically Signed On 11-07-2023 22:24:39 CDT by Mary Asif M.D. [id number]
[2023-11-07] MEDS: enoxaparin 40 mg/0.4 mL Syringe SUBCUT (17:46)
[2023-11-07 17:51] LABS: Lactic Sepsis W/Reflex 0.8 mmol/L (0.5-2.2)
[2023-11-07 18:02] LABS: Procalcitonin 0.04 ng/mL (0-0.5); Thyroid Stimulating Hormone 1.56 uIU/mL (0.27-4.20)
[2023-11-07 18:13] LABS: Chol HDL Ratio 4.21 mg/dL (1.0-5.00); Cholesterol 118 mg/dL (0-200); HDL Cholesterol 28 mg/dL (60-100); LDL Cholesterol Calculated 67 mg/dL (50-129); LDL HDL Ratio 2.39 RATIO (0.00-3.22); Triglycerides 113 mg/dL (0-150)
[2023-11-07 18:19] LABS: Alcohol Level < 10 mg/dL (0-10)
[2023-11-07 19:24] LABS: Amphetamines Screen Urine Negative (Negative); Barbiturates Screen Urine Negative (Negative); Benzodiazepines Screen Urine Negative (Negative); Cocaine Screen Urine Negative (Negative); Opiate Screen Urine Positive (Negative); PCP Screen Urine Negative (Negative); THC Screen Urine Negative (Negative)
[2023-11-07 23:02] LABS: Estmated Average Glucose 91; Hemoglobin A1C 4.8 % (4.0-6.0)
[2023-11-08] VITALS (18 sets, daily range): BP systolic 123–157; BP diastolic 77–98; PULSE 74–86; RESP 16–18; TEMP 36.4–37; O2SAT 95–97
[2023-11-08] MEDS: HYDROmorphone 1 mg/mL INJ 1 mL 0.5 MG IVP ×6 (00:43→20:14)
[2023-11-08] MEDS: meropenem 1,000 mg SDV 1000 MG IVP ×3 (00:45→17:30)
[2023-11-08] MEDS: sodium chlor 0.9% + KCl 20 mEq 20 MEQ/1,000 ML BAG 150 MEQ IV ×3 (02:45→20:20)
[2023-11-08 06:40] LABS: Basophils % 0.4 %; Eosinophils # 0.2 10^3/uL (0.0-0.8); Eosinophils % 1.5 %; Hematocrit 40.3 % (37-53); Lymphocytes # 1.5 10^3/uL (0.8-4.8); Lymphocytes % 14.6 %; Mean Corpuscular HGB Conc 34.5 g/dL (30-55); Mean Corpuscular Hemoglobin 35.6 pg (27-33); Mean Corpuscular Volume 103.3 fl (82-101); Mean Platelet Volume 9.3 fL (7.4-10.4); Monocytes # 0.5 10^3/uL (0.2-0.9); Monocytes % 4.5 %; Neutrophils # 7.89 10^3/uL (1.8-7.7); Nucleated Red Blood Cells % 0 %; Platelet Count 316 10^3/cmm (157-399); Red Cell Distribution Width 13.2 % (12.1-15.1)
[2023-11-08 07:11] LABS: Alanine Aminotransferase 12 U/L (0-41); Albumin Level 3.3 g/dL (3.5-5.2); Anion Gap 16.9 (5-19); Aspartate Amino Transferase 12 U/L (0-40); Blood Urea Nitrogen 6 mg/dL (6-20); Calcium 8.4 mg/dL (8.5-10.5); Carbon Dioxide 22 mmol/L (22-29); Chloride 103 mmol/L (98-107); Creatinine Clr Calc Pharmacy 153.8774; Globulin 3.1 g/dL (1.3-4.6); Glomerular Filtration Rate 120.9 mL/min (90-130); Glucose 81 mg/dL (65-115); Osmolality Calculated 283 mOsm/kg (285-295); Phosphorus 2.9 mg/dL (2.5-4.5); Potassium 3.9 mmol/L (3.5-5.1); Sodium 138 mmol/L (136-145); Total Bilirubin 0.3 mg/dL (0.15-1.2); Total Protein 6.4 g/dL (6.6-8.7)
[2023-11-08 07:12] LABS: Alkaline Phosphatase 58 U/L (40-130)
[2023-11-08] MEDS: pantoprazole 40 mg SDV IVP ×2 (10:43→22:14)
[2023-11-08] MEDS: oxyCODONE-APAP 5-325 mg Tablet 1 TAB PO ×3 (10:43→22:32)
[2023-11-08] MEDS: water for injection-sterile 20 ML 240 ML ×2 (11:00→17:30)
--- NOTE | 2023-11-08 13:23 | P.PN_ITS ---
Subjective 2 Subjective: He has been bothered by quite a bit of pain, hydromorphone alone is not working for him and he wants to try to intersperse the IV medication with oral oxycodone the way he had a during last admission which worked better for him. Still having significant pain, no vomiting. Insists on trying something by mouth, discussed with him risks given acute pancreatitis, he states he understands, states that he will not push the trial, let us know in case of worsening. Vitals/I&O/Wt Last Vital Signs Temp 97.8 F 11/08/23 11:31 Pulse 75 11/08/23 11:31 Resp 17 11/08/23 11:31 BP 131/83 11/08/23 11:31 Pulse Ox 95 11/08/23 11:31 O2 Del Method Room Air 11/08/23 11:31 11/07/23 11/08/23 11/08/23 22:59 06:59 14:59 Intake Total 455 / 1505 1477.5 / 2982.5 1380 / 1380 Output Total 1100 / 1100 Balance -645 / 405 1477.5 / 1882.5 1380 / 1380 Weight last 48 hrs Weight 92.079 kg Weight 103.873 kg Weight 104.326 kg Physical Exam 2 Const: COMMON NORMALS: patient oriented x3 and alert GENERAL APPEARANCE: c ooperative ORIENTATION/CONSCIOUSNESS: Yes awake HENMT: COMMON NORMALS: oropharynx normal Neck/C-Spine: COMMON NORMALS: no JVD Resp: COMMON NORMALS: normal respiratory effort and clear to auscultation bilaterally AUSCULTATION: clear to auscultation bilaterally Cardio: COMMON NORMALS: no JVD, regular rhythm, S1 normal heart sound present, S2 normal heart sound present and No murmurs present (Cardio) RHYTHM: regular rhythm HEART SOUNDS: S1 normal heart sound present and S2 normal heart sound present GI: COMMON NORMALS: Normal to inspection, nondistended, normoactive bowel sounds present and Soft to palpation PALPATION: Yes Soft to palpation and Yes Tenderness to palpation present (GI) Extremity: COMMON NORMALS: no joint enlargement and no pedal edema Neuro: COMMON NORMALS: patient oriented x3 and moves all extremities S ENSORIUM/ORIENTATION: Yes alert Skin: COMMON NORMALS: no rashes or lesions noted GENERAL SKIN EXAM: no rashes or lesions noted OTHER: Tattoos. Data 11/08/23 06:33 11/08/23 06:33 Micro: Microbiology 11/06/23 17:53 Blood Culture - Preliminary Blood NEGATIVE TO DATE 11/06/23 17:45 Blood Culture - Preliminary Blood NEGATIVE TO DATE A&P Assessment and plan (1) Pancreatitis: Reviewed vitals, CBC, CMP, requesting lipase reassessment. He is still having significant pain, states Dilaudid by itself is not working well and he would like to try to titrate Versed with oral medication with oxycodone. Adding oxycodone, will try to see if it may help him reduce need for parenteral opioid. He otherwise also is strongly insistent that he would want some oral intake, starting trial of clear liquids. Discussed with him leukocytosis has improved, however, discussed still significant finding on CT with appearance of pancreatic necrosis. Suspected phlegmon or developing abscesses. He tells me he is awaiting transfer to [place] for further assess and management. Discussed with case advocate. Continue antiemetic, Protonix. Continue empiric antibiotic coverage with meropenem. Monitor for risk of seizure. Reduce IV fluid rate. Qualifiers: Acute pancreatitis complication: infected necrosis Chronicity: acute P ancreatitis type: unspecified pancreatitis type Qualified Code(s): K85.92 - Acute pancreatitis with infected necrosis, unspecified Plan History of alcohol intake. Discussed with him importance from abstinence from any alcohol whatsoever given risk of recurrent pancreatitis, risk of severe pancreatitis, risk of chronic pancreatitis. He verbalized understanding. He reports no alcohol intake since his last hospital stay. Nicotine dependency Thank you for this consult I will continue to follow with you Should he not transfer by tomorrow, appropriate lab have been ordered. Attestations 2 Medical Necessity Statement*: Continue admission for assessment management of complicated pancreatitis with pancreatic necrosis, suspected phlegmon/abscesses. Pending transfer to tertiary facility for further assessment and management. Diagnoses Pancreatitis K85.92 Acute pancreatitis complication: infected necrosis Chronicity: acute Pancreatitis type: unspecified pancreatitis type
[2023-11-08] MEDS: enoxaparin 40 mg/0.4 mL Syringe SUBCUT (17:30)
[2023-11-09] VITALS (19 sets, daily range): BP systolic 125–164; BP diastolic 60–107; PULSE 59–80; RESP 14–20; TEMP 36.6–37; O2SAT 93–98
[2023-11-09] MEDS: meropenem 1,000 mg SDV 1000 MG IVP ×3 (01:12→17:26)
[2023-11-09] MEDS: HYDROmorphone 1 mg/mL INJ 1 mL 0.5 MG IVP ×5 (02:17→23:03)
[2023-11-09] MEDS: oxyCODONE-APAP 5-325 mg Tablet 1 TAB PO ×5 (03:51→21:26)
[2023-11-09 04:01] LABS: Basophils # 0.1 10^3/uL (0.0-0.1); Basophils % 0.9 %; Eosinophils # 0.2 10^3/uL (0.0-0.8); Eosinophils % 2.3 %; Hematocrit 39.7 % (37-53); Lymphocytes # 1.6 10^3/uL (0.8-4.8); Lymphocytes % 20.7 %; Mean Corpuscular Hemoglobin 35.2 pg (27-33); Mean Corpuscular Volume 103.7 fl (82-101); Mean Platelet Volume 9.6 fL (7.4-10.4); Monocytes # 0.4 10^3/uL (0.2-0.9); Monocytes % 4.4 %; Neutrophils # 5.63 10^3/uL (1.8-7.7); Neutrophils % 70.8 %; Nucleated Red Blood Cells % 0 %; Platelet Count 339 10^3/cmm (157-399); Red Blood Count 3.83 10^6/uL (3.85-5.65); Red Cell Distribution Width 12.9 % (12.1-15.1); White Blood Count 7.94 10^3/uL (3.29-11.43)
[2023-11-09 04:29] LABS: Alanine Aminotransferase 12 U/L (0-41); Albumin Level 3.2 g/dL (3.5-5.2); Alkaline Phosphatase 52 U/L (40-130); Anion Gap 13.9 (5-19); Aspartate Amino Transferase 12 U/L (0-40); Blood Urea Nitrogen 5 mg/dL (6-20); Calcium 8.4 mg/dL (8.5-10.5); Carbon Dioxide 23 mmol/L (22-29); Chloride 107 mmol/L (98-107); Creatinine Clr Calc Pharmacy 153.8774; Globulin 2.9 g/dL (1.3-4.6); Glomerular Filtration Rate 120.9 mL/min (90-130); Glucose 121 mg/dL (65-115); Lipase 132 U/L (13-60); Osmolality Calculated 289 mOsm/kg (285-295); Potassium 3.9 mmol/L (3.5-5.1); Sodium 140 mmol/L (136-145); Total Bilirubin 0.2 mg/dL (0.15-1.2); Total Protein 6.1 g/dL (6.6-8.7)
[2023-11-09] MEDS: sodium chlor 0.9% + KCl 20 mEq 20 MEQ/1,000 ML BAG 100 MEQ IV ×2 (05:19→23:32)
--- NOTE | 2023-11-09 09:05 | MRR_ITS ---
PROCEDURE INFORMATION: Exam: MR Abdomen Without Contrast, Biliary System Exam date and time: 11/09/2023 12:13 PM Age: 48 years old Clinical indication: Abdominal pain; Epigastric; Additional info: Reassessment of possible pancreatic phlegmon/abscesses. HX of pancreatitis TECHNIQUE: Imaging protocol: MR of the abdomen without contrast. Exam focused on the biliary system and pancreatic ducts. Routine 3D-MRCP images were acquired and processed without radiologist supervision. COMPARISON: CT abdomen pelvis w con* [id number] 11/06/2023 3:14 PM FINDINGS: Pleural spaces: Small bilateral pleural effusions. Liver: No significant liver pathology. Gallbladder and biliary ducts: No significant gallbladder pathology. No biliary dilatation. Small gallbladder polyp versus calculus measuring 3 mm seen on series 701, image 24. Common duct calculus is evident.No significant renal pathology. Pancreas: There is a enlargement and abnormal T2 hyperintensity in the distal pancreatic body and tail (series 701, image 24. Fluid surrounding the distal pancreas both anteriorly and posteriorly is again seen without well-defined wall in this limited assessment. No pancreatic ductal dilatation evident. Spleen: No significant splenic pathology. Adrenal glands: No significant adrenal pathology. Intraperitoneal space: No fluid collection. Lymph nodes: No evidence of lymphadenopathy. MR/MR MRCP [id number] IMPRESSION: 1. Evaluation limited by technique. 2. Abnormal appearance of the distal pancreas consistent with features of necrosis seen on prior CT. For more detailed assessment of extent of necrosis, repeat study utilizing IV contrast and postcontrast subtraction views recommended. 3. Fluid collection surrounding the distal pancreas consistent with acute peripancreatic collection; again, for assessment of possible acute necrotic collection, which is a pancreatic parenchymal finding, repeat study utilizing contrast with subtraction views recommended. 4. Small solitary gallbladder polyp versus calculus. No evidence of biliary dilatation. 5. Small bilateral pleural effusions.
--- NOTE | 2023-11-09 09:09 | P.PN_ITS ---
Subjective 2 Subjective: He reports he is still sore. Still hurting, abdominal pain predominantly upper left abdomen, however, the entire abdomen is not somewhat affected. He is doing okay otherwise. No fever or chills, no nausea vomiting, no diarrhea, no bleeding. He is tolerating clear liquids just does not enjoy the taste. He would like to try to advance further to full liquids. Vitals/I&O/Wt Last Vital Signs Temp 98.3 F 11/09/23 07:20 Pulse 80 11/09/23 07:20 Resp 16 11/09/23 07:51 BP 138/83 11/09/23 07:20 Pulse Ox 97 11/09/23 07:20 O2 Del Method Room Air 11/09/23 07:20 11/08/23 11/09/23 11/09/23 22:59 06:59 14:59 Intake Total 1467.5 / 2847.5 672.5 / 3520.0 Output Total 650 / 650 925 / 1575 Balance 817.5 / 2197.5 -252.5 / 1945.0 Weight last 48 hrs Weight 105.551 kg Weight 92.079 kg Weight 103.873 kg Physical Exam 2 Const: COMMON NORMALS: patient oriented x3 and alert GENERAL APPEARANCE: c ooperative ORIENTATION/CONSCIOUSNESS: Yes awake HENMT: COMMON NORMALS: oropharynx normal Neck/C-Spine: COMMON NORMALS: no JVD Resp: COMMON NORMALS: normal respiratory effort and clear to auscultation bilaterally AUSCULTATION: clear to auscultation bilaterally Cardio: COMMON NORMALS: no JVD, regular rhythm, S1 normal heart sound present, S2 normal heart sound present and No murmurs present (Cardio) RHYTHM: regular rhythm HEART SOUNDS: S1 normal heart sound present and S2 normal heart sound present GI: COMMON NORMALS: Normal to inspection, nondistended, normoactive bowel sounds present and Soft to palpation PALPATION: Yes Soft to palpation and Yes Tenderness to palpation present (GI) Details: LUQ and other (Tenderness in the large radius surrounding the umbilicus) Extremity: COMMON NORMALS: no joint enlargement and no pedal edema Neuro: COMMON NORMALS: patient oriented x3 and moves all extremities S ENSORIUM/ORIENTATION: Yes alert Skin: COMMON NORMALS: no rashes or lesions noted GENERAL SKIN EXAM: no rashes or lesions noted Data 11/09/23 03:21 11/09/23 03:21 A&P Assessment and plan (1) Pancreatitis: Reviewed vitals, CBC, CMP, lipase, blood culture. He is afebrile, leukocytosis has resolved. Lipase is improving. Or, he is still having significant pain not helped entirely by the current regimen, he states that the medication is not lasting long enough for him. Discussed increasing frequency, increase Dilaudid IV for severe pain to every 3 hours. Also continuing on oxycodone every 4 hours for moderate pain. Continue Tylenol as needed. Zofran as needed for nausea. He states he is has been tolerating oral intake, would like to advance to full liquids. Will trial. Follow-up CBC, CMP, lipase, vitals. Additionally discussed with him requesting MRCP elbow as per discussion I am not sure it is currently available on the weekend. We will request a test to get a clear picture of the collections noted on CT with concern for phlegmon/abscess. Discussed with radiologist. Somewhat equivocal findings, without clear abscess. Clinically WBC, lipase have shown improvement. He is on IV meropenem. There is no rind or enhancement but a collection is present and is also in the proximity of the stomach. MRCP would be helpful in further delineating findings. Requested. Awaiting transfer to [place] for further assess and management. Discussed with family checked up on him this morning. Continue antiemetic, Protonix. Continue empiric antibiotic coverage with meropenem. Monitor for risk of seizure. IV fluid Qualifiers: Acute pancreatitis complication: infected necrosis Chronicity: acute P ancreatitis type: unspecified pancreatitis type Qualified Code(s): K85.92 - Acute pancreatitis with infected necrosis, unspecified Plan History of alcohol intake. Discussed with him importance from abstinence from any alcohol whatsoever given risk of recurrent pancreatitis, risk of severe pancreatitis, risk of chronic pancreatitis. He verbalized understanding. He reports no alcohol intake since his last hospital stay. Nicotine dependency: Will make available nicotine replacement as needed. Attestations 2 Medical Necessity Statement*: Continue admission for assessment management of complicated pancreatitis with necrotizing pancreatitis with phlegmon/abscess, persistent pain requiring parenteral pain medication. Diagnoses Pancreatitis K85.92 Acute pancreatitis complication: infected necrosis Chronicity: acute Pancreatitis type: unspecified pancreatitis type
[2023-11-09] MEDS: water for injection-sterile 20 ML 240 ML ×2 (09:55→17:26)
[2023-11-09] MEDS: pantoprazole 40 mg SDV IVP ×2 (09:55→21:00)
[2023-11-09] MEDS: sucralfate 1 gm Tablet PO ×3 (11:01→21:00)
--- NOTE | 2023-11-09 16:31 | PC.NURSE ---
[facility] called an there will not be a bed available today maybe tomorrow.
--- NOTE | 2023-11-09 16:46 | PICC.NOTE ---
Referred to vascular access nurse due to no IV access. Discussed with patient and patient care nurse options for PICC line versus midline versus US guided IV. No clinical indication for a PICC line at this time. IV access needed for pain medication and Meropenem. Pt awaiting transfer to [place]. Pt noted to have good peripheral veins upon US assessment. 20 guage IV started to right forearm x 1 stick. Pt tolerated well. Report given to bedside nurse, Clary.
[2023-11-09] MEDS: enoxaparin 40 mg/0.4 mL Syringe SUBCUT (17:33)
[2023-11-09] MEDS: nicotine 21 mg Patch 1 PATCH TRANSDERMA (21:00)
[2023-11-10] VITALS (20 sets, daily range): BP systolic 135–144; BP diastolic 84–90; PULSE 63–80; RESP 14–19; TEMP 36.4–36.8; O2SAT 93–97
[2023-11-10] MEDS: meropenem 1,000 mg SDV 1000 MG IVP ×3 (01:36→17:53)
[2023-11-10] MEDS: oxyCODONE-APAP 5-325 mg Tablet 1 TAB PO ×6 (01:49→23:34)
[2023-11-10] MEDS: HYDROmorphone 1 mg/mL INJ 1 mL 0.5 MG IVP ×5 (03:37→20:53)
[2023-11-10 04:06] LABS: Basophils # 0.1 10^3/uL (0.0-0.1); Eosinophils # 0.2 10^3/uL (0.0-0.8); Eosinophils % 2.8 %; Hematocrit 39.9 % (37-53); Lymphocytes # 1.8 10^3/uL (0.8-4.8); Lymphocytes % 25.7 %; Mean Corpuscular HGB Conc 33.8 g/dL (30-55); Mean Corpuscular Volume 103.4 fl (82-101); Mean Platelet Volume 9.8 fL (7.4-10.4); Monocytes # 0.3 10^3/uL (0.2-0.9); Neutrophils % 64.6 %; Nucleated Red Blood Cells % 0 %; Platelet Count 350 10^3/cmm (157-399); Red Blood Count 3.86 10^6/uL (3.85-5.65); Red Cell Distribution Width 12.9 % (12.1-15.1); White Blood Count 6.81 10^3/uL (3.29-11.43)
[2023-11-10 04:22] LABS: Alanine Aminotransferase 13 U/L (0-41); Albumin Level 3.2 g/dL (3.5-5.2); Alkaline Phosphatase 55 U/L (40-130); Anion Gap 13.2 (5-19); Aspartate Amino Transferase 14 U/L (0-40); Blood Urea Nitrogen 7 mg/dL (6-20); Calcium 8.7 mg/dL (8.5-10.5); Carbon Dioxide 25 mmol/L (22-29); Chloride 104 mmol/L (98-107); Creatinine Clr Calc Pharmacy 143.0799; Glomerular Filtration Rate 103.6 mL/min (90-130); Glucose 93 mg/dL (65-115); Lipase 110 U/L (13-60); Osmolality Calculated 284 mOsm/kg (285-295); Potassium 4.2 mmol/L (3.5-5.1); Sodium 138 mmol/L (136-145); Total Bilirubin 0.2 mg/dL (0.15-1.2); Total Protein 6.2 g/dL (6.6-8.7)
[2023-11-10] MEDS: sucralfate 1 gm Tablet PO ×4 (06:32→20:54)
[2023-11-10] MEDS: pantoprazole 40 mg SDV IVP ×2 (09:13→20:54)
[2023-11-10] MEDS: sodium chlor 0.9% + KCl 20 mEq 20 MEQ/1,000 ML BAG 100 MEQ IV ×2 (09:27→19:29)
[2023-11-10] MEDS: enoxaparin 40 mg/0.4 mL Syringe SUBCUT (17:53)
--- NOTE | 2023-11-10 21:11 | P.PN_ITS ---
Subjective 2 Subjective: He is still bothered by abdominal pain, central upper radiating to left upper quadrant. Vitals/I&O/Wt Last Vital Signs Temp 98.1 F 11/10/23 19:58 Pulse 66 11/10/23 19:58 Resp 19 H 11/10/23 20:53 BP 144/89 11/10/23 19:58 Pulse Ox 93 11/10/23 20:53 O2 Del Method Room Air 11/10/23 19:58 11/10/23 11/10/23 11/10/23 06:59 14:59 22:59 Intake Total 421.667 / 8433.984 0231.667 / 8575.639 5786 / 2591.667 Output Total 950 / 1500 1200 / 1200 600 / 1800 Balance -528.333 / 260.000 31.667 / 31.667 760 / 791.667 Weight last 48 hrs Weight 105.143 kg Weight 105.551 kg Physical Exam 2 Const: COMMON NORMALS: patient oriented x3 and alert GENERAL APPEARANCE: c ooperative ORIENTATION/CONSCIOUSNESS: Yes awake HENMT: COMMON NORMALS: oropharynx normal Neck/C-Spine: COMMON NORMALS: no JVD Resp: COMMON NORMALS: normal respiratory effort and clear to auscultation bilaterally AUSCULTATION: clear to auscultation bilaterally Cardio: COMMON NORMALS: no JVD, regular rhythm, S1 normal heart sound present, S2 normal heart sound present and No murmurs present (Cardio) RHYTHM: regular rhythm HEART SOUNDS: S1 normal heart sound present and S2 normal heart sound present GI: COMMON NORMALS: Normal to inspection, nondistended, normoactive bowel sounds present and Soft to palpation PALPATION: Yes Soft to palpation and Yes Tenderness to palpation present (GI) Extremity: COMMON NORMALS: no joint enlargement and no pedal edema Neuro: COMMON NORMALS: patient oriented x3 and moves all extremities S ENSORIUM/ORIENTATION: Yes alert Skin: COMMON NORMALS: no rashes or lesions noted GENERAL SKIN EXAM: no rashes or lesions noted Data 11/10/23 03:35 11/10/23 03:35 A&P Assessment and plan (1) Pancreatitis: Reviewed vitals, CBC, CMP, lipase. Reviewed MRCP, discussed with [facility] radiologist. Some confirmation of necrosis on MRCP. No obvious abscess, but does not exclude infection, contrast also not likely to be able to rule out infection if some were present without obvious changes like abscess. Discussed with patient. He is awaiting assessment by specialist at tertiary center, [facility] has been calling, there was some thought of possibly having an opening today, but seems not so far. Reached out also to [facility], he was found to be too high acuity for mobile up and 1 other facility, although wait time at [facility] seems he is even longer than [facility]. He is afebrile, leukocytosis has resolved. Lipase is improving. Or, he is still having significant pain not helped entirely by the current regimen, he states that the medication is not lasting long enough for him. Discussed increasing frequency, continue Dilaudid IV for severe pain to every 3 hours. Also continuing on oxycodone every 4 hours for moderate pain. Continue Tylenol as needed. Zofran as needed for nausea. He is been tolerating oral intake. Continue antiemetic, Protonix. Continue empiric antibiotic coverage with meropenem. Monitor for risk of seizure. Stop IV fluid Qualifiers: Acute pancreatitis complication: infected necrosis Chronicity: acute P ancreatitis type: unspecified pancreatitis type Qualified Code(s): K85.92 - Acute pancreatitis with infected necrosis, unspecified Plan History of alcohol intake. Discussed with him importance from abstinence from any alcohol whatsoever given risk of recurrent pancreatitis, risk of severe pancreatitis, risk of chronic pancreatitis. He verbalized understanding. He reports no alcohol intake since his last hospital stay. Nicotine dependency: Will make available nicotine replacement as needed. Attestations 2 Medical Necessity Statement*: Continue admission for assessment management of complicated pancreatitis with necrotizing pancreatitis with phlegmon/abscess, persistent pain requiring parenteral pain medication. and High MDM includes amount and/or complexity of data reviewed/ordered [ resulted lab(s)/test(s), ordered lab(s)/test(s) and other healthcare professional discussion] and described risk of complication, morbidity or mortality of management as documented Diagnoses Pancreatitis K85.92 Acute pancreatitis complication: infected necrosis Chronicity: acute Pancreatitis type: unspecified pancreatitis type
[2023-11-11] VITALS (17 sets, daily range): BP systolic 125–144; BP diastolic 73–90; PULSE 61–70; RESP 14–19; TEMP 36.3–36.9; O2SAT 92–97
[2023-11-11] MEDS: HYDROmorphone 1 mg/mL INJ 1 mL 0.5 MG IVP ×6 (01:09→23:11)
[2023-11-11] MEDS: meropenem 1,000 mg SDV 1000 MG IVP ×3 (01:10→17:04)
[2023-11-11 04:37] LABS: Basophils # 0.1 10^3/uL (0.0-0.1); Basophils % 0.9 %; Eosinophils # 0.2 10^3/uL (0.0-0.8); Lymphocytes # 1.5 10^3/uL (0.8-4.8); Mean Corpuscular HGB Conc 34.6 g/dL (30-55); Mean Corpuscular Hemoglobin 35.5 pg (27-33); Mean Corpuscular Volume 102.5 fl (82-101); Mean Platelet Volume 9.5 fL (7.4-10.4); Monocytes # 0.4 10^3/uL (0.2-0.9); Monocytes % 5.8 %; Neutrophils # 4.56 10^3/uL (1.8-7.7); Neutrophils % 67.4 %; Nucleated Red Blood Cells % 0 %; Platelet Count 387 10^3/cmm (157-399); Red Cell Distribution Width 12.7 % (12.1-15.1); White Blood Count 6.76 10^3/uL (3.29-11.43)
[2023-11-11 04:59] LABS: Alanine Aminotransferase 15 U/L (0-41); Albumin Level 3.3 g/dL (3.5-5.2); Alkaline Phosphatase 60 U/L (40-130); Anion Gap 16.1 (5-19); Aspartate Amino Transferase 15 U/L (0-40); Blood Urea Nitrogen 6 mg/dL (6-20); Calcium 8.9 mg/dL (8.5-10.5); Carbon Dioxide 23 mmol/L (22-29); Chloride 104 mmol/L (98-107); Creatinine Clr Calc Pharmacy 163.2851; Globulin 3.4 g/dL (1.3-4.6); Glomerular Filtration Rate 120.9 mL/min (90-130); Glucose 112 mg/dL (65-115); Lipase 86 U/L (13-60); Osmolality Calculated 286 mOsm/kg (285-295); Potassium 4.1 mmol/L (3.5-5.1); Sodium 139 mmol/L (136-145); Total Bilirubin 0.3 mg/dL (0.15-1.2); Total Protein 6.7 g/dL (6.6-8.7)
[2023-11-11] MEDS: sucralfate 1 gm Tablet PO ×4 (06:44→20:10)
[2023-11-11] MEDS: nicotine 21 mg Patch 1 PATCH TRANSDERMA (08:28)
[2023-11-11] MEDS: oxyCODONE-APAP 5-325 mg Tablet 1 TAB PO ×4 (08:28→22:08)
[2023-11-11] MEDS: pantoprazole 40 mg SDV IVP ×2 (08:28→20:10)
--- NOTE | 2023-11-11 11:06 | P.PN_ITS ---
Subjective 2 Subjective: Xander reports he still having significant pain in his upper abdomen as well as left side going to his back. Still some nausea but able to drink. Is having bowel movements. No chills. Medications: Reviewed: Yes Vitals/I&O/Wt Last Vital Signs Temp 97.8 F 11/11/23 07:34 Pulse 70 11/11/23 07:34 Resp 18 11/11/23 08:28 BP 129/82 11/11/23 07:34 Pulse Ox 95 11/11/23 08:28 O2 Del Method Room Air 11/11/23 07:34 11/10/23 11/11/23 11/11/23 22:59 06:59 14:59 Intake Total 2360 / 3591.667 480 / 480 Output Total 600 / 1800 950 / 2750 Balance 1760 / 1791.667 -950 / 841.667 480 / 480 Weight last 48 hrs Weight 104.825 kg Weight 105.143 kg Physical Exam 2 Narrative: General exam no distress Neck is supple Cardiovascular regular rate and rhythm Lungs clear Abdomen tender, epigastric and left side. Bowel sounds noted Extremities no cyanosis clubbing edema Data 11/11/23 04:03 11/11/23 04:03 A&P Assessment and plan (1) Pancreatitis: CT and MRCP consistent with necrotizing pancreatitis with significant fluid collection. He is now become afebrile, and leukocytosis has resolved He continues to have significant pain, requiring IV narcotics He is able to ingest fluids currently. He does not really want to advance his diet significantly. He would still like to see specialized care, in regards to his complicated pancreatitis with necrosis Continue meropenem Continue Dilaudid, oxycodone Triglycerides were checked and not significantly elevated. Qualifiers: Acute pancreatitis complication: infected necrosis Chronicity: acute P ancreatitis type: unspecified pancreatitis type Qualified Code(s): K85.92 - Acute pancreatitis with infected necrosis, unspecified Plan History of alcohol intake. Discussed with him importance from abstinence from any alcohol whatsoever given risk of recurrent pancreatitis, risk of severe pancreatitis, risk of chronic pancreatitis. He verbalized understanding. He reports no alcohol intake since his last hospital stay. Nicotine dependency: Will make available nicotine replacement as needed. Attestations 2 Medical Necessity Statement*: Needs continued hospitalization secondary to acute necrotizing pancreatitis with need for IV antibiotics as well as pain control Diagnoses Pancreatitis K85.92 Acute pancreatitis complication: infected necrosis Chronicity: acute Pancreatitis type: unspecified pancreatitis type Time Spent (min) 21
[2023-11-11] MEDS: enoxaparin 40 mg/0.4 mL Syringe SUBCUT (17:04)
[2023-11-12] VITALS (17 sets, daily range): BP systolic 113–131; BP diastolic 71–86; PULSE 62–84; RESP 14–18; TEMP 36.1–36.8; O2SAT 92–95
[2023-11-12] MEDS: meropenem 1,000 mg SDV 1000 MG IVP ×3 (01:51→16:10)
[2023-11-12] MEDS: oxyCODONE-APAP 5-325 mg Tablet 1 TAB PO ×3 (01:51→16:10)
[2023-11-12] MEDS: HYDROmorphone 1 mg/mL INJ 1 mL 0.5 MG IVP ×5 (04:09→17:53)
[2023-11-12 04:15] LABS: Basophils # 0.1 10^3/uL (0.0-0.1); Basophils % 1.1 %; Eosinophils # 0.2 10^3/uL (0.0-0.8); Eosinophils % 2.7 %; Hematocrit 42.9 % (37-53); Lymphocytes # 1.6 10^3/uL (0.8-4.8); Lymphocytes % 25.8 %; Mean Corpuscular Hemoglobin 34.8 pg (27-33); Mean Corpuscular Volume 102.4 fl (82-101); Mean Platelet Volume 9.3 fL (7.4-10.4); Monocytes # 0.3 10^3/uL (0.2-0.9); Monocytes % 4.7 %; Neutrophils # 4.03 10^3/uL (1.8-7.7); Neutrophils % 65.1 %; Nucleated Red Blood Cells % 0 %; Platelet Count 367 10^3/cmm (157-399); Red Blood Count 4.19 10^6/uL (3.85-5.65); Red Cell Distribution Width 12.7 % (12.1-15.1)
[2023-11-12 04:37] LABS: Alanine Aminotransferase 7 U/L (0-41); Albumin Level 3.4 g/dL (3.5-5.2); Alkaline Phosphatase 65 U/L (40-130); Anion Gap 16.4 (5-19); Aspartate Amino Transferase 19 U/L (0-40); Blood Urea Nitrogen 7 mg/dL (6-20); Calcium 8.9 mg/dL (8.5-10.5); Carbon Dioxide 24 mmol/L (22-29); Chloride 102 mmol/L (98-107); Creatinine Clr Calc Pharmacy 163.2851; Globulin 3.4 g/dL (1.3-4.6); Glomerular Filtration Rate 120.9 mL/min (90-130); Glucose 114 mg/dL (65-115); Magnesium 2.1 mg/dL (1.7-2.3); Osmolality Calculated 285 mOsm/kg (285-295); Potassium 4.4 mmol/L (3.5-5.1); Sodium 138 mmol/L (136-145); Total Bilirubin 0.3 mg/dL (0.15-1.2); Total Protein 6.8 g/dL (6.6-8.7)
[2023-11-12] MEDS: sucralfate 1 gm Tablet PO ×3 (08:50→16:10)
[2023-11-12] MEDS: nicotine 21 mg Patch 1 PATCH TRANSDERMA (08:51)
[2023-11-12] MEDS: pantoprazole 40 mg SDV IVP (08:52)
--- NOTE | 2023-11-12 12:06 | P.PN_ITS ---
Subjective 2 Subjective: Awaiting transfer to [facility] for necrotizing pancreatitis. Patient reports he is able to drink okay. He is still having significant abdominal pain. He still desires transfer. He is nauseated at times. Medications: Reviewed: Yes Vitals/I&O/Wt Last Vital Signs Temp 97.0 F L 11/12/23 11:51 Pulse 68 11/12/23 11:51 Resp 18 11/12/23 11:51 BP 113/71 11/12/23 11:51 Pulse Ox 93 11/12/23 11:51 O2 Del Method Room Air 11/12/23 09:35 11/11/23 11/12/23 11/12/23 22:59 06:59 14:59 Intake Total 342 / 1182 360 / 360 Balance 342 / 1182 360 / 360 Weight last 48 hrs Weight 104.825 kg Physical Exam 2 Narrative: General exam no distress Neck is supple Cardiovascular regular rate and rhythm Lungs clear Abdomen tender, epigastric and left side. Bowel sounds noted Extremities no cyanosis clubbing edema Data 11/12/23 04:08 11/12/23 04:08 Micro: Microbiology 11/06/23 17:53 Blood Culture - Final Blood NO GROWTH AFTER 5 DAYS 11/06/23 17:45 Blood Culture - Final Blood NO GROWTH AFTER 5 DAYS A&P Assessment and plan (1) Pancreatitis: CT and MRCP consistent with necrotizing pancreatitis with significant fluid collection. He is now become afebrile, and leukocytosis has resolved He continues to have significant pain, requiring IV narcotics He is able to ingest fluids currently. He does not really want to advance his diet significantly. He would still like to see specialized care, in regards to his complicated pancreatitis with necrosis Continue meropenem Continue Dilaudid, oxycodone Triglycerides were checked and not significantly elevated. Qualifiers: Acute pancreatitis complication: infected necrosis Chronicity: acute P ancreatitis type: unspecified pancreatitis type Qualified Code(s): K85.92 - Acute pancreatitis with infected necrosis, unspecified Plan History of alcohol intake. Discussed with him importance from abstinence from any alcohol whatsoever given risk of recurrent pancreatitis, risk of severe pancreatitis, risk of chronic pancreatitis. He verbalized understanding. He reports no alcohol intake since his last hospital stay. Nicotine dependency: Will make available nicotine replacement as needed. Attestations 2 Medical Necessity Statement*: Continue hospitalization for pain control in this patient with necrotizing pancreatitis with possible phlegmon awaiting transfer to tertiary care Diagnoses Pancreatitis K85.92 Acute pancreatitis complication: infected necrosis Chronicity: acute Pancreatitis type: unspecified pancreatitis type Time Spent (min) 16
[2023-11-12] MEDS: enoxaparin 40 mg/0.4 mL Syringe SUBCUT (16:10)
--- NOTE | 2023-11-12 16:30 | PC.ADMIT ---
509 [facility] Admission Note: The patient,Xander Mcmillan,48 y/o, was given written information regarding hospital policies, unit procedures and contact persons. Patient's smoking status: current every day smoker. Vital Signs - 8 hr 11/12/23 08:52 11/12/23 08:56 11/12/23 09:35 Temperature 97.3 F L Pulse Rate 84 70 Respiratory Rate 18 18 18 Blood Pressure 122/77 113/86 Pulse Oximetry 93 93 92 Oxygen Delivery Method Room Air Room Air 11/12/23 10:51 11/12/23 11:51 11/12/23 12:22 Temperature 97.0 F L Pulse Rate 68 Respiratory Rate 18 18 18 Blood Pressure 113/71 Pulse Oximetry 92 93 93 Oxygen Delivery Method 11/12/23 14:46 11/12/23 15:54 11/12/23 16:10 Temperature 98.0 F Pulse Rate 79 Respiratory Rate 18 18 18 Blood Pressure 119/76 Pulse Oximetry 93 92 92 Oxygen Delivery Method Room Air
--- NOTE | 2023-11-12 17:55 | P.TS_ITS ---
Transfer Summary Providers Date of Admission: 11/07/23 17:57 Date of Discharge/Transfer: 11/12/23 Attending Provider at Admission: Aaron Hagan MD Attending Provider at Transfer: Aaron Hagan MD Transfer Plans: Anticipated date of transfer: 11/12/23 . Receiving Facility: [facility] . Receiving Provider: Dr. Borges . Diagnoses at Discharge Discharge Diagnosis (1) Pancreatitis: Status: Acute Qualifiers: Acute pancreatitis complication: infected necrosis Chronicity: acute Pancreatitis type: unspecified pancreatitis type Qualified Code(s): K85.92 - Ac [place] pancreatitis with infected necrosis, unspecified Reason for Visit Reason for Visit chest pain Hospital Course Hospital Course Patient is a 48-year-old white male with history of alcohol intake who presented with acute pancreatitis. He initially present symptoms on 10/27. There was question of some early necrosis on CT. He was treated conservatively, and also with meropenem. He improved rapidly, wanting to go home on the . At that time he was pain-free. He was noted not to drink, he was given a short course of continued antibiotics, and told to follow-up with his primary care provider as well as GI. He reported he did okay for a while at home, but pain returned eventually and he came back to the emergency department on 11/05. CT at that time demonstrated worsening of his pancreatitis with worsening of his pancreatic necrosis of the body and tail with possible developing phlegmon. He was placed in the hospital for pain control. Triglycerides were again not concerning. He was placed on meropenem. He was given IV fluids and a clear liquid diet. Arrangements were made at that time, for transfer and opinion of tertiary care facility as we do not have GI or hepatobiliary services here and do not have interventional radiology for this particular situation. They graciously excepted the patient. In the interim from 11/05 until today at time of transfer patient has had gradual improvement to where he can take a full liquid diet. He has not had any recurrent fevers. He continues on the meropenem. He has had continued significant pain in his left upper quadrant and left flank that is unremitting still requiring p.o. and IV pain medication. He is still requesting transfer for expert opinion. Patient was stable with hemoglobin of 14.6, creatinine of 0.7, normal LFTs, normal calcium at time of discharge. Albumin is 3.4. Physical Exam Narrative: See exam done earlier today TS Data Studies Completed and Pending Completed Studies During Hospitalization Category Date Time Status CT abdomen pelvis w con* [id number] Stat Cat Scan 11/06/23 14:51 Completed MR MRCP [id number] Routine MRI 11/09/23 09:05 Completed Laboratory Last Values WBC 6.20 10^3/uL (3.29-11.43) 11/12/23 04:08 Corrected WBC Cancelled 11/07/23 09:52 RBC 4.19 10^6/uL (3.85-5.65) 11/12/23 04:08 Hgb 14.60 g/dL (11.27-16.99) 11/12/23 04:08 Hct 42.9 % (37-53) 11/12/23 04:08 MCV 102.4 fl (82-101) H 11/12/23 04:08 MCH 34.8 pg (27-33) H 11/12/23 04:08 MCHC 34.0 g/dL (30-55) 11/12/23 04:08 RDW 12.7 % (12.1-15.1) 11/12/23 04:08 Plt Count 367 10^3/cmm (157-399) 11/12/23 04:08 MPV 9.3 fL (7.4-10.4) 11/12/23 04:08 Gran % Cancelled 11/07/23 09:52 Neut % (Auto) 65.1 % 11/12/23 04:08 Lymph % (Auto) 25.8 % 11/12/23 04:08 [place] % (Auto) 4.7 % 11/12/23 04:08 Eos % (Auto) 2.7 % 11/12/23 04:08 Baso % (Auto) 1.1 % 11/12/23 04:08 Neut # (Auto) 4.03 10^3/uL (1.8-7.7) 11/12/23 04:08 Lymph # (Auto) 1.6 10^3/uL (0.8-4.8) 11/12/23 04:08 [place] # (Auto) 0.3 10^3/uL (0.2-0.9) 11/12/23 04:08 Eos # (Auto) 0.2 10^3/uL (0.0-0.8) 11/12/23 04:08 Baso # (Auto) 0.1 10^3/uL (0.0-0.1) 11/12/23 04:08 Absolute Gran (auto) Cancelled 11/07/23 09:52 Nucleated RBC % (auto) 0 % 11/12/23 04:08 Nucleated RBCs # 0.0 /100WBC 11/12/23 04:08 PT 14.50 SECONDS (12.1-14.9) 11/07/23 17:24 INR 1.10 (0.8-1.2) 11/07/23 17:24 Sodium 138 mmol/L (136-145) 11/12/23 04:08 Potassium 4.4 mmol/L (3.5-5.1) 11/12/23 04:08 Chloride 102 mmol/L (98-107) 11/12/23 04:08 Carbon Dioxide 24 mmol/L (22-29) 11/12/23 04:08 Anion Gap 16.4 (5-19) 11/12/23 04:08 BUN 7 mg/dL (6-20) 11/12/23 04:08 Creatinine 0.7 mg/dL (0.7-1.2) 11/12/23 04:08 GFR Calculation 120.9 mL/min (90-130) 11/12/23 04:08 Glucose 114 mg/dL (65-115) 11/12/23 04:08 Estimat Average Glucose 91 11/07/23 17:24 Hemoglobin A1c 4.8 % (4.0-6.0) 11/07/23 17:24 Calculated Osmolality 285 mOsm/kg (285-295) 11/12/23 04:08 Lactic Acid 0.8 mmol/L (0.5-2.2) 11/07/23 17:24 Calcium 8.9 mg/dL (8.5-10.5) 11/12/23 04:08 Phosphorus 2.9 mg/dL (2.5-4.5) 11/08/23 06:33 Magnesium 2.1 mg/dL (1.7-2.3) 11/12/23 04:08 Total Bilirubin 0.3 mg/dL (0.15-1.2) 11/12/23 04:08 AST 19 U/L (0-40) 11/12/23 04:08 ALT 7 U/L (0-41) 11/12/23 04:08 Alkaline Phosphatase 65 U/L (40-130) 11/12/23 04:08 C-Reactive Protein 63.1 mg/L (0.0-4.9) H 11/07/23 06:53 Total Protein 6.8 g/dL (6.6-8.7) 11/12/23 04:08 Albumin 3.4 g/dL (3.5-5.2) L 11/12/23 04:08 Globulin 3.4 g/dL (1.3-4.6) 11/12/23 04:08 Triglycerides 113 mg/dL (0-150) 11/07/23 17: Cholesterol 118 mg/dL (0-200) 11/07/23 17:24 LDL Cholesterol, Calc 67 mg/dL (50-129) 11/07/23 17:24 HDL Cholesterol 28 mg/dL (60-100) L 11/07/23 17:24 LDL/HDL Ratio 2.39 RATIO (0.00-3.22) 11/07/23 17:24 Cholesterol/HDL Ratio 4.21 mg/dL (1.0-5.00) 11/07/23 17:24 Lipase 86 U/L (13-60) H 11/11/23 04:03 Procalcitonin 0.04 ng/mL (0-0.5) 11/07/23 17:24 TSH 1.56 uIU/mL (0.27-4.20) 11/07/23 17:24 Urine Color Yellow (Yellow) 11/07/23 09:10 Urine Appearance Clear (CLEAR) 11/07/23 09:10 Urine pH 7 (5-7) 11/07/23 09:10 Ur Specific [place] 1.010 (1.005-1.030) 11/07/23 09:10 Urine Protein Neg (Negative) 11/07/23 09:10 Urine Glucose (UA) Norm (Normal) 11/07/23 09:10 Urine Ketones 1+ (Negative) H 11/07/23 09:10 Urine Blood Neg (Negative) 11/07/23 09:10 Urine Nitrate Negative (Negative) 11/07/23 09:10 Urine Bilirubin Neg (Negative) 11/07/23 09:10 Urine Urobilinogen Norm mg/dL (Negative) 11/07/23 09:10 Ur Leukocyte Esterase Negative (Negative) 11/07/23 09:10 Urine Opiates Screen Positive ng/mL (Negative) H 11/07/23 09:10 Ur Barbiturates Screen Negative ng/mL (Negative) 11/07/23 09:10 Ur Phencyclidine Scrn Negative ng/mL (Negative) 11/07/23 09:10 Ur Amphetamines Screen Negative ng/mL (Negative) 11/07/23 09:10 U Benzodiazepines Scrn Negative ng/mL (Negative) 11/07/23 09:10 Urine Cocaine Screen Negative ng/mL (Negative) 11/07/23 09:10 U Marijuana (THC) Screen Negative ng/mL (Negative) 11/07/23 09:10 Ethyl Alcohol < 10 mg/dL (0-10) 11/07/23 17:24 Radiology Impressions Abdomen/Pelvis CT 11/06/23 14:51 IMPRESSION: Interval worsening in appearance of the pancreatitis from prior exam 10/28/2023, as noted above. Appearance suggest necrotizing pancreatitis with increased fluid density involving the body and tail and surrounding region of the pancreas, likely phlegmon and/or developing abscesses. Reactive changes versus involvement of the posterior margin of the stomach. ADDENDUM: 11/06/23 [id number] THIS REPORT CONTAINS FINDINGS THAT MAY BE CRITICAL TO PATIENT CARE. The findings were verbally communicated via telephone conference with JUAN Bowers at 4:20 PM CDT on 11/06/2023. The findings were acknowledged and understood. ADDENDUM: 11/09/23 [id number] ADDENDUM: Findings were discussed via telephone conference with Dr. Kim at 9:39 AM CDT on 11/09/2023. The large peripancreatic fluid collection surrounding the tail of the pancreas is most consistent with an acute necrotizing collection. This collection does not demonstrate a peripheral rind or significant peripheral postcontrast enhancement to suggest a walled-off abscess. This finding is consistent with a noninfected acute necrotic collection; however, infection cannot be excluded on imaging. The collection does appear to abut and possibly involve the posterior stomach, raising concern for potential necrosis of the posterior stomach. The anatomy of this area may be better delineated using MRCP. Cholangiopancreatography MRI 11/09/23 09:05 IMPRESSION: 1. Evaluation limited by technique. 2. Abnormal appearance of the distal pancreas consistent with features of necrosis seen on prior CT. For more detailed assessment of extent of necrosis, repeat study utilizing IV contrast and postcontrast subtraction views recommended. 3. Fluid collection surrounding the distal pancreas consistent with acute peripancreatic collection; again, for assessment of possible acute necrotic collection, which is a pancreatic parenchymal finding, repeat study utilizing contrast with subtraction views recommended. 4. Small solitary gallbladder polyp versus calculus. No evidence of biliary dilatation. 5. Small bilateral pleural effusions. Recent Clincial Data Last Vital Signs Temp 98.0 F 11/12/23 15:54 Pulse 79 11/12/23 15:54 Resp 18 11/12/23 17:53 BP 119/76 11/12/23 15:54 Pulse Ox 92 11/12/23 17:53 O2 Del Method Room Air 11/12/23 15:54 Vital Signs Temp Pulse Resp BP Pulse Ox O2 Del Method 11/12/23 17:53 18 92 11/12/23 16:10 18 92 11/12/23 15:54 98.0 F 79 18 119/76 92 Room Air 11/12/23 14:46 18 93 11/12/23 12:22 18 93 11/12/23 11:51 97.0 F L 68 18 113/71 93 11/12/23 10:51 18 92 11/12/23 09:35 70 18 113/86 92 Room Air 11/12/23 08:56 97.3 F L 84 18 122/77 93 Room Air 11/12/23 08:52 18 93 11/12/23 07:56 97.3 F L 84 18 122/77 93 Room Air 11/12/23 06:00 62 Intake & Output/Weight 11/10/23 11/11/23 11/12/23 11/13/23 06:59 06:59 06:59 06:59 Intake Total 1760.000 / 5497.221 5222.667 / 3591.667 1182 / 1182 840 / 840 Output Total 1500 / 1500 2750 / 2750 Balance 260.000 / 260.000 841.667 / 963.987 5097 / 1182 840 / 840 Weight 105.143 kg 104.825 kg Vitals Last Vital Signs Temp 98.0 F 11/12/23 15:54 Pulse 79 11/12/23 15:54 Resp 18 11/12/23 17:53 BP 119/76 11/12/23 15:54 Pulse Ox 92 11/12/23 17:53 O2 Del Method Room Air 11/12/23 15:54 TS Medications Medications Acetaminophen (Acetaminophen 325 Mg Tablet) 650 mg PO Q6H PRN PRN Reason: Mild/Mod Pain Or Temp >/= 101 Enoxaparin Sodium (Enoxaparin 40 Mg/0.4 Ml Syringe) 40 mg SUBCUT Q24H SHIRA Last Admin: 11/12/23 16:10 Dose: 40 mg Hydromorphone HCl (Hydromorphone 1 Mg/Ml Inj 1 Ml) 0.5 mg IVP Q3H PRN PRN Reason: SEVERE PAIN Last Admin: 11/12/23 17:53 Dose: 0.5 mg Meropenem (Meropenem 1,000 Mg Sdv) 1,000 mg IVP Q8H SHIRA; Protocol Last Admin: 11/12/23 16:10 Dose: 1,000 mg Nicotine (Nicotine 21 Mg Patch) 1 patch TRANSDERMA DAILY PRN PRN Reason: WITHDRAWAL Last Admin: 11/12/23 08:51 Dose: 1 patch Nicotine Polacrilex (Nicotine 4 Mg Lozenge) 4 mg MUCOUS MEM Q4H PRN PRN Reason: NICOTINE CRAVINGS Ondansetron HCl (Ondansetron 2 Mg/Ml Sdv 2 Ml) 4 mg IVP Q6H PRN PRN Reason: NAUSEA Oxycodone/Acetaminophen (Oxycodone-Apap 5-325 Mg Tablet) 1 tab PO Q4H PRN PRN Reason: MODERATE PAIN Last Admin: 11/12/23 16:10 Dose: 1 tab Pantoprazole Sodium (Pantoprazole 40 Mg Sdv) 40 mg IVP Q12H SHIRA Last Admin: 11/12/23 08:52 Dose: 40 mg Sucralfate (Sucralfate 1 Gm Tablet) 1 gm PO AC&BEDTIME SHIRA Last Admin: 11/12/23 16:10 Dose: 1 gm Discontinued Medications Hydromorphone HCl (Hydromorphone 1 Mg/Ml Inj 1 Ml) 1 mg IVP ONCE ONE Stop: 11/06/23 18:46 Last Admin: 11/06/23 19:09 Dose: 1 mg Hydromorphone HCl (Hydromorphone 1 Mg/Ml Inj 1 Ml) 1 mg IVP ONCE ONE Stop: 11/07/23 00:20 Last Admin: 11/07/23 00:27 Dose: 1 mg Hydromorphone HCl (Hydromorphone 1 Mg/Ml Inj 1 Ml) 1 mg IVP ONCE ONE Stop: 11/07/23 05:32 Last Admin: 11/07/23 05:35 Dose: 1 mg Hydromorphone HCl (Hydromorphone 1 Mg/Ml Inj 1 Ml) 0.5 mg IVP Q4H PRN PRN Reason: PAIN Last Admin: 11/07/23 09:07 Dose: 0.5 mg Hydromorphone HCl (Hydromorphone 1 Mg/Ml Inj 1 Ml) 0.5 mg IVP Q3H PRN PRN Reason: PAIN Last Admin: 11/07/23 12:11 Dose: 0.5 mg Hydromorphone HCl (Hydromorphone 1 Mg/Ml Inj 1 Ml) 0.5 mg IVP Q2H PRN PRN Reason: severe pain Last Admin: 11/08/23 08:09 Dose: 0.5 mg Hydromorphone HCl (Hydromorphone 1 Mg/Ml Inj 1 Ml) 0.5 mg IVP Q6H PRN PRN Reason: SEVERE PAIN Last Admin: 11/09/23 02:17 Dose: 0.5 mg Hydromorphone HCl (Hydromorphone 1 Mg/Ml Inj 1 Ml) 0.5 mg IM ONCE ONE Stop: 11/09/23 15:51 Last Admin: 11/09/23 16:46 Dose: Not Given Sodium Chloride (Sodium Chloride 0.9%) 1,000 mls @ 999 mls/hr IV .Q1H1M ONE Stop: 11/06/23 15:51 Last Infusion: 11/06/23 18:06 Dose: Infused Sodium Chloride (Sodium Chloride 0.9%) 3,129.78 mls @ 3,129.78 mls/hr 30 ml/kg infuse over 1 hr (3129.78 ml) IV .Q1H ONE Stop: 11/06/23 17:18 Last Infusion: 11/07/23 00:24 Dose: Infused Piperacillin Sod/Tazobactam (Sod 3.375 gm/ Sodium Chloride) 50 mls @ 100 mls/hr IV ONCE ONE; Protocol Stop: 11/06/23 16:49 Last Infusion: 11/06/23 19:12 Dose: Infused Piperacillin Sod/Tazobactam (Sod 3.375 gm/ Sodium Chloride) 50 mls @ 100 mls/hr IV ONCE ONE; Protocol Stop: 11/07/23 00:48 Last Infusion: 11/07/23 01:42 Dose: Infused Piperacillin Sod/Tazobactam (Sod 3.375 gm/ Sodium Chloride) 50 mls @ 12.5 mls/hr IV Q8H SHIRA; Protocol Last Infusion: 11/07/23 12:06 Dose: Infused Potassium Chloride/Sodium Chloride (Sodium Chlor 0.9% + Kcl 20 Meq) 20 meq in 1,000 mls @ 100 mls/hr IV .Q10H SHIRA Last Infusion: 11/10/23 22:25 Dose: Infused Sterile Water (Water) Confirm Administered Dose 20 mls @ as directed .ROUTE .STK-MED ONE Stop: 11/08/23 10:52 Last Infusion: 11/08/23 11:11 Dose: Infused Sterile Water (Water) Confirm Administered Dose 20 mls @ as directed .ROUTE .STK-MED ONE Stop: 11/08/23 17:27 Last Infusion: 11/08/23 17:39 Dose: Infused Sterile Water (Water) Confirm Administered Dose 20 mls @ as directed .ROUTE .STK-MED ONE Stop: 11/09/23 07:40 Last Infusion: 11/09/23 10:07 Dose: Infused Sterile Water (Water) Confirm Administered Dose 20 mls @ as directed .ROUTE .STK-MED ONE Stop: 11/09/23 17:13 Last Infusion: 11/09/23 17:34 Dose: Infused Iohexol (Iohexol 350 Mg/Ml 500 Ml Btl (Per Ml)) 0 ml IV ONCE ONE Stop: 11/06/23 15:17 Last Admin: 11/06/23 15:16 Dose: 100 ml Morphine Sulfate (Morphine 4 Mg/Ml Sdv 1 Ml) 4 mg IVP ONCE ONE Stop: 11/06/23 14:52 Last Admin: 11/06/23 15:10 Dose: 4 mg Morphine Sulfate (Morphine 4 Mg/Ml Sdv 1 Ml) 4 mg IVP ONCE ONE Stop: 11/06/23 17:31 Last Admin: 11/06/23 18:04 Dose: 4 mg Nicotine (Nicotine 21 Mg Patch) 1 patch TRANSDERMA ONCE ONE Stop: 11/07/23 12:14 Last Admin: 11/07/23 12:30 Dose: 1 patch Ondansetron HCl (Ondansetron 2 Mg/Ml Sdv 2 Ml) 4 mg IVP ONCE ONE Stop: 11/06/23 14:52 Last Admin: 11/06/23 15:10 Dose: 4 mg Allergies No Known Allergies Allergy (Verified 11/06/23 13:38) Home Medications trazodone 50 mg tablet 50 mg PO BEDTIME 10/28/23 [History Confirmed 11/07/23] ciprofloxacin HCl 500 mg tablet 500 mg PO BID #14 tabs 10/31/23 [Rx Confirmed 11/07/23] docusate sodium 100 mg capsule (Colace) 100 mg PO BID #30 caps 10/31/23 [Rx Confirmed 11/07/23] metronidazole 500 mg tablet 500 mg PO TID #21 tabs 10/31/23 [Rx Confirmed 11/07/23] naloxone 4 mg/actuation nasal spray (Narcan) 4 mg intranasal Q2M PRN opioid overdose #2 ea 10/31/23 [Rx Confirmed 11/07/23] oxycodone 5 mg tablet 5 mg PO Q4H PRN pain #20 tabs 10/31/23 [Rx Confirmed 11/07/23] pantoprazole 40 mg tablet,delayed release (Protonix) 40 mg PO DAILY #30 tabs 10/31/23 [Rx Confirmed 11/07/23] Discharge Plan Discharge Patient Disposition: Xfer Short-Term Hosp Condition: Stable Prescriptions: No Action trazodone 50 mg tablet 50 mg PO BEDTIME pantoprazole [Protonix] 40 mg tablet,delayed release (DR/EC) 40 mg PO DAILY Qty: 30 0RF naloxone [Narcan] 4 mg/actuation spray,non-aerosol 4 mg intranasal Q2M PRN (Reason: opioid overdose) Qty: 2 0RF Rx Instructions: spray 1 dose into ONE nostril; alternate nostrils w each dose until help arrives ciprofloxacin HCl 500 mg tablet 500 mg PO BID Qty: 14 0RF metronidazole 500 mg tablet 500 mg PO TID Qty: 21 0RF docusate sodium [Colace] 100 mg capsule 100 mg PO BID Qty: 30 0RF oxycodone 5 mg tablet 5 mg PO Q4H PRN (Reason: pain) Qty: 20 0RF Discharge Orders: Transfer Out of Facility (Order); Ordered 11/12/23 Ordered By: Aaron Hagan Referrals: Julianne Granger FNP [Referring] - Patient Instructions: Opioid Safety Transfer Attestations Time Spent in Transfer Care: greater than 30 min Quality Metrics Clinical Quality Measures [ No reported AMI, CVA or VTE this stay] Coding Level of Care Code Acute Code for [facility] Fwd Diagnoses Pancreatitis K85.92 Acute pancreatitis complication: infected necrosis Chronicity: acute Pancreatitis type: unspecified pancreatitis type Time Spent (min) 31
--- NOTE | 2023-11-12 18:50 | PC.NURSE ---
[facility] called and had an available bed for patient. This nurse called [facility] for transportation. Per Deon with [facility], there will not be an ambulance crew available until tomorrow morning 11/13/23 at 0700. There would be a possibility of patient losing bed at [facility]. This nurse then contacted [employer] [facility] and they had a flight available. [facility] accepted patient and should arrive within 10 minutes.
== END 2023-11-12 07:05 | disposition short-term general hospital (02) | DRG 440 ==
LOC: ER 11-07 17:43 → MEDSURG 11-07 17:58
PROVIDERS: Emergency Medicine; Family Medicine; Internal Medicine; Admitting Provider Internal Medicine; Emergency Provider Family Medicine; Visit Provider Internal Medicine
DX: K85.92 Acute pancreatitis with infected necrosis, unspecified (principal); F17.210 Nicotine dependence, cigarettes, uncomplicated; F10.10 Alcohol abuse, uncomplicated
CPT/HCPCS: 36415; 74177; 74181; 80053; 80061; 80306; 80307; 81003; 83036; 83605; 83690; 83735; 84100; 84145; 84443; 84478; 85025; 85610; 86140; 87040; 93005; 94664; 96365; 96372; 96375; 96376; 99285; C9113; J1170; J1650; J2185; J2270; J2405; J2543; J3480; J7030; Q9967

== ENCOUNTER 2024-01-24 14:47 | Outpatient (CLI) | payer BC, SELFPAY ==
--- NOTE | 2024-01-24 14:57 | CTR_ITS ---
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 Radiation optimization: All CT scans at this facility use at least one of these dose optimization techniques: automated exposure control; mA and/or kV adjustment per patient size (includes targeted exams where dose is matched to clinical indication); or iterative reconstruction. Contrast material: OMNI 350; Contrast volume: 95 ml; Contrast route: INTRAVENOUS (IV); COMPARISON: MR MRCP [id number] 11/09/2023 12:13 PM RADIATION DOSE METRICS: Total DLP (mGy-cm): 1501.63 FINDINGS: Lungs: Minimal dependent bibasilar atelectasis. Liver: There is a diffuse decrease in hepatic parenchymal density, consistent with fatty infiltration. Gallbladder and biliary ducts: 3 mm gallstone versus polyp again noted. Pancreas: Organizing, masslike collection in the tail of the pancreas demonstrating heterogenous hypoattenuating predominant attenuation measuring 8.2 x 6.2 x 5.8 cm, likely sequela of previous acute pancreatitis episode. No surrounding inflammatory changes or signs of recurrent/persistent acute pancreatitis. 17 mm cystic abnormality along the anterior margin of the pancreatic body noted. Spleen: The spleen appears normal. Adrenal glands: The adrenals appear normal. Kidneys and ureters: 13 mm fluid density cyst in the posterior interpolar region of the left kidney. The kidneys enhance symmetrically and empty into non-dilated ureters. Stomach and bowel: The stomach is unremarkable. The small bowel loops are not abnormally dilated. The large bowel loops are not abnormally dilated. Appendix: No signs of appendicitis. Intraperitoneal space: No ascites or significant fluid collection. Vasculature: The splenic vein appears occluded. A few collaterals are noted in the left upper quadrant. Lymph nodes: There are no enlarged lymph nodes. Urinary bladder: The bladder is distended and demonstrates no focal contour abnormality. Reproductive: Unremarkable as visualized. Bones/joints: Unremarkable. Soft tissues: Unremarkable. CT/CT abdomen pelvis wo/w [id number] IMPRESSION: 1. Organizing, masslike collection in the tail of the pancreas demonstrating heterogenous hypoattenuating predominant attenuation measuring 8.2 x 6.2 x 5.8 cm, likely sequela of previous acute pancreatitis episode. No surrounding inflammatory changes or signs of recurrent/persistent acute pancreatitis. 2. Hepatic steatosis. COMMENTS: Consistent with the [employer]'s Incidental Findings Committee white paper (J Am Kaitlin Radiol 2018): Any incidental renal lesion less than 1 cm or classified as too small to characterize, or any incidental cystic renal lesion characterized as simple-appearing, is likely benign. No follow-up imaging is recommended for these lesions per consensus recommendations based on imaging criteria.
[2024-01-24] MEDS: iohexol 350 mg/mL 500 mL Btl (per mL) IV (16:02)
[2024-01-24] MEDS: iohexol 350 mg/mL 500 mL Btl (per mL) PO (16:03)
== END 2024-01-24 14:48 | disposition home or self-care (01) ==
LOC: RAD 14:49
PROVIDERS: Visit Provider Nurse Practitioner Adult Health
DX: K85.91 Acute pancreatitis with uninfected necrosis, unspecified (principal); K21.9 Gastro-esophageal reflux disease without esophagitis; K76.0 Fatty (change of) liver, not elsewhere classified
CPT/HCPCS: 74178

== ENCOUNTER 2024-03-18 13:01 | Outpatient (CLI) | payer BC, SELFPAY ==
--- NOTE | 2024-03-18 13:10 | CTR_ITS ---
PROCEDURE INFORMATION: Exam: CT Abdomen And Pelvis Without And With Contrast Exam date and time: 03/18/2024 2:31 PM Age: 48 years old Clinical indication: Condition or disease; Pancreatic condition; Pancreatitis; Additional info: Acute necrotizing pancreatitis TECHNIQUE: Imaging protocol: Computed tomography of the abdomen and pelvis without and with contrast. Radiation optimization: All CT scans at this facility use at least one of these dose optimization techniques: automated exposure control; mA and/or kV adjustment per patient size (includes targeted exams where dose is matched to clinical indication); or iterative reconstruction. Contrast material: OMNI 350; Contrast volume: 100 ml; Contrast route: INTRAVENOUS (IV); COMPARISON: CT abdomen pelvis wo/w [id number] 01/24/2024 3:52 PM RADIATION DOSE METRICS: Total DLP (mGy-cm): 2123.63 FINDINGS: Liver: Normal. No mass. Gallbladder and biliary ducts: Normal. No calcified stones. No ductal dilation. Pancreas: The phlegmon involving the lateral body and tail of the pancreas is either unchanged or minimally smaller than before. There is a 14 mm low-attenuation structure in the neck of the pancreas which probably represents a small cyst, it was present before and is unchanged. Spleen: Normal. No splenomegaly. Adrenal glands: Normal. No mass. Kidneys and ureters: Small left renal cyst. Stomach and bowel: Unremarkable. No obstruction. No mucosal thickening. Appendix: No evidence of appendicitis. Intraperitoneal space: Unremarkable. No free air. No significant fluid collection. Vasculature: Unremarkable. No abdominal aortic aneurysm. Lymph nodes: Unremarkable. No enlarged lymph nodes. Urinary bladder: Unremarkable as visualized. Reproductive: Unremarkable as visualized. Bones/joints: Unremarkable. No acute fracture. Soft tissues: Unremarkable. CT/CT abdomen pelvis wo/w [id number] IMPRESSION: No significant interval change. COMMENTS: Consistent with the [employer]'s Incidental Findings Committee white paper (J Am Kaitlin Radiol 2018): Any incidental renal lesion less than 1 cm or classified as too small to characterize, or any incidental cystic renal lesion characterized as simple-appearing, is likely benign. No follow-up imaging is recommended for these lesions per consensus recommendations based on imaging criteria.
[2024-03-18] MEDS: iohexol 350 mg/mL 500 mL Btl (per mL) PO (13:48)
[2024-03-18] MEDS: iohexol 350 mg/mL 500 mL Btl (per mL) IV (14:51)
== END 2024-03-18 13:02 | disposition home or self-care (01) ==
LOC: RAD 13:01
PROVIDERS: Visit Provider Internal Medicine
DX: K85.91 Acute pancreatitis with uninfected necrosis, unspecified (principal); N28.1 Cyst of kidney, acquired
CPT/HCPCS: 74178